=== PATIENT | female | born 1950 | race Caucasian/White ===

== ENCOUNTER 2025-05-01 12:56 | Outpatient (CLI) | payer MEDICARE, SELFPAY ==
--- OUTSIDE RECORDS SUMMARY | 2025-03-22 13:00 | XMS_ITS | Encounter Summary ---
Author Organization [employer] ([place], [place], [place], [place]) Address [address] [place] [address] Care Team Providers Care Healthcare Administration Intern Name Role Phone Fidencio Walsh MD Primary Care Provider [phone] Miranda Menjivar MD Unavailable [phone] Kirsten Ku MD Unavailable [phone] Reason for Referral * DXA (Routine) - Authorized Specialty Diagnoses / Procedures Referred By Deniz lindo Referred To Contact Radiology Diagnoses History of breast cancer Procedures DXA bone density spine and hip Tonja Green PA-C [address] [place] [address] Phone: tel: fax: [address] [place] [address] Phone: tel: fax: Referral ID Status Reason Start Date Expiration Date V isits Requested Visits Authorized [id number] Authorized 03/22/2025 03/22/2026 1 1 Reason for Visit * Reason Comments Follow-up History of breast ca ncer Encounter Details Date Type Department Care Team (Late st Contact Info) Description 03/22/2025 1:00 PM EDT Office Visit [facility] [address] [place] [address] Tonja Green PA-C [address] [facility] [address] [place] [address] History of breast cancer (Primary Dx); Anemia, unspecified type Social History Tobacco Use Types Packs/Day Years Used Date Smoking Tobacco: Former Smokeless Tobacco: Never Tobacco Cessation:Counseling Given: Not Answered Alcohol Use Standard Drinks/Week Comments Not Currently 0 (1 standard drink = 0.6 oz pur e alcohol) Family and Community Support Answer Keshawn e Recorded Help with Day to Day Activities Not on file 09/07/2023 Feeling Lonely or Isolated Not on file 09/07 Educational Attainment Answer Date Cl rded Speak language other than Icelandic at home Not on file 09/07/2023 Want help with school or training Not on file 09/07/2023 Substance Use Answer Date Recorded Used prescription meds for non-medical reasons N ot on file 09/07/2023 Used illegal drugs past 12 months Not on file 09/07/2023 Comments No Sex and Gender Information Value Date Recorded Sex Assigned at Not on file Legal Sex Female 3:28 PM CDT Gender Identity Not on file Sexual Orientation Not on file documented as of this encounter Last Filed Vital Signs Vital Sign Reading Time Taken Comments Blood Pressure 173/74 03/22/2025 12:57 PM EDT Pulse 52 03/22/2025 12:57 PM EDT Temperature 36.1 C (97 F) 03/22/2025 12:57 PM EDT Respiratory Rate 18 03/22/2025 12:57 PM EDT Oxygen Saturation 95% 03/22/2025 12:57 PM EDT Inhaled Oxygen Concentration - - Weight 74.9 kg (165 lb 1.6 oz) 03/22/2025 12:57 PM EDT Height 162.6 cm (5' 4 ) 03/22/2025 12:57 PM EDT Body Mass Index 28.34 03/22/2025 12:57 PM EDT documented in this encounter Progress Notes * Tonja Green PA-C - 03/22/2025 1:00 PM EDT Images from the original note were not included. Oncology Clinic Note Cancer History: Presented 05/19 with 24 mm microcalcifications in RUIQ. Pathology with DCIS, ER >90% positive and AR >75% positive. S/p right lumpectomy 07/19, DCIS only, margins uninvolved. Declined adjuvant XRT. Anastrozole 07/19--current. Chief Complaint: Chief Complaint Patient presents with Follow-up History of breast cancer History of Present Illness: Alba Gerber is a 74 y.o. female Returns for follow-up of DCIS on anastrozole as well as anemia. No specific concerns today. No breast concerns, bone pain, dyspnea, headaches. She is compliant with Anastrozole and tolerating well. She is also taking oral iron daily. No other concerns at this time. Past Medical History: Diagnosis Date Chronic back pain COVID-19 vaccine series completed Ductal carcinoma in situ (DCIS) of breast Gastric ulcer Heart disease High cholesterol Neuropathy Thyroid disease Past Surgical History: Procedure Laterality Date ankle surgery CARPAL TUNNEL RELEASE CHOLECYSTECTOMY triple bypass TUBAL LIGATION Social History Socioeconomic History Marital status: Spouse name: Not on file Number of children: Not on file Years of education: Not on file Highest education level: Not on file Occupational History Not on file Tobacco Use Smoking status: Former Smokeless tobacco: Never Vaping Use Vaping status: Never Used Substance and Sexual Activity Alcohol use: Not Currently Drug use: Never Sexual activity: Not on file Other Topics Concern Not on file Social History Narrative Not on file Social Drivers of Health Food Insecurity: Not on file Transportation: Not on file Family History Problem Relation Name Age of Onset Diabetes Mother Lung cancer Father Coronary artery disease Father Diabetes Father Hypertension Father Kidney disease Father Breast cancer Cousin Kaylin Cancer Brother Rashel Ovarian cancer Neg Hx Allergies: Codeine Medications: Current Outpatient Medications on File Prior to Visit Medication Sig Dispense Refill amitriptyline (ELAVIL) 50 MG tablet Take 1 tablet (50 mg total) by mouth nightly. aspirin 81 MG chewable tablet Take 1 tablet (81 mg total) by mouth. brinzolamide-brimonidine (Simbrinza) 1-0.2 % DrpS calcium carbonate (OS-WILLIE) 600 mg calcium (1,500 mg) Tab Take 600 mg by mouth 2 (two) times daily with breakfast and dinner. carvediloL (COREG) 12.5 MG tablet TAKE 1 TABLET BY MOUTH TWICE DAILY. THIS IS A DOSE CHANGE 180 tablet 0 cetirizine (ZyrTEC) 10 MG tablet Take 1 tablet (10 mg total) by mouth daily. coenzyme Q10 100 mg capsule Take 1 capsule (100 mg total) by mouth daily. diclofenac sodium 1 % gel 4 g by Topical route. ferrous sulfate 325 (65 FE) MG tablet Take 1 tablet (325 mg total) by mouth daily with breakfast. fluticasone propionate (FLONASE) 50 mcg/actuation nasal spray Administer 2 sprays into affected nostril(s). GaviLyte-G 236-22.74-6.74 -5.86 gram solution Take by mouth. guaiFENesin (mucINEX) 600 mg 12 hr tablet Take 2 tablets (1,200 mg total) by mouth 2 (two) times daily. 30 tablet 0 levothyroxine (SYNTHROID) 100 MCG tablet Take 1 tablet (100 mcg total) by mouth daily. levothyroxine (SYNTHROID) 88 MCG tablet Take 1 tablet (88 mcg total) by mouth daily. losartan (COZAAR) 50 MG tablet Take 1 tablet (50 mg total) by mouth daily. montelukast (SINGULAIR) 10 mg tablet Take 1 tablet (10 mg total) by mouth nightly. rosuvastatin (CRESTOR) 20 MG tablet Take 1 tablet (20 mg total) by mouth every evening. timolol (TIMOPTIC) 0.5 % ophthalmic solution Administer 1 drop into affected eye(s) 2 (two) times daily. [DISCONTINUED] anastrozole (ARIMIDEX) 1 mg tablet TAKE 1 TABLET BY MOUTH DAILY 100 tablet 2 No current facility-administered medications on file prior to visit. Review of Systems: 10 systems reviewed and negative except as noted per HPI Vitals Vitals: 03/22/25 1257 BP: (!) 173/74 Pulse: 52 Resp: 18 Temp: 95 ??F (35 ??C) SpO2: 95% Physical Exam Vitals reviewed. Constitutional: General: She is not in acute distress. Appearance: Normal appearance. She is normal weight. She is not ill-appearing or toxic-appearing. HENT: Head: Normocephalic and atraumatic. Nose: Nose normal. Eyes: Extraocular Movements: Extraocular movements intact. Conjunctiva/sclera: Conjunctivae normal. Pupils: Pupils are equal, round, and reactive to light. Cardiovascular: Rate and Rhythm: Normal rate and regular rhythm. Heart sounds: Murmur heard. Pulmonary: Effort: Pulmonary effort is normal. No respiratory distress. Breath sounds: Normal breath sounds. No wheezing, rhonchi or rales. Chest: Chest wall: No mass or tenderness. Breasts: Right: No inverted nipple, mass, nipple discharge, skin change or tenderness. Left: No inverted nipple, mass, nipple discharge, skin change or tenderness. Abdominal: General: There is no distension. Musculoskeletal: General: Normal range of motion. Cervical back: Normal range of motion and neck supple. Right lower leg: No edema. Left lower leg: No edema. Lymphadenopathy: Cervical: No cervical adenopathy. Upper Body: Right upper body: No supraclavicular or axillary adenopathy. Left upper body: No supraclavicular or axillary adenopathy. Skin: General: Skin is warm and dry. Coloration: Skin is not jaundiced or pale. Neurological: General: No focal deficit present. Mental Status: She is alert and oriented to person, place, and time. Motor: No weakness. Gait: Gait normal. Psychiatric: Mood and Affect: Mood normal. Behavior: Behavior normal. Thought Content: Thought content normal. Judgment: Judgment normal. Relevant Results: Office Visit on 03/22/2025 Component Date Value Ref Range Status WBC 03/22/2025 6.9 4.5 - 12.5 K/??L Final RBC 03/22/2025 4.34 4.00 - 5.25 M/??L Final Hemoglobin 03/22/2025 13.3 12.0 - 16.0 GM/DL Final Hematocrit 03/22/2025 41.8 36.0 - 46.0 % Final MCV 03/22/2025 96 80 - 100 fL Final MCH 03/22/2025 30.6 26.0 - 34.0 pg Final MCHC 03/22/2025 31.8 31.0 - 37.0 GM/DL Final RDW 03/22/2025 13.0 12.0 - 16.8 % Final Platelets 03/22/2025 266 140 - 440 K/CU MM Final MPV 03/22/2025 9.3 7.4 - 10.4 fL Final % Neutros 03/22/2025 60 45 - 80 % Final % Lymphs 03/22/2025 29 15 - 45 % Final % Monos 03/22/2025 8 0 - 10 % Final % Eos 03/22/2025 3 0 - 5 % Final % Baso 03/22/2025 1 0 - 3 % Final # Neutros 03/22/2025 4.15 2.00 - 8.80 K/??L Final # Lymphs 03/22/2025 2.01 0.70 - 5.50 K/??L Final # Monos 03/22/2025 0.55 0.00 - 1.70 K/??L Final # Eos 03/22/2025 0.19 0.00 - 0.80 K/??L Final # Baso 03/22/2025 0.04 0.00 - 0.20 K/??L Final Media Information Plan: Cancer Staging Malignant neoplasm of upper-inner quadrant of right breast in female, estrogen receptor positive (HCC) Staging form: Breast, AJCC 8th Edition - Clinical stage from 06/03/2021: Stage 0 (cTis (DCIS), cN0, cM0, ER+, AR+) - Signed by Kirsten Ku MD on 07/09/2022 74 y.o. female with DCIS of the right breast. Tolerating adjuvant anastrozole well. We will continue for 5 years, complete 07/24. - Physical exam today was unremarkable. October 2024 mammogram was unremarkable. Repeat 11/21. - Complaint with Anastrozole. Tolerating well. - Continue calcium and vitamin D. Overdue for her DEXA, repeat ordered today. Prior showing NBD. - Regarding her anemia found back in January, she has had a thorough GI workup with no source of bleeding found. She continues on oral iron supplementation. Iron studies from today are pending. - Recommended to monitor her BP at home. For any persistently elevated readings to advised to contact her PCP. Follow-up in 6 months. Advised to call with any new questions or concerns. Signed: Electronically signed by Tonja Green PA-C 03/22/25 1:34 PM documented in this encounter Miscellaneous Notes * Result Encounter Note - Tonja Green PA-C - 03/22/2025 1:00 PM EDT Kidney dysfunction appears somewhat chronic. Push fluids, avoid NSAIDs. Follow- up with PCP for this. documented in this encounter Plan of Treatment Upcoming Encounters Date Type Department Care Team (Late st Contact Info) Description 11/12/2025 1:00 PM EDT Office Visit [facility] - [address] [place] [address] Alicia Cruz MD [address] [place] [address] 11/21/2025 11:00 AM EDT Appointment [facility] [address] [facility] [address] [place] [id number] Tonja Green PA-C [address] [facility] [address] [place] [address] 11/21/2025 12:00 PM EDT Appointment [facility] [address] [facility] [address] [place] [address] Valentin Chaves MD [address] [facility] [address] [place] [address] 11/21/2025 1:00 PM EDT Office Visit [facility] [address] [facility] [address] [place] [address] Valentin Chaves MD [address] [facility] [address] [place] [address] 11/21/2025 3:00 PM EDT Office Visit [facility] - [facility] [address] [place] [phone] Kirsten Ku MD [address] [place] [address] Scheduled Orders Name Type Priority Associated Diagnoses Orde r Schedule DXA bone density spine and hip Imaging Routine History of breast cancer Expected: 03/22/2025, Expires: 04/22/2026 CBC w/ Auto Diff Lab Routine History of breast cancer Anemia, unspecified type Expected: 11/21/2025, Expires: 03/22/2026 CMP (done in hospital lab) Lab Routine History of breast cancer Anemia, unspecified type Expected: 11/21/2025, Expires: 03/22/2026 Iron and TIBC Lab Routine History of breast cancer Anemia, unspecified type Expected: 11/21/2025, Expires: 03/22/2026 Ferritin Lab Routine History of breast cancer Anemia, unspecified type Expected: 11/21/2025, Expires: 03/22/2026 documented as of this encounter Procedures Procedure Name Priority Date/Time Associated Diagnosis Comments CBC W/ AUTO DIFF Routine 03/22/2025 12:5 1 PM EDT History of breast cancer Anemia, unspecified type IRON AND TIBC Routine 03/22/2025 12:51 PM EDT History of breast cancer Anemia, unspecified type FERRITIN Routine 03/22/2025 12:51 PM EDT History of breast cancer Anemia, unspecified type COMPREHENSIVE METABOLIC PANEL Routine 03/22/2025 12:51 PM EDT History of breast cancer Anemia, unspecified type documented in this encounter Results * Ferritin (03/22/2025 12:51 PM EDT) Ferritin 55.00 8.00 - 252.00 ng/mL 03/22/2025 3:00 PM EDT [facility] Blood Venipuncture / Unknown 03/22/2025 12:51 PM EDT 03/22/2025 12:56 PM EDT us Tonja Peter PA-C LAB BLOOD ORDERABLES Final Re sult Performing Organization Address [facility]/ZIP Co de Phone Number [facility] [address] [place] [address], [facility] [phone] * Iron and TIBC (03/22/2025 12:51 PM EDT) Iron 77 50.0 - 170.0 ug/dL 03/22/2025 3:00 PM EDT [facility] TIBC 291 250 - 450 ug/dL 03/22/2025 3:00 PM EDT [facility] % Saturation 26 15 - 55 % 03/22/2025 3:00 PM EDT [facility] UIBC 214 03/22/2025 3:00 PM EDT [facility] Blood Venipuncture / Unknown 03/22/2025 12:51 PM EDT 03/22/2025 12:56 PM EDT Tonja Green PA-C LAB BLOOD ORDERABLES Final Re sult Performing Organization Address [facility] Co de Phone Number [facility] [address] [place] [address], [facility] [phone] * (ABNORMAL) CMP (done in hospital lab) (03/22/2025 12:51 PM EDT) Sodium 138 136 - 146 meq/L 03/22/2025 3:00 PM EDT [facility] Potassium 4.0 3.5 - 5.1 meq/L 03/22/2025 3:00 PM EDT [facility] Chloride 105 102 - 112 meq/L 03/22/2025 3:00 PM EDT [facility] CO2 29 21 - 32 meq/L 03/22/2025 3:00 PM EDT [facility] Calcium 9.3 8.5 - 10.1 mg/dL 03/22/2025 3:00 PM EDT [facility] Glucose 99 74 - 100 mg/dL 03/22/2025 3:00 PM EDT [facility] BUN 22 7 - 22 mg/dL 03/22/2025 3:00 PM EDT [facility] Creatinine 1.40(H) 0.55 - 1.02 mg/dL 03/22/2025 3:00 PM EDT [facility] BUN/Creatinine 16 8 - 20 03/22/2025 3:00 PM EDT [facility] Albumin 4.0 3.4 - 5.0 g/dL 03/22/2025 3:00 PM EDT [facility] Alkaline Phosphatase 61 27 - 136 U/L 03/22/2025 3:00 PM EDT [facility] ALT 22 12 - 78 U/L 03/22/2025 3:00 PM EDT [facility] AST 28 5 - 37 U/L 03/22/2025 3:00 PM EDT [facility] Total Bilirubin 0.4 0.2 - 1.3 mg/dL 03/22/2025 3:00 PM T [facility] Protein, Total 7.8 6.4 - 8.2 gm/dL 03/22/2025 3:00 PM T [facility] Anion Gap 8(L) 9 - 20 03/22/2025 3:00 PM T [facility] A/G Ratio 1.1 1.1 - 2.5 03/22/2025 3:00 PM T [facility] Globulin 3.8 1.5 - 4.5 g/dL 03/22/2025 3:00 PM T [facility] Osmolality Calc 279.0 mOsm/kg 3:00 PM [facility] eGFR (mL/min/1.73m2) 40(L) >=60 mL/min/1.7 3m2 03/22/2025 3:00 PM T [facility] Comment:ESTIMATED GFR IS NOT ACCURATE CREATININE CLEARANCE IN PREDICTING GLOMERULAR FILTRATION RATE. ESTIMATED GFR IS NOT APPLICABLE FOR DIALYSIS PATIENTS. Blood Venipuncture / Unknown 03/22/2025 12:51 PM EDT 03/22/2025 12:56 PM EDT us Tonja Green PA-C LAB BLOOD ORDERABLES Final Re sult [facility] [address] [place] [address], [facility] [phone] * CBC w/ Auto Diff (03/22/2025 12:51 PM EDT) WBC 6.9 4.5 - 12.5 K/ L 03/22/2025 1:01 PM EDT [facility] RBC 4.34 4.00 - 5.25 M/ L 03/22/2025 1:01 PM EDT [facility] Hemoglobin 13.3 12.0 - 16.0 GM/DL 03/22/2025 1:01 PM EDT [facility] Hematocrit 41.8 36.0 - 46.0 % 03/22/2025 1:01 PM EDT [facility] MCV 96 80 - 100 fL 03/22/2025 1:01 PM EDT [facility] MCH 30.6 26.0 - 34.0 pg 03/22/2025 1:01 PM EDT [facility] MCHC 31.8 31.0 - 37.0 GM/DL 03/22/2025 1:01 PM EDT [facility] RDW 13.0 12.0 - 16.8 % 03/22/2025 1:01 PM EDT [facility] Platelets 266 140 - 440 K/CU MM 03/22/2025 1:01 PM EDT [facility] MPV 9.3 7.4 - 10.4 fL 03/22/2025 1:01 PM EDT [facility] % Neutros 60 45 - 80 % 03/22/2025 1:01 PM EDT [facility] % Lymphs 29 15 - 45 % 03/22/2025 1:01 PM EDT [facility] % Monos 8 0 - 10 % 03/22/2025 1:01 PM EDT [facility] % Eos 3 0 - 5 % 03/22/2025 1:01 PM EDT [facility] % Baso 1 0 - 3 % 03/22/2025 1:01 PM EDT [facility] # Neutros 4.15 2.00 - 8.80 K/ L 03/22/2025 1:01 PM EDT [facility] # Lymphs 2.01 0.70 - 5.50 K/ L 03/22/2025 1:01 PM EDT [facility] # Monos 0.55 0.00 - 1.70 K/ L 03/22/2025 1:01 PM EDT [facility] # Eos 0.19 0.00 - 0.80 K/ L 03/22/2025 1:01 PM EDT [facility] # Baso 0.04 0.00 - 0.20 K/ L 03/22/2025 1:01 PM EDT [facility] Blood Venipuncture / Unknown 03/22/2025 12:51 PM EDT 03/22/2025 12:56 PM EDT Narrative [facility] - 03/22/2025 1:01 PM EDT When CBC w/ Auto Diff is ordered the lab will add a Manual Differential as a quality check at no additional charge if: Lymphocytes greater than seventy five percent with normal or increased WBC Monocytes greater than Fifteen percent Basophil greater than four percent Bands >10% or several immature myeloids are seen on scan Blast? Flag noted Atypical Lymph flag noted us Tonja Green PA-C LAB BLOOD ORDERABLES Final Re sult [facility] [address] [place] [address], [facility] [phone] documented in this encounter Visit Diagnoses Diagnosis History of breast cancer- Primary Personal history of malignant neoplasm of breast Anemia, unspecified type documented in this encounter Care Teams Healthcare Administration Intern Relationship Specialty Start Date End Date Fidencio Wlash MD [address] [place] [address] [place] [address] PCP - General General Internal Medicine 07/15/22 Miranda Menjivar MD [address] [facility] [address] [place] [address] Referring Physician Cardiology 02/07/[address] [facility] [address] [place] [address] Hematology and Oncology 02/12/25 documented as of this encounter
--- OUTSIDE RECORDS SUMMARY | 2025-04-04 13:00 | XMS_ITS | Encounter Summary ---
Author Organization [facility] Address [address] [place] [address] Care Team Providers Care Dredge Hand Name Role Phone Fidencio Walsh MD Primary Care Provider [phone] Reason for Visit * Reason Comments Primary Care Follow-Up 1 mo f/u Encounter Details Date Type Department Care Team (Late st Contact Info) Description 04/04/2025 1:00 PM EDT Office Visit [facility]IMARY [facility] [address] [place] [address] [place] [address] Fidencio Walsh MD [address] [place] [address] [place] [address] Stage 3a chronic kidney disease (Primary Dx); Iron deficiency anemia, unspecified iron deficiency anemia type; Coronary artery disease involving coronary bypass graft of [place] heart without angina pectoris; Prediabetes Social History [...] work in preparation of cardiac catheterization at [facility]2024 with creatinine was 1.49 and GFR 37, where the cardiac catheterization was canceled by Dr. Menjivar. Follow-up by myself 03/08/2024 showed notable improvement with creatinine 1.08 and GFR 54, subsequent to that through [facility] on 08/24/2024 with creatinine 1.0. Prior [...] daily which does give renal benefit. * Fidencio Walsh MD - 04/04/2025 1:31 PM EDTAssociated [...] deficiency anemia, she has subsequently had through research and development director Dr. Wing a 06/04/2024 colonoscopy with one [...] anemia as well. Most recent follow-up with [facility]/oncology on 03/22/2025. * Fidencio Walsh MD - 04/04/2025 1:28 PM EDTAssociated Problem(s): Coronary artery disease involving coronary bypass graft of [place] heart without angina pectoris Reported history of 3 vessel bypass grafting in 2011, performed in [place]. Previously she had seen Dr. Calderon, police worker in [place]. She saw Dr. Womack, who had a non-concerning stress echocardiogram 03/30/2018, as clearance for colonoscopy. She switched to Dr. Alicia Cruz with appointment 01/13/2024 where she had open he had a stress echocardiogram which had some potentially concerning component where she was referred to motor tune up specialist Dr. Menjivar, with recommendation for cardiac [...] work in preparation of cardiac catheterization at [facility]2024 with creatinine was 1.49 and GFR 37, where the cardiac catheterization was canceled by Dr. Menjivar. Follow-up by myself 03/08/2024 showed notable improvement with creatinine 1.08 and GFR 54, subsequent to that through [facility] hematology on 08/24/2024 with creatinine 1.0. [...] deficiency anemia, she has subsequently had through research and development director Dr. Wing a 06/04/2024 colonoscopy with one [...] anemia as well. Most recent follow-up with [facility]/oncology on 03/22/2025. 3. Coronary artery disease involving coronary bypass graft of [place] heart without angina pectoris Assessment & Plan: Reported history of 3 vessel bypass grafting in 2011, performed in [place]. Previously she had seen Dr. Calderon, police worker in [place]. She saw Dr. Womack, who had a non-concerning stress echocardiogram 03/30/2018, as clearance for colonoscopy. She switched to Dr. Alicia Cruz with appointment 01/13/2024 where she had open he had a stress echocardiogram which had some potentially concerning component where she was referred to motor tune up specialist Dr. Menjivar, with recommendation for cardiac [...] Description 06/20/2025 2:00 PM EDT Office Visit [facility] [address] [place] [address] [place] [address] Fidencio Walsh MD [address] [place] [address] [place] [address] documented as of this [...] 1:32 PM EDT 04/04/2025 Comment:Urine Release to [facility] (AMBULATORY) - 04/05/2025 1:07 PM EDT Performed at: [address] [place] [id number] Peoplesoft Consultant: Sidney Verdin PhD, Phone: [phone] Fidencio Walsh MD URINE ORDERABLES Final Result [facility] (AMBULATORY) [address] [place] [id number], [facility] [address] [place] [address], * (ABNORMAL) Basic Metabolic Panel (04/04/2025 1:32 PM EDT) Pathologist [facility] Glucose 85 70 - 99 mg/dL [facility] [...] 1:32 PM EDT 04/04/2025 Comment:Blood Release to [facility] (AMBULATORY) - 04/05/2025 11:07 AM EDT Performed at: 01 - [facility] [address] [facility], [place], [place] [id number] [employer] Consultant: Sidney Verdin PhD, Phone: [phone] us Fidencio Walsh MD LAB BLOOD ORDERABLES Final Resul t [facility] (AMBULATORY) [address] [place] [address], [place] [phone] [facility] [address] [place] [address], documented in this encounter Visit Diagnoses Diagnosis Stage 3a chronic kidney disease- Primary Iron deficiency anemia, unspecified iron deficiency anemia type Coronary artery disease involving coronary bypass graft of [place] heart without angina pectoris Prediabetes Other abnormal glucose documented in this encounter Care Teams Dredge Hand Relationship Specialty Start Date End Date Fidencio Walsh MD [address] [place] [address] [place] [id number] PCP - General Internal Medicine 08/09/22 documented as of this encounter
--- OUTSIDE RECORDS SUMMARY | 2025-05-01 13:10 | XMS_ITS | Encounter Summary ---
Author Organization [facility] ([place], [place], [place], [place]) Address [address] [place] [address] Care Team Providers Care Artillery Specialist Name Role Phone Fidencio Walsh MD Primary Care Provider [phone] Miranda Menjivar MD Unavailable [phone] Kirsten Ku MD Unavailable [phone] Reason for Visit * Reason Onset Date Comments Medical Records 03/26/2025 Encounter Details Date Type Department Care Team (Late st Contact Info) Description 03/26/2025 Telephone [facility] - [facility] [address] [facility] [address] [place] [address] Kirsten Ku MD [address] [facility] [place] [address] Medical Records Social History Tobacco Use Types Packs/Day Years Used Date Smoking Tobacco: Former Smokeless Tobacco: Never Alcohol Use Standard Drinks/Week Comments Not Currently 0 (1 standard drink = 0.6 oz pur e alcohol) Family and Community Support Answer Keshawn e Recorded Help with Day to Day Activities Not on file 09/07/2023 Feeling Lonely or Isolated Not on file 09/07 Educational Attainment Answer Date Cl rded Speak language other than Mongolian at home Not on file 09/07/2023 Want [...] on file documented as of this encounter Miscellaneous Notes * Telephone Encounter - Daryl Singh RN - 03/26/2025 11:[address] Fidencio Bansal's nurse with PCP called to request pt's last office note and lab results. Faxed to [phone] at this time. documented in this encounter Plan of Treatment Upcoming Encounters Date Type Department Care Team (Late st Contact Info) Description 11/12/2025 1:00 PM EDT Office Visit [facility] Cardiology - [address] [place] [address] Alicia Cruz MD [address] [place] [address] 11/21/2025 11:00 AM EDT Appointment [facility] [address] [facility] [address] [place] [address] Tonja Green PA-C [address] [facility] [address] [place] [address] 11/21/2025 12:00 PM EDT Appointment [facility] [address] [facility] [address] [place] [address] Valentin Chaves MD [address] [facility] [address] [place] [address] 11/21/2025 1:00 PM EDT Office Visit [facility] [address] [facility] [address] [place] [address] Valentin Chaves MD [address] [facility] [address] [place] [address] 11/21/2025 3:00 PM EDT Office Visit [facility] - [address] [facility] [address] [place] [address] Kirsten Ku MD [address] [place] [address] [address] [place] [address] documented as of this encounter Visit Diagnoses Not on filedocumented in this encounter Care Teams Artillery Specialist Relationship Specialty Start Date End Date [place], Fidencio Chowdhury MD [address] [place] [address] [place] [address] PCP - General General Internal Medicine 07/15/22 Miranda Menjivar MD [address] [facility] [address] [place] [address] Referring Physician Cardiology 02/07/24 Kirsten Ku MD [facility] [address] [place] [address] Hematology and Oncology 02/12/25 documented as of this encounter
--- OUTSIDE RECORDS SUMMARY | 2025-05-01 13:10 | XMS_ITS | Encounter Summary ---
Author Organization [facility] Address [address] [place] [address] Care Team Providers Care Diet Supervisor Name Role Phone Fidencio Walsh MD Primary Care Provider [phone] Reason for Visit * Reason Comments Med Refill Encounter Details Date Type Department Care Team (Late st Contact Info) Description 04/01/2022 Refill [facility] PRIMARY [facility]ARE [address] [place] [address] [place] [address] Fidencio Walsh MD [address] [place] [address] [place] [address] Social History Tobacco Use Types Packs/Day Years Used Date Smoking Tobacco: Never Assessed Comments Unknown Sex and Gender Information Value Date Recorded Sex Assigned at Female 02/03/2023 2:56 PM EDT Legal Sex Female 4:45 PM EDT Gender Identity Female 02/03/2023 2:56 PM EDT Sexual Orientation Straight 02/03/2023 2: 56 PM EDT documented as of this encounter Plan of Treatment Upcoming Encounters Date Type Department Care Team (Late st Contact Info) Description 06/20/2025 2:00 PM EDT Office Visit [facility] [address] [place] [address] [place] [address] Fidencio Walsh MD [address] [place] [address] [place] [address] documented as of this encounter Visit Diagnoses Not on filedocumented in this encounter Care Teams Diet Supervisor Relationship Specialty Start Date End Date Fidencio Walsh MD [facility] [address] PCP - General Internal Medicine 08/09/22 documented as of this encounter
--- OUTSIDE RECORDS SUMMARY | 2025-05-01 13:10 | XMS_ITS | Clinical Summary ---
Author Organization [employer] ([place], [place], [place], [place]) Address [address] [place] [address] Care Team Providers Care Technical Administrative Assistant Name Role Phone Fidencio Walsh MD Primary Care Provider [phone] Miranda Menjivar MD Unavailable [phone] Kirsten Ku MD Unavailable [phone] Allergies Active Allergy Reactions Criticality Noted Date Comments Yeny Loredo 05/19/2022 1CAUSES SWELLING AND SOB Medications rosuvastatin (CRESTOR) 20 MG tablet Take 1 tablet (20 mg total) by mouth every evening. 2 Active coenzyme Q10 100 mg capsule Take 1 capsule (100 mg total) by mouth daily. Active calcium carbonate (OS-WILLIE) 600 mg calcium (1,500 mg) Tab Take 600 mg by mouth 2 (two) times daily with breakfast and dinner. Active aspirin 81 MG chewable tablet Take 1 tablet (81 mg total) by mouth. Active brinzolamide-br imonidine (Simbrinza) 1-0.2 % DrpS 3 Active cetirizine (ZyrTEC) 10 MG tablet Take 1 tablet (10 mg total) by mouth daily. 3 Active fluticasone propionate (FLONASE) 50 mcg/actuation nasal spray Administer 2 sprays into affected nostril(s). 3 Active montelukast (SINGULAIR) 10 mg tablet Take 1 tablet (10 mg total) by mouth nightly. 3 Active timolol (TIMOPTIC) 0.5 % ophthalmic solution Administer 1 drop into affected eye(s) 2 (two) times daily. 3 Active carvediloL (COREG) 12.5 MG tablet TAKE 1 TABLET BY MOUTH TWICE DAILY. THIS IS A DOSE CHANGE 180 tablet 4 Active GaviLyte-G 236-22.74-6.74 -5.86 gram solution Take by mouth. 4 Active diclofenac sodium 1 % gel 4 g by Topical route. 4 Active guaiFENesin (mucINEX) 600 mg 12 hr tablet Take 2 tablets (1,200 mg total) by mouth 2 (two) times daily. 30 tablet 4 Active amitriptyline (ELAVIL) 50 MG tablet Take 1 tablet (50 mg total) by mouth nightly. 4 Active ferrous sulfate 325 (65 FE) MG tablet Take 1 tablet (325 mg total) by mouth daily with breakfast. 4 Active levothyroxine (SYNTHROID) 100 MCG tablet Take 1 tablet (100 mcg total) by mouth daily. 4 Active levothyroxine (SYNTHROID) 88 MCG tablet Take 1 tablet (88 mcg total) by mouth daily. Active losartan (COZAAR) 50 MG tablet Take 1 tablet (50 mg total) by mouth daily. 5 Active anastrozole (ARIMIDEX) 1 mg tabletIndicatio ns:History of breast cancer Take 1 tablet (1 mg total) by mouth daily. 100 tablet 2 5 Active Active Problems Problem Noted Date Diagnosed Date Iron deficiency anemia 09/21/2024 Stage 3a chronic kidney disease 03/08/2024 Anginal equivalent 02/07/2024 Prediabetes 08/02/2023 08/16/2023 Overview (08/16/2023): Last Assessment & Plan: New diagnosis with hemoglobin A1c of 5.7% with 02/08/2023 blood work. Recheck today 08/03/2023 with hemoglobin A1c stable at 5.7%. No indication for medication at this time. She is aware of increased thirst or urination pattern is a sign of potential progression to diabetes. Continue healthy diet, exercise, weight loss. CAD (coronary artery disease) 08/25/2022 History of obstructive sleep apnea 08/25/2022 Aortic heart murmur 08/25/2022 S/P CABG (coronary artery bypass graft) 08/25/20 22 Coronary artery disease invo lving coronary bypass graft of [place] heart without angina pectoris 08/09/2022 Overview (08/25/2022): Last Assessment & Plan: Reported history of 3 vessel bypass grafting in 2011, performed in [place]. She notably had seen Dr. Calderon, glass curvature gauger in [place]. She saw Dr. Womack, who had a non-concerning stress echocardiogram 03/30/2018, as clearance for colonoscopy, but due to some office staff issue she switched to Dr. Alicia Cruz with appointment December 2021 without changes, follow-up 6-month being rescheduled and pending. She takes an aspirin 81 mg tablet daily, Coreg 6.25 twice daily (increased 06/12/2020), atorvastatin 40 mg daily for cardiovascular risk benefit switch to Crestor 20 mg daily preparation preference 11/19/2021. Attempt to add 02/02/2018 losartan 25 mg daily, not tolerated due to fatigue. She declines trying additional medication, but we could reconsider a different LEVAR inhibitor or angiotensin receptor yari in future. EKG without concern 06/12/2020, unchanged compared to 05/07/2019. Not repeated as managed by cardiology. Patient has no symptoms concerns including no chest pain, palpitations or shortness of breath. Essential hypertension 08/09/2022 Overview (08/25/2022): Last Assessment & Plan: Coreg 6.25 twice daily (increased 06/12/2020), previous losartan not tolerated due to fatigue. Monitor blood pressure 3-5 times weekly. Caution salt intake, recommended activity level and benefits of weight loss. Mixed hyperlipidemia 08/09/2022 Overview (08/25/2022): Last Assessment & Plan: 11/23/2021 total cholesterol 174, triglycerides 158, HDL 52, LDL 97. Comparison 06/27/2020 with total cholesterol 138, triglycerides 99, HDL 40, LDL 70. Atorvastatin 40 mg daily previous, outpatient request, switch to Crestor 20 mg daily 11/19/2021. Continue healthy dietary intake and activity level. HERB on CPAP 08/09/2022 Overview (08/25/2022): Last Assessment & Plan: Diagnosis [address] Womack, patient declines CPAP, I recommended benefits from a cardiovascular perspective and symptom benefit, she continues to decline. If she would be interested I would be happy to refer her again to refer for reassessment. Encounter for general adult medical examination without abnormal findings 08/09/2022 Malignant neoplasm of upper- inner quadrant of right breast in female, estrogen receptor positive 07/09/2022 Cancer Staging:Clinical stage from 06/03/2021:Stage 0(cTis (DCIS), cN0, cM0, ER+, VT+) - Signed by Kirsten Ku MD on 07/09/2022 Resolved Problems Problem Noted Date Diagnosed Date Resolved Date At risk for sleep apnea 08/25/202207/30 Encounters Date Type Department Care Team Description 03/26/2025 Telephone [facility] [place] [address] [place] [address] Kirsten Ku MD Medical Records 03/25/2025 Telephone [facility] [place] [address] [place] [address] Tonja Green PA-C Results 03/22/2025 1:00 PM EDT Office Visit [facility] [place] [address] [place] [address] Tonja Green PA-C History of breast cancer (Primary Dx); Anemia, unspecified type 03/22/2025 Travel 02/12/2025 Telephone [facility] - [address] [place] [address] Deysi Campbell CMA Call Back from Last 3 Months Family History Medical History Relation Name Comments Cancer Brother Rashel Breast cancer Cousin Kaylin Coronary artery disease Father Diabetes Father Hypertension Father Kidney disease Father Lung cancer Father Diabetes Mother Ovarian cancer Neg Hx Relation Name Status Comments Brother Rashel Cousin Kaylin Alive Father Mother Social History Tobacco Use Types Packs/Day Years [...] Date Cl rded Speak language other than Dominican at home Not on file 09/07/2023 Want [...] on file Sexual Orientation Not on file Last Filed Vital Signs Vital Sign Reading [...] Mass Index 28.34 03/22/2025 12:57 PM EDT Plan of Treatment Upcoming Encounters Date Type Department Care Team (Late st Contact Info) Description 11/12/2025 1:00 PM EDT Office Visit [facility] - [address] [place] [address] Alicia Cruz MD [address] [facility] [address] [place] [address] 11/21/2025 11:00 AM EDT Appointment [facility] [address] [place] [phone] Tonja Green PA-C [address] [facility] [address] [place] [address] 11/21/2025 12:00 PM EDT Appointment [address] [place] [address] Valentin Chaves MD [address] [facility] [address] [place] [phone] 11/21/2025 1:00 PM EDT Office Visit [facility] [address] [phone] Valentin Chaves MD [address] [address] 11/21/2025 3:00 PM EDT Office Visit [facility] - [place] [address] [facility] [address] [place] [phone] Kirsten Ku MD [address] [facility] [address] [place] [address] Health Maintenance Due Date Last Done Comments Medicare Initial AWV G0438 CT Colonography 1950 Colonoscopy 1950 Colorectal Cancer Screening 1950 FOBT/FIT 1950 Fit-DNA (Cologuard) 1950 Sigmoidoscopy 1950 Depression Screening (12+) 1962 Hepatitis C Screening 1968 Respiratory Syncytial Virus (RSV) Adult or (1 - Risk 60-74 years 1-dose series) 2010 DXA SCAN 10/19/2023 10/19/2021 COVID-19 VACCINE (6 - 2023-2 5 season) 2024 05/31/2022, 01/14/2022, 05/26/2021, Additional history exists Falls Risk Screening 08/29/2024 Influenza Vaccine (#1) 2025 , 05/26/2023, 05/31/2022, Additional history exists Tobacco Cessation Counseling and Screening (12+) 03/22/2026 03/22/2025 Breast Cancer Screening 11/15/2026 11/16/19, 11/10/2023, 07/15/2022, Additional history exists DTAP/TDAP/TD VACCINES (3 - T d or Tdap) 07/30/2034 07/30/2024, 05/05/2018 Shingles Vaccine (Zoster) Completed 11/16/2022, Pneumococcal 50+ years Completed 12/21/2022, 2021 Procedures Procedure Name Priority Date/Time Associated Diagnosis Comments FERRITIN Routine 03/22/2025 12:51 PM EDT History of breast cancer Anemia, unspecified type IRON AND TIBC Routine 03/22/2025 12:51 PM EDT History of breast cancer Anemia, unspecified type COMPREHENSIVE METABOLIC PANEL Routine 03/22/2025 12:51 PM EDT History of breast cancer Anemia, unspecified type CBC W/ AUTO DIFF Routine 03/22/2025 12:5 1 PM EDT History of breast cancer Anemia, unspecified type MM DIGITAL MAMMO DIAGNOSTIC WITH CORINE BILATERAL Routine 11/15/2024 12:28 PM EDT History of lumpectomy of right breast DXA BONE DENSITY SPINE AND HIP Routine 10/19/2021 11:00 AM EST from Last 3 Months or Most Recently Relevant to Health Maintenance Results * CBC w/ Auto Diff (03/22/2025 12:51 PM EDT) Pathologist [facility] WBC 6.9 4.5 - 12.5 K/ L [...] 12:56 PM EDT Narrative [facility] - 03/22/2025 1:01 PM EDT When CBC [...] noted Atypical Lymph flag noted us Tonja Peter PA-C LAB BLOOD ORDERABLES Final Re sult [facility] [address] [place] [address], [facility] [phone] * Iron and TIBC (03/22/2025 12:51 PM EDT) Iron 77 50.0 - 170.0 ug/dL 03/22/2025 3:00 PM EDT [facility] TIBC 291 250 - 450 ug/dL 03/22/2025 3:00 PM EDT [facility] % Saturation 26 15 - 55 % 03/22/2025 3:00 PM EDT [facility] UIBC 214 03/22/2025 3:00 PM EDT [facility] Blood Venipuncture / Unknown 03/22/2025 12:51 PM EDT 03/22/2025 12:56 PM EDT us Tonja Peter PA-C LAB BLOOD ORDERABLES Final Re sult Performing Organization Address City/[facility]/ZIP Co de Phone Number [facility] [address] [place] [address], [facility] [phone] * Ferritin (03/22/2025 12:51 PM EDT) Ferritin 55.00 8.00 - 252.00 ng/mL 03/22/2025 3:00 PM EDT [facility] Blood Venipuncture / Unknown 03/22/2025 12:51 PM EDT 03/22/2025 12:56 PM EDT us Tonja EISENBERG-C LAB BLOOD ORDERABLES Final Re sult Performing Organization Address [facility] Co de Phone Number [facility] [address] [place] [address], [facility] [phone] * (ABNORMAL) CMP (done in hospital lab) (03/22/2025 12:51 PM EDT) Sodium 138 136 - 146 meq/L 03/22/2025 3:00 PM EDT [facility] Potassium 4.0 3.5 - 5.1 meq/L 03/22/2025 3:00 PM EDT [facility] Chloride 105 102 - 112 meq/L 03/22/2025 3:00 PM EDT [facility] CO2 29 21 - 32 meq/L 03/22/2025 3:00 PM EDT [facility] Calcium 9.3 8.5 - 10.1 mg/dL 03/22/2025 3:00 PM EDT [facility] Glucose 99 74 - 100 mg/dL 03/22/2025 3:00 PM EDT [facility] BUN 22 7 - 22 mg/dL 03/22/2025 3:00 PM EDT [facility] Creatinine 1.40(H) 0.55 - 1.02 mg/dL 03/22/2025 3:00 PM EDT [facility] BUN/Creatinine 16 8 - 20 03/22/2025 3:00 PM EDT [facility] Albumin 4.0 3.4 - 5.0 g/dL 03/22/2025 3:00 PM EDT [facility] Alkaline Phosphatase 61 27 - 136 U/L 03/22/2025 3:00 PM EDT [facility] ALT 22 12 - 78 U/L 03/22/2025 3:00 PM EDT [facility] AST 28 5 - 37 U/L 03/22/2025 3:00 PM EDT [facility] Total Bilirubin 0.4 0.2 - 1.3 mg/dL 03/22/2025 3:00 PM EDT [facility] Protein, Total 7.8 6.4 - 8.2 gm/dL 03/22/2025 3:00 PM EDT [facility] Anion Gap 8(L) 9 - 20 03/22/2025 3:00 PM EDT [facility] A/G Ratio 1.1 1.1 - 2.5 03/22/2025 3:00 PM EDT [facility] Globulin 3.8 1.5 - 4.5 g/dL 03/22/2025 3:00 PM EDT [facility] Osmolality Calc 279.0 mOsm/kg 3:00 PM EDT [facility] eGFR (mL/min/1.73m2) 40(L) >=60 mL/min/1.7 3m2 03/22/2025 3:00 PM EDT [facility] Comment:ESTIMATED GFR IS NOT ACCURATE CREATININE CLEARANCE IN PREDICTING GLOMERULAR FILTRATION RATE. ESTIMATED GFR IS NOT APPLICABLE FOR DIALYSIS PATIENTS. Blood Venipuncture / Unknown 03/22/2025 12:51 PM EDT 03/22/2025 12:56 PM EDT us Tonja Green PA-C LAB BLOOD ORDERABLES Final Re sult [facility] [address] [facility] [place] [address], [facility] [phone] * MM digital mammo diagnostic with corine bilateral (11/15/2024 12:28 PM EDT) Anatomical Region Laterality Modality Breast Bilateral Mammography 11/15/2024 1:05 PM EDT Impressions 11/15/2024 1:11 PM EDT FINAL IMPRESSION: Stable mammogram. No findings suspicious for malignancy. Bi-RADS: ACR BI-RADS 2: Benign RECOMMENDATIONS: Continued 12 month follow-up per lumpectomy protocol This report will serve as the order for the recommended imaging studies/procedures. At our facility, a tazlina marker is positioned over a visible skin lesion and a linear marker is placed over a scar. The results and recommendations were discussed with the patient on the day of her appointment. In addition, a written report in lay terms, including density notification, was given to the patient. Patient information was entered into a reminder system with a target due date for the next mammogram. Narrative 11/15/2024 1:11 PM EDT PROCEDURE: Bilateral diagnostic mammogram with Digital Breast Tomosynthesis (DBT). REASON FOR EXAM: History of right lumpectomy in 2020 FAMILY HISTORY: Weak family history of breast cancer COMPARISON STUDY: [facility] 2023 through 2017 FINDINGS: Craniocaudal and mediolateral oblique images of both breasts were obtained in 2D and DBT modes. Synthesized views were reconstructed from DBT data. Breast density:There are scattered areas of fibroglandular density. Lumpectomy changes are stable. There is no evidence of dominant mass, architectural distortion, or suspicious calcifications. This examination was reviewed with the benefit of computer aided detection (CAD). Valentin Chaves MD IMG MAMMOGRAPHY ORDERABLES F inal Result * DXA bone density spine and hip (10/19/2021 11:00 AM EST) Anatomical Region Laterality Modality Bone Radiographic [place] ging 10/19/2021 11:0 0 AM EST Narrative 10/19/2021 6:44 PM EST PROCEDURE: Bone densitometry (DXA). REASON FOR EXAM: Postmenopausal, screening for osteoporosis RISK FACTORS: Estrogen deficiency COMPARISON STUDY: None available at this time. FINDINGS: Bone densitometry was performed using a Dispop unit. Sites measured included the spine, distal left forearm, and left hip. All 3 sites appear to be valid. Using L1-2, the bone mineral density of the spine is 1.502 g/cm2, corresponding to a T-score of 2.7 and a Z-score of 4.1. Using the left femur, the bone mineral density of the femoral neck is 1.006 g/cm2, corresponding to a T-score of -0.2 and a Z-score of 1.3. Using the distal left forearm, the bone mineral density of the one third radius is 0.893 g/cm2, corresponding to a T-score of 0.2 and a Z-score of 2.1. NOTE: T-score: standard deviation compared with peak bone mass of young adult mean. Z-score: standard deviation compared with age-matched mean. * Following the recommendations of the International Society of Bone Densitometry, classification of hip BMD is based on the lower of two T-scores; total hip or femoral neck. FINAL IMPRESSION: NORMAL: T-score at or above -1.0. RECOMMENDATIONS: UNIVERSAL GUIDELINES: 1. Adequate intake of calcium (at least 1200 mg/day). 2. Vitamin D supplementation (800 to 1000 IU/day) for individuals at risk of insufficiency. 3. Regular weight-bearing exercise. 4. Fall prevention. 5. Avoidance of tobacco and alcohol. Procedure Note Gustavo Landry MD - 12/14/2022 PROCEDURE: Bone densitometry (DXA). REASON FOR EXAM: Postmenopausal, screening for osteoporosis RISK FACTORS: Estrogen deficiency COMPARISON STUDY: None available at this time. FINDINGS: Bone densitometry was performed using a Dispop unit. Sites measured included the spine, distal left forearm, and left hip. All 3 sites appear to be valid. Using L1-2, the bone mineral density of the spine is 1.502 g/cm2, corresponding to a T-score of 2.7 and a Z-score of 4.1. Using the left femur, the bone mineral density of the femoral neck is 1.006 g/cm2, corresponding to a T-score of -0.2 and a Z-score of 1.3. Using the distal left forearm, the bone mineral density of the one third radius is 0.893 g/cm2, corresponding to a T-score of 0.2 and a Z-score of 2.1. NOTE: T-score: standard deviation compared with peak bone mass of young adult mean. Z-score: standard deviation compared with age-matched mean. * Following the recommendations of the International Society of Bone Densitometry, classification of hip BMD is based on the lower of two T-scores; total hip or femoral neck. FINAL IMPRESSION: NORMAL: T-score at or above -1.0. RECOMMENDATIONS: UNIVERSAL GUIDELINES: 1. Adequate intake of calcium (at least 1200 mg/day). 2. Vitamin D supplementation (800 to 1000 IU/day) for individuals at risk of insufficiency. 3. Regular weight-bearing exercise. 4. Fall prevention. 5. Avoidance of tobacco and alcohol. Gustavo Landry MD IMG DXA ORDERABLES Final Result from Last 3 Months or Most Recently Relevant to Health Maintenance Insurance [id number] (Home) [address] [id number] [facility] [employer] MAP Advance Directives For more information, please contact: [phone] * Full Code (Latest Code Status on File) Date Activated Date Inactivated Comments 02/23/2024 10:22 AM 02/24/2024 4:25 AM Care Teams Technical Administrative Assistant Relationship Specialty Start Date End Date Fidencio Walsh MD [address] [place] [address] [place] [address] PCP - General General Internal Medicine 07/15/22 Miranda Menjivar MD [address] [facility] [address] [place] [address] Referring Physician Cardiology 02/07/24 Kirsten Ku MD [facility] [address] [place] [address] Hematology and Oncology 02/12/25
--- OUTSIDE RECORDS SUMMARY | 2025-05-01 13:10 | XMS_ITS | Encounter Summary ---
Author Organization [employer] ([place], [place], [place], [place]) Address [address] [place] [address] Care Team Providers Care Systematic Theology Professor Name Role Phone Fidencio Walsh MD Primary Care Provider [phone] Miranda Menjivar MD Unavailable [phone] Kirsten Ku MD Unavailable [phone] Encounter Details Date Type Department Care Team (Late st Contact Info) Description 07/07/2021 Transcribed Document [facility] Family Medicine [address] [place] [address] ProviderNivia MD [address] [place] [address] Social History Tobacco Use Types Packs/Day Years Used Date Smoking Tobacco: Never Assessed Comments Unknown Sex and Gender Information Value Date Recorded Sex Assigned at Not on file Legal Sex Female 3:28 PM CDT Gender Identity Not on file Sexual Orientation Not on file documented as of this encounter Miscellaneous Notes * Cerner Conversion Note - Nivia ProviderMD - 07/07/2021 9:38 AM TRACK OILER [facility] Main OR IntraOp Summary Primary Physician: GISSEL CHAVES MD-SUR Finalized Date/Time: 07/07/21 10:17:20 Pt. Name: ALBA BENJAMIN D.O.B./Sex: 1950 Female Med Rec #: [id number] Physician: GISSEL CHAVES MD-SUR Financial #: [id number] Pt. Type: O Room/Bed: [facility] Admit/Disch: 07/07/21 06:02:00 - Institution: [facility] Case Attendance Entry 1 Entry 2 Entry 3 Case Attendee GISSEL CHAVES MORROW, ERIC, Patricia Houston MD-VAIBHAV Mutuel Teller Role Performed Surgeon/Proceduralist, Physician family law legal assistant Rotor Casting Machine Operator, First First Time In 07/07/21 09:17:00 07/07/21 09:17:00 07/07/21 09:17:00 Time Out 07/07/21 10:17:00 07/07/21 10:17:00 07/07/21 10:17:00 Procedure Breast Lumpectomy, Breast Lumpectomy, Breast Lumpectomy, Breast Biopsy FS Needle Breast Biopsy FS Needle Breast Biopsy FS Needle Localization Localization Localization Other Attendee Superficial Wound Closed By: Last Modified By: Pineda Wolff Shaffer, Andrea L, Shaffer, Andrea L, Rn-Traveler 07/07/21 Rn-Traveler 07/07/21 Rn-Traveler 07/07/21 10:17:05 10:17:05 10:17:05 Entry 4 Entry 5 Entry 6 Case Attendee VERONICA EDWARD, TERESA, Jesus, Jerman, Pineda Garland, EXECUTIVE CHAIRMAN OF THE BOARD-ANS Rn-Traveler Role Performed EXECUTIVE CHAIRMAN OF THE BOARD/Nurse Theatrical Dresser Scrub, First Tool Hardener, First Time In 07/07/21 09:17:00 07/07/21 09:17:00 07/07/21 09:17:00 Time Out 07/07/21 10:17:00 07/07/21 10:17:00 07/07/21 10:17:00 Procedure Breast Lumpectomy, Breast Lumpectomy, Breast Lumpectomy, Breast Biopsy FS Needle Breast Biopsy FS Needle Breast Biopsy FS Needle Localization Localization Localization Other Attendee Superficial Wound Closed By: Last Modified By: Pineda Wolff Shaffer, Andrea L, Shaffer, Andrea L, Rn-Traveler 07/07/21 Rn-Traveler 07/07/21 Rn-Traveler 07/07/21 10:17:18 10:17:05 10:17:05 [facility] Case Attendance Audit 07/07/21 10:17:18 Shaper Setter: [id number] Modifier: [id number] <+> Role Performed 4 <*> Procedure Breast Lumpectomy, Breast Biopsy FS Needle Localization 07/07/21 10:17:05 Shaper Setter: [id number] Modifier: [id number] 1 <+> Time In 1 <+> Time Out 1 <*> Procedure Breast Lumpectomy, Breast Biopsy FS Needle Localization 2 <+> Time In 2 <+> Time Out 2 <*> Procedure Breast Lumpectomy, Breast Biopsy FS Needle Localization 3 <+> Time In 3 <+> Time Out 3 <*> Procedure Breast Lumpectomy, Breast Biopsy FS Needle Localization 4 <+> Time In 4 <+> Time Out 4 <*> Procedure Breast Lumpectomy, Breast Biopsy FS Needle Localization 5 <+> Time In 5 <+> Time Out 5 <*> Procedure Breast Lumpectomy, Breast Biopsy FS Needle Localization 6 <+> Time In 6 <+> Time Out 6 <*> Procedure Breast Lumpectomy, Breast Biopsy FS Needle Localization [facility] Case Times Entry 1 Patient In Room Time 07/07/21 09:17:00 Out Room Time 07/07/21 10:17:00 Anesthesia Start Time 07/07/21 09:17:00 Stop Time 07/07/21 10:17:00 Anesthesia Ready 07/07/21 09:17:00 Surgery / Procedure Times Start Time 07/07/21 09:38:00 Stop Time 07/07/21 10:12:00 Last Modified By: Pineda Wolff Rn-Traveler 07/07/21 10:17:03 [facility] Case Times Audit 07/07/21 10:17:03 Shaper Setter: [id number] Modifier: [id number] <+> 1 Out Room Time <+> 1 Stop Time 07/07/21 10:12:07 Shaper Setter: [id number] Modifier: [id number] <+> 1 Stop Time [facility] Cautery Entry 1 ESU Identification Cautery Type Monopolar ESU ID Number [id number] ID Type Hospital Number Cautery Settings Cut Setting 30 Coag Setting 30 ESU Grounding Pad Ground Pad Type Adult Grounding Pad Site Right thigh Grounding Pad Pineda Wolff, Applied By Rn-Traveler Grounding Pad Site Intact Skin Condition Before Cautery Grounding Pad Site Unchanged Skin Condition After Cautery Last Modified By: Pineda Wolff Rn-Traveler 07/07/21 09:43:37 [facility] Communication Entry 1 Communication To Family/Significant other Communication By GISSEL CHAVES MD-VAIBHAV Last Modified By: Pineda Wolff Rn-Traveler 07/07/21 09:43:42 [facility] Counts Verification Entry 1 Procedure Breast Lumpectomy, Breast Biopsy FS Needle Localization Count Info Count Type Sponge, Sharps Counts Verification Baseline/pre-procedure Sequence Count Results Not Applicable Counts Performed By Count Performed By Patricia Mitchell, (Scrub) Mutuel Teller Count Performed By Pineda Wolff, (RN) Rn-Traveler Last Modified By: Pineda Wolff Rn-Traveler 07/07/21 09:43:59 [facility] Counts Final Entry 1 Procedure Breast Lumpectomy, Breast Biopsy FS Needle Localization Final Count Info Count Type Sponge, Sharps Counts Verification Skin Closure/end of Sequence procedure Count Results Correct, surgeon notified Counts Performed By Count Performed By Jerman Lee ST (Scrub) Count Performed By VERONICA EDWARD APRN, (RN) EXECUTIVE CHAIRMAN OF THE BOARD-ANS Last Modified By: Pineda Wolff Rn-Traveler 07/07/21 10:11:56 [facility] Counts Final Audit 07/07/21 10:11:56 Shaper Setter: [id number] Modifier: [id number] 1 <*> Procedure Breast Lumpectomy, Breast Biopsy FS Needle Localization 1 <*> Count Performed By (RN) Pienda Wolff Rn-Traveler [facility] Cultures and Spec Summary Entry 1 Cultrures and Specimens Specimen Ordered: Yes Test(s) Routine/Path-Lab, Requested/Final Other: Segment text Disposition Last Modified By: Pineda Wolff Rn-Traveler 07/07/21 09:44:45 General Comments: SPECIMEN SENT TO BREAST CENTER FIRST [facility] Departure from OR Entry 1 Integumentary Assessment Integumentary WDL Assessment WDL Transfer/Handoff Transfer to PACU Phase I Handoff Method Bedside/Face to face Post-op Transport Stretcher/Gurney Via Patient Transport Pineda Wolff, Accompanied by Rn-Traveler, VERONICA EDWARD APRN, EXECUTIVE CHAIRMAN OF THE BOARD-ANS Last Modified By: Pineda Wolff Rn-Traveler 07/07/21 09:44:56 [facility] Dressing and Packing Entry 1 Type Dressing Location BREAST, RIGHT Wound Dressing Item Skin Closure Glue Applied By ANYI MONAE PA Last Modified By: Pineda Wolff Rn-Traveler 07/07/21 09:45:03 [facility] Fire Risk Assessment Entry 1 Fire Info Surgical Site or 1- Yes Incision Above the Xyphoid Open O2 Source 0- No (Mask or Cannula) Available Ignition 1- Yes (ESU, Laser, Light Source) Fire Risk 2 Assessment Score Fire Score Fire Risk Yes Assessment Complete Fire Risk Pineda Wolff, Assessment Verified Rn-Traveler By Fire Risk 07/07/21 09:37:00 Assessment Verified Date/Time Fire Risk Standard Fire Yes Safety Precautions Followed Last Modified By: Pineda Wolff Rn-Traveler 07/07/21 09:45:10 [facility] General Case Active Directory Architect 1 Case Information OR OR 02 [facility] Case Level 1 Room Verified Yes Wound Class 1 - Clean Specialty General Anesthesia Type General ASA Class 3 Diagnosis 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 Postop Same As Preop No Postop Diagnosis SEE SURGEON'S OPERATIVE NOTE Wound Class Definitions Last Modified By: Pineda Wolff Rn-Traveler 07/07/21 09:46:34 [facility] General Case Data Audit 07/07/21 09:46:34 Shaper Setter: [id number] Modifier: [id number] 1 <*> Preop Diagnosis RIGHT BREAST CANCER [facility] Intraoperative Assessment Entry 1 Handoff Report SUZANNE ESPINOSA RN Received from Handoff Method Bedside/Face to face Valid History / Yes Physical in Chart Preoperative Yes Checklist Reviewed/Evaluated Allergies Reviewed Yes Patient is Latex No Sensitive Isolation Not applicable Precautions Noted Level of WDL Consciousness (WDL = Alert, Oriented to Person, Place, and Time) Skin Assessment Yes Verified Present Upon IVs Arrival to OR Last Modified By: Pineda Wolff Rn-Traveler 07/07/21 09:52:21 [facility] Intraoperative Assessment Audit 07/07/21 09:52:21 Shaper Setter: [id number] Modifier: [id number] 1 <+> Patient is Latex Sensitive 1 <+> Handoff Report Received from 1 <*> Handoff Method Other [facility] Intraoperative Equipment Entry 1 Type Monitoring Equipment Intraop Monitoring Electrocardiogram Three lead placement (ECG) Electrode Placement Blood Pressure Non-Invasive BP Device Source Antiembolic Devices Antiembolic Devices Sequential compression device, knee high Antiembolic Device Bilateral Location Scopes Photo/Video Documentation Photo No Video No Last Modified By: Pineda Wolff Rn-Traveler 07/07/21 09:46:48 [facility] Medication Admin Entry 1 Medication/Irrigant Marcaine 0.5% w/ epinephrine 1:200,000 30ml vial - [id number] Time Administered 07/07/21 09:39:00 Route of LOCAL INJECTION Administration Dose Dose 10 Unit of Measure ml Volume 10 Administered By GISSEL CHAVES MD-SUR Procedure Irrigation Last Modified By: Pineda Wolff Rn-Traveler 07/07/21 10:12:57 [facility] Medication Admin Audit 07/07/21 10:12:57 Shaper Setter: [id number] Modifier: [id number] 1 <*> Medication/Irrigant Marcaine 0.5% w/ epinephrine 1:200,000 30ml vial - [id number] 1 <*> Volume QS 07/07/21 10:02:50 Shaper Setter: [id number] Modifier: [id number] 1 <*> Medication/Irrigant Marcaine 0.5% w/ epinephrine 1:200,000 30ml vial - [id number] 1 <+> Dose 1 <+> Unit of Measure [facility] Patient Positioning Entry 1 Procedure Breast Biopsy FS Needle Localization Body Position Supine Left Arm Position Secured on padded arm board Right Arm Position Secured on padded arm board Left Leg Position Uncrossed, parallel Right Leg Position Uncrossed, parallel Feet Uncrossed Yes Pressure Points Yes Checked Positioning Devices Arm Board, Safety Strap, Thighs, Pillows, Safety Strap, Arm(s) Positioned By Pineda Wolff Rn-Justino, Patricia Mitchell Scrub Tech, GISSEL CHAVES MD-VAIBHAV, ANYI MONAE PA Position Verified Positioning Yes Verified by Anesthesia Positioning Yes Verified by Surgeon Last Modified By: Pineda Wolff Rn-Traveler 07/07/21 09:47:17 [facility] Sign In Entry 1 Patient, Site, Yes Procedure Identified Surgical Consent Yes Confirmed Relevant Surgical Yes Documents Available Surgical Site Yes Marked by person performing procedure Anesthesia Machine Yes Check Completed Medication Checks Yes Completed Allergies Yes Airway Difficult No Airway/Aspiration Risk Difficult Yes Airway/Aspiration Intervention Equipment Available Blood Loss Risk No Blood Loss Yes Intervention Equipment Prepared and Ready Blood Identifiers Not applicable Verified Per Policy Hypothermia Risk Yes Warming Measures Yes Taken Last Modified By: Pineda Wolff Rn-Traveler 07/07/21 09:47:23 [facility] Intra Op Sign Out Entry 1 RN Confirmation Surgical Yes Procedure(s) Identified Instrument, Sponge Yes and Sharps Counts Correct/Documented Equipment Problems N/A Documented Specimen Labeled Yes Correctly Urinary Catheter N/A Documented in IView Wound Yes classification reviewed, verified and updated post case in both the General Case Data and Procedure segments Edwards Patient Yes Recovery Concerns Reviewed with Anesthesia Provider, Surgeon and RN Edwards Patient Yes Management Concerns Reviewed with Anesthesia Provider, Surgeon and RN Safety Checklist Yes Elements Complete? RN Sign Out Pineda Wolff, Signature Rn-Traveler RN Sign Out 07/07/21 10:16:00 Signature Date/Time Plan of Care Outcome - Fire Risk OUTCOME STATEMENT: Goal met Patient is free from injury related to surgical fire Plan of Care Outcome - Pt Positioning OUTCOME STATEMENT: Goal met Absence of signs and symptoms of positioning injury. Plan of Care Outcome - Skin Prep OUTCOME STATEMENT: Goal met Intraoperative care is consistent with measures to prevent infection Plan of Care Outcome - Xray/Images OUTCOME STATEMENT: N/A Absence of observable signs or symptoms of radiation injury Plan of Care Outcome - Counts OUTCOME STATEMENT: Goal met Absence of signs and symptoms of injury related to extraneous objects Last Modified By: Pineda Wolff Rn-Traveler 07/07/21 10:16:17 [facility] Intra Op Sign Out Audit 07/07/21 10:16:17 Shaper Setter: [id number] Modifier: [id number] <+> 1 RN Sign Out Signature Date/Time [facility] Skin Prep Entry 1 Procedure Breast Lumpectomy, Breast Biopsy FS Needle Localization Prescribed Yes Pre-Surgical Prep Completed Prep Area CHEST SHEET TO SHEET, NECK TO MID ABDOMEN Intraop Prep Integumentary WDL Assessment WDL Prep Agents Chlorhexadine gluconate Prep by Pineda Wolff Rn-Traveler Hair Removal Methods No hair removal performed Last Modified By: Pineda Wolff Rn-Traveler 07/07/21 09:47:40 [facility] Surgical Procedures Entry 1 Entry 2 Procedure Breast Lumpectomy Breast Biopsy FS Needle Localization Modifiers Additional RIGHT BREAST LUMPECTOMY Procedure WTIH NEEDLE LOCALIZATION Description Primary Procedure Yes No Primary Surgeon GISSEL CHAVES, GISSEL CHAVES MD-VAIBHAV SAUNDERS-VAIBHAV Start 07/07/21 09:38:00 07/07/21 09:38:00 Stop 07/07/21 10:12:00 07/07/21 10:12:00 Physician States Cecum Reached Anesthesia Type General General Specialty General General Wound Class 1 - Clean 1 - Clean Last Modified By: Pineda Wolff Shaffer, Andrea L, Rn-Traveler 07/07/21 Rn-Traveler 07/07/21 10:12:12 10:12:12 [facility] Surgical Procedures Audit 07/07/21 10:12:12 Shaper Setter: [id number] Modifier: [id number] 1 <*> Procedure Breast Lumpectomy 1 <+> Stop <+> 2 Stop [facility] Time Out Entry 1 Procedure to be Breast Lumpectomy, Performed Breast Biopsy FS Needle Localization Time Out Time Out Pause Time 07/07/21 09:37:00 All activity Yes suspended (unless life threatening emergency) Team Verbally Correct patient Confirms Information identity, Correct side and site are marked, Consent form is present and accurate, Agreement on the procedure to be done, Correct patient position, Confirm antibiotics have been administered, Confirm the skin prep has dried, Performed in location of procedure after prepped/draped Time Out Comment ANCEF 2GM Antibiotic Yes Prophylaxis Administered Or In Progress Within the Last 60 Minutes Beta Cornelia Yes Administered Venous Yes Thromboembolism Prophylaxis Required Anticipated Critical Events Surgeon None expected Anesthesia Provider None expected Essential Imaging N/A Labeled and Displayed Last Modified By: Pineda Wolff Rn-Traveler 07/07/21 09:45:44 Case Comments <None> Finalized By: Pineda Wolff Rn-Traveler Document Signatures Signed By: Pineda Wolff Rn-Traveler 07/07/21 10:17 documented in this encounter Plan of Treatment Upcoming Encounters Date Type Department Care Team (Late st Contact Info) Description 11/12/2025 1:00 PM EDT Office Visit [facility] Cardiology - [address] [place] [address] Alicia Cruz MD [address] [facility] [address] [place], [place] [address] 11/21/2025 11:00 AM EDT Appointment [facility] [address] [facility] [address] [place] [address] Tonja Green PA-C [address] [facility] [address] [place] [address] 11/21/2025 12:00 PM EDT Appointment [facility] [address] [facility] [address] [place] [address] Gissel Chaves MD [address] [facility] [address] [place] [address] 11/21/2025 1:00 PM EDT Office Visit [facility] [address] [facility] [address] [place] [address] Gissel Chaves MD [address] [facility] [address] [place] [address] 11/21/2025 3:00 PM EDT Office Visit [facility] - [facility] [address] [place] [address] Kirsten Ku MD [address] [facility] [address] [place] [address] documented as of this encounter Visit Diagnoses Not on filedocumented in this encounter Care Teams Systematic Theology Professor Relationship Specialty Start Date End Date Nico, Fidencio Chowdhury MD [address] [place] [address] PCP - General General Internal Medicine 07/15/22 Miranda Menjivar MD [address] [facility] [address] [place], [place] [id number] Referring Physician Cardiology 02/07/24 Kirsten Ku MD [address] [facility] [address] [place] [address] Hematology and Oncology 02/12/25 documented as of this encounter
--- OUTSIDE RECORDS SUMMARY | 2025-05-01 13:10 | XMS_ITS | Clinical Summary ---
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 Active aspirin 81 MG chewable tablet Chew 1 tablet Daily. Active Simbrinza 1-0.2 % suspension 023 Active timolol (TIMOPTIC) 0.5 % ophthalmic solution Administer 1 drop to both eyes 2 (Two) Times a Day. 023 Active dorzolamide-timol ol (COSOPT) 2-0.5 % ophthalmic solution INSTILL 1 DROP INTO BOTH EYES 2 TIMES A DAY 024 Active Diclofenac Sodium (VOLTAREN) 1 % gel gelIndications:Ce rvicalgia Apply 4 g topically to the appropriate area as directed 2 (Two) Times a Day As Needed (musculoskelet al pain). 150 g 1 024 Active amitriptyline (ELAVIL) 50 MG tablet TAKE 1 TABLET BY MOUTH EVERY NIGHT 90 tablet 1 025 Active FeroSul 325 (65 Fe) MG tabletIndications :Iron deficiency anemia, unspecified iron deficiency anemia type Take 1 tablet by mouth Daily With Breakfast. 90 tablet 3 025 Active losartan (COZAAR) 50 MG tabletIndications :Essential hypertension TAKE 1 TABLET BY MOUTH DAILY 30 tablet 3 025 Active rosuvastatin (CRESTOR) 20 MG tablet TAKE 1 TABLET BY MOUTH EVERY EVENING 90 tablet 1 025 Active fluticasone (FLONASE) 50 MCG/ACT nasal sprayIndications: Seasonal allergic rhinitis due to pollen ADMINISTER 2 SPRAYS INTO THE NOSTRIL(S) DAILY DIRECTED BY PROVIDER 16 g 3 025 Active cetirizine (zyrTEC) 10 MG tabletIndications :Seasonal allergic rhinitis due to pollen TAKE ONE TABLET BY MOUTH ONCE DAILY 30 tablet 3 025 Active empagliflozin (Jardiance) 10 MG tablet tabletIndications :Stage 3a chronic kidney disease,Microalbu minuria Take 1 tablet by mouth Daily. 30 tablet 3 025 Active levothyroxine (SYNTHROID, LEVOTHROID) 88 MCG tabletIndications :Acquired hypothyroidism Take 1 tablet by mouth Daily. 90 tablet 025 Active montelukast (SINGULAIR) 10 MG tabletIndications :Seasonal allergic rhinitis due to pollen TAKE 1 TABLET BY MOUTH EVERY NIGHT 30 tablet 1 025 Active carvedilol (COREG) 12.5 MG tablet Take 1 tablet by mouth 2 (Two) Times a Day With Meals. 30 tablet 2 025 Active coenzyme Q10 100 MG capsule Take 1 capsule by mouth Daily. 30 capsule 2 025 Active coenzyme Q10 100 MG capsule Take 1 capsule by mouth Daily. 2024 Discontinued(R eorder) carvedilol (COREG) 12.5 MG tablet Take 1 tablet by mouth 2 (Two) Times a Day With Meals. 2024 Discontinued(R eorder) montelukast (SINGULAIR) 10 MG tabletIndications :Seasonal allergic rhinitis due to pollen TAKE 1 TABLET BY MOUTH EVERY NIGHT 30 tablet 1 025 2024 Discontinued levothyroxine (SYNTHROID, LEVOTHROID) 88 MCG tabletIndications :Acquired hypothyroidism TAKE 1 TABLET BY MOUTH DAILY 90 tablet 025 2024 Discontinued(R eorder) Active Problems Problem Noted Date Diagnosed Date Vaginal bleeding 02/18/2025 Assessment & Plan (02/18/2025 3:10 PM EDT): Newly discussed and diagnosed 02/18/2025 the pattern with is not urinary but some scant vaginal bleeding is noticed typically in the morning on her underwear, without any urinary pain, no reported vaginal pain. Otherwise bowel pattern has been good. I discussed potential benefit of a vaginal check and possibly transvaginal ultrasound but she would prefer to be seen by gynecology and I will refer her to gynecology at [place] location per her preference, appreciate that input. Cervicalgia 08/20/2024 Assessment & Plan (08/20/2024 11:06 AM EST): New onset discussion 08/20/2024 without clear trigger but possibly posture, gradually on and off the last few months with no radiculopathy type pattern. More aches and pains in the muscles of the lower neck bilaterally in the trapezius. Recommend heating pad, light stretching, I have added diclofenac 1% gel to get some additional anti-inflammatory benefit, and to minimize NSAID use orally and systemically as she has modest kidney dysfunction. If this is not improving we could consider x-ray imaging and/or pursuit of physical therapy in the future. Orders: Diclofenac Sodium (VOLTAREN) 1 % gel gel; Apply 4 g topically to the appropriate area as directed 2 (Two) Times a Day As Needed (musculoskeletal pain). Iron deficiency anemia 03/08/2024 Assessment & Plan (04/04/2025 1:30 PM EDT): Diagnosed with recent blood work 02/23/2024 in anticipation of that days cardiac catheterization with hemoglobin 8.4 and hematocrit 29.8 with most recent prior 02/08/2023 at 11.2 and 36.8. Additional iron level obtained which was low at 14, TIBC was within normal limits but percent saturation was low at 4%. Consistent with iron deficiency anemia. She was initiated on ferrous sulfate 325 mg daily, with vitamin C coadministered to help increase absorption. There are no clear signs of bleeding. Recheck of iron testing 03/08/2024 revealed consistent pattern of iron deficiency anemia, she has subsequently had through [facility] Wing a 06/04/2024 colonoscopy with one [...] anemia as well. Most recent follow-up with [facility] on 03/22/2025. Assessment & Plan (02/18/2025 3:09 PM EDT): Diagnosed with recent blood work 02/23/2024 in anticipation of that days cardiac catheterization with hemoglobin 8.4 and hematocrit 29.8 with most recent prior 02/08/2023 at 11.2 and 36.8. Additional iron level obtained which was low at 14, TIBC was within normal limits but percent saturation was low at 4%. Consistent with iron deficiency anemia. She was initiated on ferrous sulfate 325 mg daily, with vitamin C coadministered to help increase absorption. There are no clear signs of bleeding. Recheck of iron testing 03/08/2024 revealed consistent pattern of iron deficiency anemia, she has subsequently had through [facility] Wing a 06/04/2024 colonoscopy with one [...] both normalized with normal iron studies and ferritin. She is on anastrozole which has some potential risk of causing anemia as well, she will follow-up with [facility] on 03/22/2025. Assessment & Plan (08/20/2024 11:06 AM EST): Diagnosed with recent blood work 02/23/2024 in anticipation of that days cardiac catheterization with hemoglobin 8.4 and hematocrit 29.8 with most recent prior 02/08/2023 at 11.2 and 36.8. Additional iron level obtained which was low at 14, TIBC was within normal limits but percent saturation was low at 4%. Consistent with iron deficiency anemia. She was initiated on ferrous sulfate 325 mg daily, with vitamin C coadministered to help increase absorption. There are no clear signs of bleeding. Recheck of iron testing 03/08/2024 revealed consistent pattern of iron deficiency anemia, she has subsequently had through [facility] Wing a 06/04/2024 colonoscopy with one 8 mm polyp, otherwise negative and no signs of bleeding and an EGD reported 06/04/2024 as negative as well. Subsequent pill endoscopy completed mid July 2024 with pending result. She notably has follow-up 08/24/2024 with hematology/oncology related history of breast DCIS and is on anastrozole which has some potential risk of causing anemia as well, appreciate their further input in that regard. Assessment & Plan (03/08/2024 10:37 AM EDT): Newly diagnosed with recent blood work 02/23/2024 in anticipation of that days cardiac catheterization with hemoglobin 8.4 and hematocrit 29.8 with most recent prior 02/08/2023 at 11.2 and 36.8. Additional iron level obtained which was low at 14, TIBC was within normal limits but percent saturation was low at 4%. Consistent with iron deficiency anemia. She has been initiated on ferrous sulfate 325 mg daily although I recommended adding vitamin C coadministered to help increase absorption. There are no clear signs of bleeding, no bleeding from the gums or lips, no easy bruising, no bleeding from the urine, no vaginal bleeding, and she does not report any change in her bowels, they are not dark tarry, no visible blood. I would like to recheck blood work now 2 weeks later to recheck CBC and with additional repeat iron studies and I would also like to check folate and B12 in addition to a peripheral blood smear. Management per results but consideration of then speaking with Dr. Calero's office, [facility] further is potentially planned colonoscopy to consider reassessing and adding EGD to that assessment. Furthermore she follows up with hematology/oncology related history of breast DCIS and is on anastrozole which has some potential risk of causing anemia as well, pending follow-up with them on 05/17/2024. Stage 3a chronic kidney disease 03/08/2024 Assessment & Plan (04/04/2025 1:32 PM EDT): Diagnosed with recent blood work in preparation of cardiac catheterization at [facility] 02/23/2024 with creatinine was 1.49 and GFR 37, where the cardiac catheterization was canceled by Dr. Menjivar. Follow-up by myself 03/08/2024 showed notable improvement with creatinine 1.08 and GFR 54, subsequent to that through [facility] hematology on 08/24/2024 with creatinine 1.0. Prior investigations include 02/08/2023 with creatinine 1.00 and GFR 60. Recent hematology labs on 03/22/2025 included CMP which had a creatinine 1.4 and a GFR of 40 which is similar compared to previous pattern nightly increase. She thinks he may not been drinking as well. As such she has been hydrating better, continue unchanged and caution NSAIDs or other renal toxic medications. I will recheck her BMP today to assess further, as well as a UACR to see if she is having any kidney protein loss where she might benefit from consideration of SGLT2 inhibitors in addition to her losartan 50 mg daily which does give renal benefit. Assessment & Plan (02/18/2025 3:09 PM EDT): Diagnosed with recent blood work in preparation of cardiac catheterization at [facility] 02/23/2024 with creatinine was 1.49 and GFR 37, where the cardiac catheterization was canceled by Dr. Menjivar. Follow-up by myself 03/08/2024 showed notable improvement with creatinine 1.08 and GFR 54, subsequent to that through [facility] on 08/24/2024 with creatinine 1.0. Prior investigations include 02/08/2023 with creatinine 1.00 and GFR 60. Caution NSAIDs or other renal toxic medications. Reinforced importance of continued good hydration. Recheck with blood work when she follows up in May 2025. Assessment & Plan (08/20/2024 11:06 AM EST): Diagnosed with recent blood work in preparation of cardiac catheterization at [facility] 02/23/2024 with creatinine was 1.49 and GFR 37, where the cardiac catheterization was canceled by Dr. Menjivar. Follow-up by myself 03/08/2024 showed notable improvement with creatinine 1.08 and GFR 54. Prior investigations include 02/08/2023 with creatinine 1.00 and GFR 60. Caution NSAIDs or other renal toxic medications. Reinforced importance of continued good hydration. This improvement she should be an appropriate candidate to not pursue cardiac catheterization which is still pending as of 08/20/2024. Assessment & Plan (03/08/2024 10:38 AM EDT): Newly diagnosed with recent blood work in preparation of cardiac catheterization at [facility] 02/23/2024 with creatinine was 1.49 and GFR 37, where the cardiac catheterization was canceled by Dr. Menjivar. Compared to most recent prior to that 02/08/2023 with creatinine 1.00 and GFR 60. Unclear timing in the interim although in retrospect it sounds like she was taking very frequent naproxen which could have been an aggravating factor, with some questions of hydration as well. Since then she has stopped naproxen, using Tylenol for any pain pattern. I continue to recommend avoidance of NSAIDs and any renal toxic medication. She has been hydrating well. Recheck kidney function with blood work today 03/08/2024 with management per result. Nonrheumatic aortic valve stenosis 03/08/2024 Assessment & Plan (08/20/2024 11:06 AM EST): Diagnosis of mild aortic stenosis with 01/19/2024 echocardiogram through cardiology, consistent with systolic ejection murmur. Assessment & Plan (03/08/2024 10:42 AM EDT): Diagnosis of mild aortic stenosis with 01/19/2024 echocardiogram through cardiology, consistent with systolic ejection murmur. Left hip pain 10/11/2023 Assessment & Plan (01/31/2024 5:08 PM EDT): As evaluated 10/11/2023, a month or so of left lateral hip pain where she seemed to wake up with it, on exam most consistent with a pattern of trochanteric bursitis with some shooting pain down the lateral hip but with her comorbid back pain I feel it is a little difficult to fully diagnose and exclude in her hip pathology. 10/11/2023 x-ray of the left hip with arthritic type changes but no acute process, with plan to pursue physical therapy but never completed. It is actually doing better at this time the patient declines need for further treatment. Continue heating pad, light stretching, avoidance of aggravating activities. Assessment & Plan (10/31/2023 1:47 PM EST): As evaluated 10/11/2023, a month or so of left lateral hip pain where she seemed to wake up with it, on exam most consistent with a pattern of trochanteric bursitis with some shooting pain down the lateral hip but with her comorbid back pain I feel it is a little difficult to fully diagnose and exclude in her hip pathology. 10/11/2023 x-ray of the left hip with arthritic type changes but no acute process, as such initiation of physical therapy to evaluate and treat which patient still needs to schedule. Continue heating pad, light stretching, avoidance of aggravating activities. Assessment & Plan (10/11/2023 5:43 PM EST): A month or so of left lateral hip pain where she seemed to wake up with it, on exam most consistent with a pattern of trochanteric bursitis with some shooting pain down the lateral hip but with her comorbid back pain I feel it is a little difficult to fully diagnose and exclude in her hip pathology, such I would like to obtain x- ray of the left hip to assess for contributing findings for any additional pain. If reassuring plan physical therapy to evaluate and treat. If recurrent hip pain most with trochanteric bursitis initiate prednisone 10 mg tablet 3 tablets daily x 5 days, recommend heating pad, light stretching, and as noted above likely pursuing physical therapy to evaluate and treat. Prediabetes 08/02/2023 Assessment & Plan (04/04/2025 1:31 PM EDT): Diagnosis with hemoglobin A1c of 5.7% with [...] A1c she follows up in May 2025 Assessment & Plan (02/18/2025 3:07 PM EDT): Diagnosis with hemoglobin A1c of 5.7% with 02/08/2023 blood work. Hemoglobin A1c slightly increased to 5.6% today on 02/18/2025, compared to previous 5.5% on 08/20/2024, previously improved with dietary changes today on 01/31/2024 at 5.5%, previous 6.3%, 5.7%, and 5.7% at diagnosis. No indication for medication at this time. She is aware of increased thirst or urination pattern is a sign of potential progression to diabetes. Continue healthy diet, exercise, weight loss. Monitor hemoglobin A1c she follows up in 4 months. Assessment & Plan (08/20/2024 11:06 AM EST): Diagnosis with hemoglobin A1c of 5.7% with 02/08/2023 blood work. Hemoglobin A1c continues stable and improved at 5.5% on 08/20/2024, previously improved with dietary changes today on 01/31/2024 at 5.5%, previous 6.3%, 5.7%, and 5.7% at diagnosis. No indication for medication at this time. She is aware of increased thirst or urination pattern is a sign of potential progression to diabetes. Continue healthy diet, exercise, weight loss. Monitor hemoglobin A1c in 3 to 6 months. Orders: POC Glycosylated Hemoglobin (Hb A1C) POC Glucose, Blood Assessment & Plan (03/08/2024 10:37 AM EDT): Diagnosis with hemoglobin A1c of 5.7% with 02/08/2023 blood work. Hemoglobin A1c notably improved with dietary changes today on 01/31/2024 at 5.5%, previous 6.3%, 5.7%, and 5.7% at diagnosis. No indication for medication at this time, with modest worsening I would like to follow-up in 3 months time to reassess. She is aware of increased thirst or urination pattern is a sign of potential progression to diabetes. Continue healthy diet, exercise, weight loss. Recheck hemoglobin A1c when she follows up May 2020 for wellness visit. Assessment & Plan (01/31/2024 5:09 PM EDT): Diagnosis with hemoglobin A1c of 5.7% with 02/08/2023 blood work. Hemoglobin A1c notably improved with dietary changes today on 01/31/2024 at 5.5%, previous 6.3%, 5.7%, and 5.7% at diagnosis. No indication for medication at this time, with modest worsening I would like to follow-up in 3 months time to reassess. She is aware of increased thirst or urination pattern is a sign of potential progression to diabetes. Continue healthy diet, exercise, weight loss. Assessment & Plan (10/31/2023 1:48 PM EST): Diagnosis with hemoglobin A1c of 5.7% with 02/08/2023 blood work. Recheck today worsened to 6.3% compared to previous 5.7%, and 5.7% at diagnosis. No indication for medication at this time, with modest worsening I would like to follow-up in 3 months time to reassess. She is aware of increased thirst or urination pattern is a sign of potential progression to diabetes. Continue healthy diet, exercise, weight loss. Assessment & Plan (10/11/2023 5:45 PM EST): diagnosis with hemoglobin A1c of 5.7% with 02/08/2023 blood work. Recheck today 08/03/2023 with hemoglobin A1c stable at 5.7%. No indication for medication at this time. She is aware of increased thirst or urination pattern is a sign of potential progression to diabetes. Caution with prednisone dosing with trochanteric bursitis on 10/11/2023 that her sugars could elevate, as such caution increased urinary or thirst pattern. Continue healthy diet, exercise, weight loss. Assessment & Plan (08/02/2023 4:24 PM EST): New diagnosis with hemoglobin A1c of 5.7% with 02/08/2023 blood work. Recheck today 08/03/2023 with hemoglobin A1c stable at 5.7%. No indication for medication at this time. She is aware of increased thirst or urination pattern is a sign of potential progression to diabetes. Continue healthy diet, exercise, weight loss. Colon cancer screening 08/02/2023 Assessment & Plan (08/02/2023 4:23 PM EST): Colonoscopy 06/04/[address] Mendez with 5-year follow-up recommended, we will schedule as she is due at this time. Stress response 12/27/2022 Assessment & Plan (12/27/2022 2:14 PM EDT): Patient experienced the of her brother who she cared for in her home, occurring about a month ago. Still some understandable stressors related that, but no SI/HI. Some associated anxiety which she does not feel this is problematic enough she wants any medicine, she is making efforts to communicate well, be active and she feels she is overall doing better. She will advise any further concerns. Routine general medical [facility] 08/09/2022 Assessment & Plan (08/20/2024 11:06 AM EST): Last full screening blood work 03/08/2024, monitor yearly. Notable negative HIV and hepatitis C virus screening 02/08/2023. Colonoscopy 06/04/[address] Mendez with one sigmoid polyp, five-year follow up completed with Dr. Calero's 06/04/2024 with one 8 mm polyp, pathology determine if 3 or 5-year follow-up. Normal Pap smear with negative HPV testing 05/05/2018, 5-year follow-up will be due April 2023, she continues to decline at this time. Mammogram normal 10/12/2019, fall 2020 mammogram through [facility] with abnormality resulting in breast biopsy of the right breast which was reassuring with follow-up 07/15/2022 normal with 12-month recommendation, last normal follow-up on 11/10/2023 with yearly follow-up recommended. Vaccinations include verification of pneumococcal 23 valent vaccine on 06/05/2014, Zostavax on 06/05/2014, both at [facility], pneumococcal 13 valent vaccine 06/04/2015 with previous physician. Pneumococcal 20 valent vaccine given 08/09/2022. TDaP vaccine 05/05/2018. Recommending 2 part shingles vaccine, patient will consider. High-dose flu vaccine up-to-date. Assessment & Plan (08/02/2023 4:29 PM EST): Colonoscopy 06/04/[address] Mendez with one sigmoid polyp, five-year follow up scheduled on 08/03/2023. Normal Pap smear with negative HPV testing 05/05/2018, 5- year follow-up will be due April 2023, she declines today but will consider at physical next year. Mammogram normal 10/12/2019, fall 2020 mammogram through [facility] with abnormality resulting in breast biopsy of the right breast which was reassuring with follow-up 07/15/2022 normal with 12-month recommendation, patient still needs to schedule. Vaccinations include verification of pneumococcal 23 valent vaccine on 06/05/2014, Zostavax on 06/05/2014, both at [facility], pneumococcal 13 valent vaccine 06/04/2015 with previous physician. Pneumococcal 20 valent vaccine given 08/09/2022. TDaP vaccine 05/05/2018. Recommending 2 part shingles vaccine, patient will consider. High-dose flu vaccine up-to-date. Last complete blood work 02/08/2023, monitor yearly. Assessment & Plan (08/09/2022 10:52 AM EST): Colonoscopy 06/04/[address] Mendez with one sigmoid polyp, five-year follow up recommended. Normal Pap smear with negative HPV testing 05/05/2018, 5-year follow- up will be due April 2023, which would represent her final if negative. Mammogram normal 10/12/2019, fall 2020 mammogram through [facility] with abnormality resulting in breast biopsy of the right breast which was reassuring with follow- up 07/15/2022 normal with 12-month recommendation for next follow-up. Vaccinations include verification of pneumococcal 23 valent vaccine on 06/05/2014, Zostavax on 06/05/2014, both at [facility] in [place], pneumococcal 13 valent vaccine 06/04/2015 with previous physician. Pneumococcal 20 valent vaccine given 08/09/2022. TDaP vaccine 05/05/2018. Recommending 2 part shingles vaccine, patient will consider. High-dose flu vaccine given yearly. Last complete blood work 11/23/2021 including fasting CBC, CMP, UA, lipid panel, TSH, free T4, vitamin D 25-hydroxy level, hemoglobin A1c. Need for vaccination 08/09/2022 Coronary artery disease invo lving coronary bypass graft of [place] heart without angina pectoris 08/09/2022 Assessment & Plan (04/04/2025 1:28 PM EDT): Reported history of 3 vessel bypass grafting in 2011, performed in [place]. Previously she had seen Dr. Calderon, form stripper in [place]. She saw Dr. Womack, who had a non-concerning stress echocardiogram 03/30/2018, as clearance for colonoscopy. She switched to Dr. Alicia Cruz with appointment 01/13/2024 where she had open he had a stress echocardiogram which had some potentially concerning component where she was referred to rn cardiac Dr. Menjivar, with recommendation for cardiac catheterization [...] new symptoms of concern as of 04/04/2025 Assessment & Plan (02/18/2025 3:04 PM EDT): Reported history of 3 vessel bypass grafting in 2011, performed in [place]. Previously she had seen Dr. Calderon, form stripper in [place]. She saw Dr. Womack, who had a non-concerning stress echocardiogram 03/30/2018, as clearance for colonoscopy. She switched to Dr. Alciia Cruz with appointment 01/13/2024 where she had open he had a stress echocardiogram which had some potentially concerning component where she was referred to rn cardiac Dr. Menjivar, with recommendation for cardiac catheterization [...] with stability and 1 year follow-up recommended. Assessment & Plan (08/20/2024 11:06 AM EST): Reported history of 3 vessel bypass grafting in 2011, performed in [place]. Previously she had seen Dr. Calderon, form stripper in [place]. She saw Dr. Womack, who had a non-concerning stress echocardiogram 03/30/2018, as clearance for colonoscopy. She switched to Dr. Alicia Cruz with appointment 01/13/2024 where she had open he had a stress echocardiogram which had some potentially concerning component where she was referred to rn cardiac Dr. Menjivar, with recommendation for cardiac catheterization [...] compared to 06/12/2020, 05/07/2019. Keep follow-up with cardiology. Assessment & Plan (03/08/2024 10:35 AM EDT): Reported history of 3 vessel bypass grafting in 2011, performed in [place]. Previously she had seen Dr. Calderon, form stripper in [place]. She saw Dr. Womack, who had a non-concerning stress echocardiogram 03/30/2018, as clearance for colonoscopy. She switched to Dr. Alicia Cruz with most recent appointment 01/13/2024 where she had open he had a stress echocardiogram which had some potentially concerning component where she was referred to rn cardiac Dr. Menjivar, with recommendation for cardiac catheterization which was planned and set up for 02/23/2024 but with kidney dysfunction and new anemia, it was canceled. She takes an aspirin 81 mg tablet daily, Coreg 12.5 twice daily, Crestor 20 mg daily, losartan 50 mg daily. EKG 08/02/2023 without concern, no change compared to 06/12/2020, 05/07/2019. Keep follow-up with cardiology. Assessment & Plan (01/31/2024 5:02 PM EDT): Reported history of 3 vessel bypass grafting in 2011, performed in [place]. Previously she had seen Dr. Calderon, form stripper in [place]. She saw Dr. Womack, who had a non-concerning stress echocardiogram 03/30/2018, as clearance for colonoscopy. She switched to Dr. Alicia Cruz with most recent appointment 01/13/2024 where she had open he had a stress echocardiogram which had some potentially concerning component where she has been referred to rn cardiac Dr. Menjivar, recommend importance of keeping that appointment. She takes an aspirin 81 mg tablet daily, Coreg 12.5 twice daily, Crestor 20 mg daily, losartan 50 mg daily. EKG 08/02/2023 without concern, no change compared to 06/12/2020, 05/07/2019. Keep follow-up with cardiology. Assessment & Plan (10/31/2023 1:45 PM EST): Reported history of 3 vessel bypass grafting in 2011, performed in [place]. Previously she had seen Dr. Calderon, form stripper in [place]. She saw Dr. Womack, who had a non-concerning stress echocardiogram 03/30/2018, as clearance for colonoscopy, but due to some office staff issue she switched to Dr. Alicia Cruz with most recent appointment late 2021 without changes, follow-up appointment pending 04/27/2024. She takes an aspirin 81 mg tablet daily, Coreg 12.5 twice daily, atorvastatin 40 mg daily for cardiovascular risk benefit switch to Crestor 20 mg daily preparation preference 11/19/2021. Previous attempt at on 02/02/2018 losartan 25 mg daily, not tolerated due to fatigue, though I reattempt later has been tolerated and she is at 50 mg dosing. EKG 08/02/2023 without concern, no change compared to 06/12/2020, 05/07/2019. No new symptoms of concern including no chest pain, palpitations or shortness of breath. Advise concerns. Assessment & Plan (08/02/2023 2:08 PM EST): Reported history of 3 vessel bypass grafting in 2011, performed in [place]. Previously she had seen Dr. Calderon, form stripper in [place]. She saw Dr. Womack, who had a non-concerning stress echocardiogram 03/30/2018, as clearance for colonoscopy, but due to some office staff issue she switched to Dr. Alicia Cruz with most recent appointment late 2021 without changes, follow-up appointment pending 09/08/2023. She takes an aspirin 81 mg tablet daily, Coreg 12.5 twice daily, atorvastatin 40 mg daily for cardiovascular risk benefit switch to Crestor 20 mg daily preparation preference 11/19/2021. Attempt to add 02/02/2018 losartan 25 mg daily, not tolerated due to fatigue. She declines trying additional medication, but we could reconsider a different LEVAR inhibitor or angiotensin receptor yari in future. EKG without concern 06/12/2020, unchanged compared to 05/07/2019. No new symptoms of concern including no chest pain, palpitations or shortness of breath. Advise concerns. Assessment & Plan (02/08/2023 5:28 PM EDT): Reported history of 3 vessel bypass grafting in 2011, performed in [place]. Previously she had seen Dr. Calderon, form stripper in [place]. She saw Dr. Womack, who had a non-concerning stress echocardiogram 03/30/2018, as clearance for colonoscopy, but due to some office staff issue she switched to Dr. Alicia Cruz with most recent appointment late 2021 without changes, follow-up appointment pending 09/08/2023. She takes an aspirin 81 mg tablet daily, Coreg 12.5 twice daily, atorvastatin 40 mg daily for cardiovascular risk benefit switch to Crestor 20 mg daily preparation preference 11/19/2021. Attempt to add 02/02/2018 losartan 25 mg daily, not tolerated due to fatigue. She declines trying additional medication, but we could reconsider a different LEVAR inhibitor or angiotensin receptor yari in future. EKG without concern 06/12/2020, unchanged compared to 05/07/2019. No new symptoms of concern including no chest pain, palpitations or shortness of breath. Advise concerns. Assessment & Plan (08/09/2022 10:46 AM EST): Reported history of 3 vessel bypass grafting in 2011, performed in [place]. She notably had seen Dr. Calderon, form stripper in [place]. She saw Dr. Womack, who had a [...] chest pain, palpitations or shortness of breath. HERB (obstructive sleep apnea) 08/09/2022 Assessment & Plan (02/18/2025 3:06 PM EDT): Ongoing follow-up with [facility] with good compliance control with last evaluation 07/29/2023, she is follow-up and reinforced importance of maintaining use of CPAP. Assessment & Plan (08/20/2024 11:06 AM EST): Ongoing follow-up with [facility] with good compliance control with last evaluation 07/29/2023, she is follow-up and reinforced importance of maintaining use of CPAP. Assessment & Plan (08/02/2023 2:09 PM EST): Ongoing follow-up with [facility] with good compliance control with last evaluation 07/29/2023 with 9-month follow-up recommended. Keep follow-up. Assessment & Plan (07/29/2023 2:25 PM EST): Patient has good compliance and control. AHI 3. Patient is receiving benefit from pap therapy. Plan to continue cpap therapy. Assessment & Plan (05/05/2023 1:38 PM EDT): Patient was diagnosed with mild HERB in 2019 but never started PAP therapy. A CPAP device was ordered at that time but she never followed through with getting her device. She completed a home sleep study on 06/03/2018 that revealed mild HERB with baseline AHI of 9. Benefits of treating sleep apnea discussed with patient and she is agreeable to try PAP therapy at this time. - PAP order sent to [facility] CPAP 6-20 cm - Follow-up in 2 months for 31-90-day compliance visit. Assessment & Plan (02/08/2023 5:29 PM EDT): I noticed [address] Womack, patient declines CPAP despite understanding cardiovascular benefit. Advise if she wants to be reassessed in the future. Assessment & Plan (08/09/2022 10:47 AM EST): Diagnosis [address] Womack, patient declines CPAP, I recommended benefits from a cardiovascular perspective and symptom benefit, she continues to decline. If she would be interested I would be happy to refer her again to refer for reassessment. Essential hypertension 08/09/2022 Assessment & Plan (02/18/2025 3:05 PM EDT): Notable for nonconcerning EKG 08/03/2023, unchanged compared to 06/12/2020. When blood pressure checked at home typically in the 120s over 70s, no lightheadedness or dizziness. Most recent change in regimen includes with modestly elevated clinic on 08/02/2023 increase to losartan 50 mg daily in addition to carvedilol 12.5 mg twice daily. Continue regimen unchanged. Also managed by cardiology. No new concerns as of 02/18/2025. Assessment & Plan (08/20/2024 11:06 AM EST): Notable for nonconcerning EKG 08/03/2023, unchanged compared to 06/12/2020. When blood pressure checked at home typically in the 120s over 70s, no lightheadedness or dizziness. Most recent change in regimen includes with modestly elevated clinic on 08/02/2023 increase to losartan 50 mg daily in addition to carvedilol 12.5 mg twice daily. Continue regimen unchanged. Also managed by cardiology. No new concerns as of 08/20/2024. Assessment & Plan (03/08/2024 10:35 AM EDT): Notable for nonconcerning EKG 08/03/2023, unchanged compared to 06/12/2020. When blood pressure checked at home typically in the 120s over 70s, no lightheadedness or dizziness. Most recent change in regimen includes with modestly elevated clinic on 08/02/2023 increase to losartan 50 mg daily in addition to carvedilol 12.5 mg twice daily. Continue regimen unchanged. Also managed by cardiology. Assessment & Plan (01/31/2024 5:08 PM EDT): Notable for nonconcerning EKG 08/03/2023, unchanged compared to 06/12/2020. When blood pressure checked at home typically in the 120s over 70s, no lightheadedness or dizziness. Most recent change in regimen includes with modestly elevated clinic on 08/02/2023 increase to losartan 50 mg daily in addition to carvedilol 12.5 mg twice daily. Continue regimen unchanged. Also managed by cardiology. Assessment & Plan (10/31/2023 1:46 PM EST): Notable for nonconcerning EKG 08/03/2023, unchanged compared to 06/12/2020. Home checks of blood pressure typically in the 120s to sometimes 130s over 70s. Improved with medicine although she forgot to take today at visit 10/31/2023. Of note with modestly elevated clinic on 08/02/2023 increase to losartan 50 mg daily in addition to carvedilol 12.5 mg twice daily. Tolerating well and blood pressure seems to be in good range. Continue unchanged. Assessment & Plan (10/11/2023 5:42 PM EST): Notable for nonconcerning EKG 08/03/2023, unchanged compared to 06/12/2020. She is not checking her blood pressure any regularly at home but she thinks it is more in the 130s when she does not frequently check it. Modestly elevated clinic today despite admission on 08/02/2023 of losartan 25 mg daily to regimen of carvedilol 12.5 mg twice daily. As such I would like to increase the losartan again to 50 mg daily, monitor blood pressure more regularly, and recheck at follow-up visit. Assessment & Plan (08/02/2023 4:24 PM EST): Notable for nonconcerning EKG 08/03/2023, unchanged compared to 06/12/2020. Even though she has forgotten her medicine today, blood pressure at home is still in the upper 130s to low 140s over upper 70s. As such we will add losartan 25 mg daily to regimen, which could be titrated up further in future. Continue monitoring blood pressure regularly, follow-up 3 months time, sooner as needed. Assessment & Plan (07/29/2023 2:32 PM EST): Sub-optimal control in the office today. Patient states she has not taken her medication today. She got up early and had to take her son the the doctor. Assessment & Plan (05/05/2023 1:36 PM EDT): Hypertension is stable . Continue current treatment regimen. Blood pressure will be reassessed at the next regular appointment. Assessment & Plan (02/08/2023 5:28 PM EDT): Coreg 6.25 twice daily increased to 12.5 mg twice daily through cardiology in early 2022. Previous losartan not tolerated due to fatigue. Overall blood pressure doing well. Monitor blood pressure 3-5 times weekly. Caution salt intake, recommended activity level and benefits of weight loss. Assessment & Plan (12/27/2022 2:15 PM EDT): Coreg 6.25 twice daily increased to 12.5 mg twice daily through cardiology in early 2022. Previous losartan not tolerated due to fatigue. Blood pressure is a little bit up today but she feels that is more related to stress response situation as prior to that it was in good range. We will hold off on any medicine changes but she will monitor more regularly and we will reassess how it is doing at follow-up on 02/07/2023. Monitor blood pressure 3-5 times weekly. Caution salt intake, recommended activity level and benefits of weight loss. Assessment & Plan (08/09/2022 10:47 AM EST): Coreg 6.25 twice daily (increased 06/12/2020), previous losartan not tolerated due to fatigue. Monitor blood pressure 3-5 times weekly. Caution salt intake, recommended activity level and benefits of weight loss. Seasonal allergic rhinitis due to pollen 022 Assessment & Plan (08/20/2024 11:06 AM EST): Seasonal pattern, more spring and fall. Generally good response to Zyrtec Flonase and singular used as needed, currently using with benefit. Additional benefit of saline spray, nasal flushing. No new concerns as of 08/20/2024. Assessment & Plan (01/31/2024 5:10 PM EDT): Seasonal pattern, more spring and fall. Generally good response to Zyrtec Flonase and singular used as needed, currently using with benefit. Additional benefit of saline spray, nasal flushing. Advise concerns. Assessment & Plan (08/02/2023 4:25 PM EST): Overall good response to Zyrtec Flonase and singular used currently off of regularity more spring and fall. Additional benefit of saline spray, nasal flushing. Advise concerns. Assessment & Plan (02/08/2023 5:29 PM EDT): Overall good response to Zyrtec Flonase and singular used currently off of regularity more spring and fall. Additional benefit of saline spray, nasal flushing. Advise concerns. Assessment & Plan (12/27/2022 2:14 PM EDT): Breakthrough congestion drainage with some itchy watery eyes. Prescription for Zyrtec, Flonase and Singulair to use altogether for the next couple weeks, then titrate as needed in the future. Additional benefit of saline spray, nasal flushing. Advise if not improving. Assessment & Plan (08/09/2022 10:48 AM EST): Good response to as needed use of antihistamine, we could add nasal steroid in future as necessary. Additional benefit of saline flushing, nasal spray, etc. Mixed hyperlipidemia 08/09/2022 Assessment & Plan (02/18/2025 3:06 PM EDT): 03/08/2024 total cholesterol 157, triglycerides under 90, HDL 42, LDL 83. Previous 02/08/2023 total cholesterol 151, triglycerides 161, HDL 49, LDL 75, 11/23/2021 total cholesterol 174, triglycerides 158, HDL 52, LDL 97, 06/27/2020 with total cholesterol 138, triglycerides 99, HDL 40, LDL 70. As of 11/20/2023, continues on Crestor 20 mg daily with good control. Continue healthy dietary intake and activity level. Monitor cholesterol regularly with plan to recheck cholesterol when she follows up in 4 months in May 2025. Assessment & Plan (08/20/2024 11:06 AM EST): 03/08/2024 total cholesterol 157, triglycerides under 90, HDL 42, LDL 83. Previous 02/08/2023 total cholesterol 151, triglycerides 161, HDL 49, LDL 75, 11/23/2021 total cholesterol 174, triglycerides 158, HDL 52, LDL 97, 06/27/2020 with total cholesterol 138, triglycerides 99, HDL 40, LDL 70. As of 11/20/2023, continues on Crestor 20 mg daily with good control. Continue healthy dietary intake and activity level. Monitor cholesterol at minimum yearly. Assessment & Plan (03/08/2024 10:37 AM EDT): 02/08/2023 total cholesterol 151, triglycerides 161, HDL 49, LDL 75. Comparison 11/23/2021 total cholesterol 174, triglycerides 158, HDL 52, LDL 97, 06/27/2020 with total cholesterol 138, triglycerides 99, HDL 40, LDL 70. Atorvastatin 40 mg daily previous, at patient request there was a switch to Crestor 20 mg daily 11/19/2021. Continue healthy dietary intake and activity level. Recheck cholesterol with 03/08/2020 for blood work. Assessment & Plan (01/31/2024 5:09 PM EDT): 02/08/2023 total cholesterol 151, triglycerides 161, HDL 49, LDL 75. Comparison 11/23/2021 total cholesterol 174, triglycerides 158, HDL 52, LDL 97, 06/27/2020 with total cholesterol 138, triglycerides 99, HDL 40, LDL 70. Atorvastatin 40 mg daily previous, at patient request there was a switch to Crestor 20 mg daily 11/19/2021. Continue healthy dietary intake and activity level. Monitor cholesterol with next visit and blood work. Assessment & Plan (10/31/2023 1:48 PM EST): 02/08/2023 total cholesterol 151, triglycerides 161, HDL 49, LDL 75. Comparison 11/23/2021 total cholesterol 174, triglycerides 158, HDL 52, LDL 97, 06/27/2020 with total cholesterol 138, triglycerides 99, HDL 40, LDL 70. Atorvastatin 40 mg daily previous, at patient request there was a switch to Crestor 20 mg daily 11/19/2021. Continue healthy dietary intake and activity level. Monitor at minimum yearly. Assessment & Plan (08/02/2023 2:11 PM EST): 02/08/2023 total cholesterol 151, triglycerides 161, HDL 49, LDL 75. Comparison 11/23/2021 total cholesterol 174, triglycerides 158, HDL 52, LDL 97, 06/27/2020 with total cholesterol 138, triglycerides 99, HDL 40, LDL 70. Atorvastatin 40 mg daily previous, at patient request there was a switch to Crestor 20 mg daily 11/19/2021. Continue healthy dietary intake and activity level. Monitor at minimum yearly. Assessment & Plan (02/08/2023 5:28 PM EDT): 11/23/2021 total cholesterol 174, triglycerides 158, HDL 52, LDL 97. Comparison 06/27/2020 with total cholesterol 138, triglycerides 99, HDL 40, LDL 70. Atorvastatin 40 mg daily previous, outpatient request, switch to Crestor 20 mg daily 11/19/2021. Continue healthy dietary intake and activity level. Check pending. Assessment & Plan (08/09/2022 10:48 AM EST): 11/23/2021 total cholesterol 174, triglycerides 158, HDL 52, LDL 97. Comparison 06/27/2020 with total cholesterol 138, triglycerides 99, HDL 40, LDL 70. Atorvastatin 40 mg daily previous, outpatient request, switch to Crestor 20 mg daily 11/19/2021. Continue healthy dietary intake and activity level. Class 1 obesity due to exces s calories with serious comorbidity and body mass index (BMI) of 31.0 to 31.9 in adult 08/09/2022 Assessment & Plan (02/18/2025 3:04 PM EDT): BMI in the 30 range, recommend benefits of healthy diet, exercise, weight loss for multiple associated medical comorbidities. After having modest weight loss in 2023 is kept her weight in a better range as of 2024. Continue healthy diet, exercise and even mild pursued weight loss further. Assessment & Plan (08/20/2024 11:06 AM EST): BMI in the 30 range, recommend benefits of healthy diet, exercise, weight loss for multiple associated medical comorbidities. She has had modest weight loss over the last 8 or 9 months, continue unchanged. Assessment & Plan (01/31/2024 5:00 PM EDT): BMI in the 33 range, recommend benefits of healthy diet, exercise, weight loss for multiple associated medical comorbidities. Assessment & Plan (10/31/2023 1:43 PM EST): Ongoing recommendation for healthy diet, exercise and even modest weight loss, for multiple associated medical comorbidities. Assessment & Plan (08/02/2023 2:08 PM EST): Ongoing recommendation for healthy diet, exercise and even modest weight loss. Assessment & Plan (02/08/2023 5:26 PM EDT): I continue to recommend benefits of healthy diet, exercise and even modest weight loss. Assessment & Plan (08/09/2022 10:48 AM EST): Reinforced importance of healthy diet, exercise and benefits of even modest weight loss for multiple associated comorbidities. Chronic bilateral low back pain without sciatica 08/09/2022 Assessment & Plan (08/20/2024 11:06 AM EST): By history, S1 versus L5 dermatome involvement. Overall stable historically, periodically bothersome but not significantly so, and generally good response to conservative treatment with [id number] Aleve as needed, heating pad. Last such flare on 08/03/2023 which resolved and returned to baseline. Related to left- sided sciatica pattern, initiated amitriptyline 25 mg at nighttime May 2020 with some benefit, increased to 50 mg on 04/02/2021 with ongoing benefit. Continue amitriptyline unchanged. Discussion of potential benefits of periodic physical therapy which she declines but we could reconsider in the future. Assessment & Plan (01/31/2024 5:00 PM EDT): By history, S1 versus L5 dermatome involvement. Overall stable historically, periodically bothersome but not significantly so, and generally good response to conservative treatment with [id number] Aleve as needed, heating pad. Last such flare on 08/03/2023 which resolved and returned to baseline. Related to left- sided sciatica pattern, initiated amitriptyline 25 mg at nighttime May 2020 with some benefit, increased to 50 mg on 04/02/2021 with ongoing benefit. Continue amitriptyline unchanged. With some modest flare of the back, I discussed recommendation for physical therapy to restrengthen and improve flexibility, she is not quite ready to pursue at this time but will call back in the next weeks to month or so, when she can pursue more easily. Assessment & Plan (10/31/2023 1:43 PM EST): By history, S1 versus L5 dermatome involvement. Overall stable historically, periodically bothersome but not significantly so, and generally good response to conservative treatment with [id number] Aleve as needed, heating pad. Last such flare on 08/03/2023 which resolved and returned to baseline. Related to left- sided sciatica pattern, initiated amitriptyline 25 mg at nighttime May 2020 with some benefit, increased to 50 mg on 04/02/2021 with ongoing benefit. Continue treatment unchanged although I discussed that the back could contribute to some of her hip pain and vice versa. She might benefit from therapy in the future. Assessment & Plan (10/11/2023 5:40 PM EST): By history, S1 versus L5 dermatome involvement. Overall stable historically, periodically bothersome but not significantly so, and generally good response to conservative treatment with [id number] Aleve as needed, heating pad. Last such flare on 08/03/2023 which resolved and returned to baseline. She will call back if she changes her mind. Otherwise, related to left-sided sciatica pattern, initiated amitriptyline 25 mg at nighttime May 2020 with some benefit, increased to 50 mg on 04/02/2021 with ongoing benefit. Patient does not feel that her current left hip pain has a relation to her back pain and the pain shooting down the lateral leg does not feel similar to previous sciatica pattern she has had in the past. As such we will continue treatment unchanged although I discussed that the back could contribute to some of her hip pain and vice versa. She might benefit from therapy in the future. Assessment & Plan (08/02/2023 4:23 PM EST): By history, S1 versus L5 dermatome involvement. Minimal but intermittently bothersome, some response to conservative treatment with [id number] Aleve as needed, heating pad. Modest flare of her back with some increased activity last days, offering steroid burst as of visit 08/03/2023 but patient [place]. She will call back if she changes her mind. Otherwise, related to left-sided sciatica pattern, initiated amitriptyline 25 mg at nighttime May 2020 with some benefit, increased to 50 mg on 04/02/2021 with ongoing benefit. Continue unchanged. She tends to be cautious with medicines. Assessment & Plan (12/27/2022 2:16 PM EDT): By history, S1 versus L5 dermatome involvement. Minimal but intermittently bothersome, some response to conservative treatment with [id number] Aleve as needed, heating pad. With what appears to be a flare related to recent use of lifting to help move out her brother staying his who recently, she thinks she is flared this up. Little more achiness in the back and a little more trigger of her left-sided sciatica, no limitations in mobility. Initiate prednisone 10 mg tablet 3 tablets daily x5 days followed by naproxen 375 mg twice daily for another week or 10 days. Heating pad, light stretching. Of note, she has previously declined other interventions, as she has had physical therapy, and does continue home therapy, but we could reconsider if this does not transition back to her baseline. Otherwise, laded to left-sided sciatica pattern, initiated amitriptyline 25 mg at nighttime May 2020 with some benefit, increased to 50 mg on 04/02/2021 with ongoing benefit. Continue unchanged. She tends to be cautious with medicines. Assessment & Plan (08/09/2022 10:49 AM EST): By history, S1 versus L5 dermatome involvement. Minimal but intermittently bothersome, some response to conservative treatment with [id number] Aleve as needed, heating pad. She declines other interventions, as she has had physical therapy in the past and continues home therapy. Nonetheless, we initiated amitriptyline 25 mg at nighttime May 2020 with some benefit, increased to 50 mg on 04/02/2021. Continue unchanged. She tends to be cautious with medicines. Acquired hypothyroidism 08/09/2022 Assessment & Plan (02/18/2025 3:03 PM EDT): 03/08/2024 TSH low normal at 0.489 and free T4 high at 1.99, felt to be slightly overtreated with her medicine based on this result. Decrease of levothyroxine from 112 mcg down to 100 mcg daily. Recheck at this time today on 08/20/2024 with management per results. 02/08/2023 TSH 2.00, free T41.66. Previous on 11/23/2021 TSH normal at 4.20, free T4 normal 1.5, 06/27/2020 with TSH 3.17, free T4-1.48. While taking levothyroxine 100 mcg daily 03/08/2024 TSH low at 0.253 and free T4 normal at 1.35, adjusted down to levothyroxine 88 mcg daily. She has not rechecked since this was recommended, as such we will go ahead and recheck TSH and free T4 today 02/18/2025 with management per results. Assessment & Plan (08/20/2024 11:06 AM EST): 03/08/2024 TSH low normal at 0.489 and free T4 high at 1.99, felt to be slightly overtreated with her medicine based on this result. Decrease of levothyroxine from 112 mcg down to 100 mcg daily. Recheck at this time today on 08/20/2024 with management per results. 02/08/2023 TSH 2.00, free T41.66. Previous on 11/23/2021 TSH normal at 4.20, free T4 normal 1.5, 06/27/2020 with TSH 3.17, free T4-1.48. As noted above patient taking out levothyroxine 100 mcg daily which was decreased 03/08/2024, with recheck of TSH and free T4 08/20/2024 with management per results. Orders: TSH; Future T4, Free; Future T4, Free TSH Assessment & Plan (03/08/2024 10:32 AM EDT): 02/08/2023 TSH 2.00, free T41.66. Previous on 11/23/2021 TSH normal at 4.20, free T4 normal 1.5, 06/27/2020 with TSH 3.17, free T4-1.48. patient taking levothyroxine 112 g daily. Continue unchanged. Recheck with blood work 03/08/2024, management per results. Assessment & Plan (01/31/2024 4:58 PM EDT): 02/08/2023 TSH 2.00, free T41.66. Previous on 11/23/2021 TSH normal at 4.20, free T4 normal 1.5, 06/27/2020 with TSH 3.17, free T4-1.48. patient taking levothyroxine 112 g daily. Continue unchanged. Recheck with blood work at follow-up visit. Assessment & Plan (08/02/2023 2:10 PM EST): 02/08/2023 TSH 2.00, free T41.66. Previous on 11/23/2021 TSH normal at 4.20, free T4 normal 1.5, 06/27/2020 with TSH 3.17, free T4-1.48. patient taking levothyroxine 112 g daily. Continue unchanged. Monitor at minimum yearly. Assessment & Plan (02/08/2023 5:25 PM EDT): 11/23/2021 TSH normal at 4.20, free T4 normal 1.5, comparison 06/27/2020 with TSH 3.17, free T4-1.48. patient taking levothyroxine 112 g daily. Continue unchanged. Recheck pending. Assessment & Plan (08/09/2022 10:49 AM EST): 11/23/2021 TSH normal at 4.20, free T4 normal 1.5, comparison 06/27/2020 with TSH 3.17, free T4-1.48. patient taking levothyroxine 112 g daily. Continue unchanged. Ductal carcinoma in situ (DCIS) of right breast 08/09/2022 Assessment & Plan (02/18/2025 3:05 PM EDT): Fall 2020 breast imaging concerning with ultimate right breast biopsy at [facility] on 07/07/2021, as performed by Dr. Valentin Chaves. Ultimately resulted in right sided lumpectomy with ductal carcinoma in situ diagnosis for which she has followed up most recently with Dr. Gasper Leo on 11/15/2024 with negative and reassuring breast imaging and 1 year follow-up recommended. Assessment & Plan (08/09/2022 10:50 AM EST): Fall 2020 breast imaging concerning with ultimate right breast biopsy at [facility] on 07/07/2021, as performed by Dr. Valentin Chaves. Most recent follow-up through [facility] 07/15/2022 normal with 1 year follow-up recommended Encounters Date Type Department Care Team Description 04/18/2025 External PBMM Data [facility] CALL CENTER [address] [facility] [place] [address] Pharmacy, Payor Data 04/17[facility] [address] [place] [address] [place] [phone] Fidencio Walsh MD 04/09/2025 Refill [facility] [address] [place] [address] [place] [phone] Fidencio Walsh MD Seasonal allergic rhinitis due to pollen 04/09/2025 [facility]IMARY [facility] [address] [place] [address] [place] [phone] Fidencio Walsh MD Acquired hypothyroidism 04/05/2025 Results Follow-Up [facility] [address] [place] [address] [place] [phone] Fidencio Walsh MD 04/04/2025 1:00 PM EDT Office Visit [facility]IMARY [address] [place] [address] Fidencio Walsh MD Stage 3a chronic kidney disease (Primary Dx); Iron deficiency anemia, unspecified iron deficiency anemia type; Coronary artery disease involving coronary bypass graft of [place] heart without angina pectoris; Prediabetes 04/04/2025 Travel 03/28/2025 Refill [facility] [address] [place] [address] [place] [phone] Fidencio Walsh MD Seasonal allergic rhinitis due to pollen 03/26/2025 Results Follow-Up [facility] [address] [place] [address] [place] [phone] Fidencio Walsh MD 03/25/[address] [place] [phone] Fidencio Walsh MD Results 03/25/2025 Refill [facility] [address] [place] [address] [place] [phone] Fidencio Walsh MD Acquired hypothyroidism 03/21/2025 External PB Data [facility] CALL CENTER [address] [place] [phone] Pharmacy, Payor Data 03/19/2025 Refill [facility] [address] [place] [address] [place] [phone] Fidencio Walsh MD Seasonal allergic rhinitis due to pollen 02/22/2025 Refill [facility] [address] [place] [address] [place] [phone] Fidencio Walsh MD Essential hypertension 02/21/2025 Telephone [facility] [address] [place] [address] [place] [phone] Fidencio Walsh MD REFERRAL 02/19/2025 Results Follow-Up [facility] [address] [place] [phone] Fidencio Walsh MD ED - Called Back For Treatment Only 02/18/2025 3:00 PM EDT Office Visit [facility] [address] [place] [address] [place] [phone] Fidencio Walsh MD Prediabetes (Primary Dx); Acquired hypothyroidism; Ductal carcinoma in situ (DCIS) of right breast; Class 1 obesity due to excess calories with serious comorbidity and body mass index (BMI) of 30.0 to 30.9 in adult; Coronary artery disease involving coronary bypass graft of [place] heart without angina pectoris; Essential hypertension; Iron deficiency anemia, unspecified iron deficiency anemia type; Mixed hyperlipidemia; HERB (obstructive sleep apnea); Stage 3a chronic kidney disease; Vaginal bleeding 02/18/2025 Travel 02/08/2025 Refill [facility] [address] [place] [address] [place] [phone] Fidencio Walsh MD Seasonal allergic rhinitis due to pollen from Last 3 Months Immunizations Immunization Administration Dates Next Due Arexvy (RSV, Adults 60+ yrs) 07/30/2024,06/30/20 23 Fluad Quad 65+ 05/28/2020 Fluzone High-Dose 65+YRS 07/13/2024,05/29,05/05/2018,2016,05/17/2016 Fluzone High-Dose 65+yrs 05/26/2023,05/31/2022,0 05/26/2021 HPV Bivalent 05/31/2022 Hepatitis A 12/21/2018,06/22/2018 Influenza, Unspecified 05/05/2018 Pneumococcal Conjugate 20-Va lent (PCV20) 12/21/2022,08/09/2022 Shingrix 11/16/2022,09/10/2022 Tdap 07/30/2024,05/05/2018 Family History Medical History Relation Name Comments Other Brother 1 Goodpasture's d isease Other Brother 2 kidney disease/ Bright disease, Diabetes type II Brother 3 Heart disease Brother 3 Hypertension Brother 3 Other Brother 3 AGENT ORANGE EX POSURE Cancer Father PULMONARY CARCI NOMA SECONDARY TO SMOKING AND MINING WORK Other Maternal Grandfather STOMACH ISSUES Cancer Maternal Grandmother LIVER A ND BILE DUCT Diabetes Mother Other Mother CARDIAC VALVULA R DISEASE Ulcers Mother Other Sister 1 Bright disease and cervical carcinoma Other Sister 2 EYE ISSUES Hypertension Sister 3 Diabetes Son Hypertension Son Obesity Son Relation Name Status Comments Brother 1 (Age 50) Brother 2 (Age 21) Brother 3 Father (Age 50) Maternal Grandfather (Age 99) Maternal Grandmother (Age 97) Mother (Age 94) Paternal Grandfather (Age 70'S) Paternal Grandmother (Age 70'S) Sister 1 Sister 2 Sister 3 Son Social History Tobacco Use Types Packs/Day Years Used Date Smoking Tobacco: Former Cigarettes 1 28 1 966 - 1993 Passive Smoke Exposure: Past Smokeless Tobacco: Never Tobacco Cessation:Counseling Given: No Alcohol Use Standard Drinks/Week Comments Never 0 [...] Orientation Straight 02/03/2023 2: 56 PM EDT Last Filed Vital Signs Vital Sign Reading [...] Mass Index 29.23 04/04/2025 1:07 PM EDT Plan of Treatment Upcoming Encounters Date Type Department Care Team (Late st Contact Info) Description 06/20/2025 2:00 PM EDT Office Visit [facility] [address] [place] [address] [place] [phone] Fidencio Walsh MD [address] [place] [address] [place] [phone] Health Maintenance Due Date Last Done Comments COLOGUARD 1995 COLON CANCER SCREENING 5 CATHY R SIGMOIDOSCOPY 1995 [address] COLONOGRAPHY 1995 FECAL OCCULT BLOOD TEST 1995 FIT Testing (1 year) 1995 DXA SCAN 10/19/2023 10/19/2021, 10/19/2021 LIPID PANEL 03/08/2025 03/08/2024, 01/28, 02/23/2024, Additional history exists COVID-19 Vaccine (2023-09 5 season) 2025 07/13/2024, 05/26/2023, 05/31/2022, Additional history exists INFLUENZA VACCINE 05/29/2025 07/13/2024, , 05/31/2022, Additional history exists ANNUAL WELLNESS VISIT 08/20/2025 08/20/2024 , 08/02/2023, 08/09/2022 MAMMOGRAM 11/15/2026 11/15/2024, 10/28, 11/10/2023, Additional history exists COLONOSCOPY 06/04/2034 06/04/2024, 06/04/2018 COLORECTAL CANCER SCREENING 06/04/2034 TDAP/TD VACCINES (3 - Td or Tdap) 07/30/2034 024, 05/05/2018 ZOSTER VACCINE Completed 11/16/2022, 09/10/2022 Pneumococcal Vaccine 50+ Completed 12/21/2022, 07/29 HEPATITIS C SCREENING Completed 02/08/2023 Procedures Procedure Name Priority Date/Time Associated Diagnosis Comments BASIC METABOLIC PANEL Routine 04/04/2025 1:32 PM EDT Stage 3a chronic kidney disease MICROALBUMIN / CREATININE URINE RATIO Routine 04/04/2025 1:32 PM EDT Stage 3a chronic kidney disease SCANNED - LABS 03/25/2025 T4, FREE Routine 02/18/2025 2:29 PM EDT Acquired hypothyroidism TSH Routine 02/18/2025 2:29 PM EDT Acquired hypothyroidism POCT GLUCOSE, BLD (NON STRIP) Routine 02/18/2025 2:28 PM EDT Prediabetes POCT GLYCOSYLATED HEMOGLOBIN (HGB A1C) Routine 02/18/2025 2:28 PM EDT Prediabetes SCANNED - COLONOSCOPY 06/04/2024 LIPID PANEL Routine 03/08/2024 10:35 AM EDT Mixed hyperlipidemia HEPATITIS C ANTIBODY Routine 02/08/2023 2:39 PM EDT Other fatigue HM MAMMOGRAPHY Routine 01/17/2022 HM DEXA SCAN Routine 10/19/2021 from Last 3 Months or Most Recently Relevant to Health Maintenance Results * (ABNORMAL) Microalbumin / Creatinine Urine [...] 1:32 PM EDT 04/04/2025 Comment:Urine Release to darleen Lan [facility] (AMBULATORY) - 04/05/2025 1:07 PM EDT Performed at: 01 - [facility] [address] [place] [id number] Tallow Maker: Sidney Verdin PhD, Phone: [phone] us Fidencio Walsh MD URINE ORDERABLES Final Result [facility] (AMBULATORY) [address] [place] [address], [facility] [address] [place] [address], * (ABNORMAL) Basic Metabolic Panel (04/04/2025 1:32 PM EDT) Glucose 85 70 - 99 mg/dL [facility] [...] 1:32 PM EDT 04/04/2025 Comment:Blood Release to [facility] (AMBULATORY) - 04/05/2025 11:07 AM EDT Performed at: 01 - [facility] [address] [place] [id number] Tallow Maker: Sidney Verdin PhD, Phone: [phone] us Fidencio Walsh MD LAB BLOOD ORDERABLES Final Resul t [facility] [place] ([facility]) [address] [place] [address], [facility] [address] [place] [address], * LABS SCANNED (03/25/2025) us Fidencio Walsh MD LAB BLOOD ORDERABLES Final Resul t * TSH (02/18/2025 2:29 PM EDT) Pathologist [facility] TSH 1.230 0.450 - 4.500 uIU/mL [facility] Blood Structure of right upper limb / Unknown 02/18/2025 2:29 PM EDT 02/18/2025 Comment:Blood Release to pat i Narrative [facility] - 02/19/2025 7:06 AM EDT Performed at: [address] [id number] Tallow Maker: Sidney Verdin PhD, Phone: [phone] us Fidencio Walsh MD LAB BLOOD ORDERABLES Final Resul t Performing Organization Address [facility] de Phone Number [facility] [address] [place] [address], [facility] [address] [place] [address], * T4, Free (02/18/2025 2:29 PM EDT) Free T4 1.43 0.82 - 1.77 ng/dL [facility] Blood Structure of right upper limb / Unknown 02/18/2025 2:29 PM EDT 02/18/2025 Comment:Blood Release to pat i Narrative [facility] - 02/19/2025 7:06 AM EDT Performed at: [address] [id number] Tallow Maker: Sidney Verdin PhD, Phone: [phone] us Fidencio Walsh MD LAB BLOOD ORDERABLES Final Resul t Performing Organization Address [facility] de Phone Number [facility] (AMBULATORY) [address] [place] [address], [place] [phone] [facility] [address] [place] [address], [place] [phone] * POC Glucose, Blood (02/18/2025 2:28 PM EDT) Glucose 87 70 - 130 mg/dL Lot Number [id number] Expiration Date 09/06/2025 Blood 02/18/2025 2:28 PM EDT us Fidencio Walsh MD POINT OF CARE TEST ORDERABLES Fi nal Result * POC Glycosylated Hemoglobin (Hb A1C) (02/18/2025 2:28 PM EDT) Hemoglobin A1C 5.6 4.5 - 5.7 % [facility] Lot Number [id number] [facility] Expiration Date 10/19/2026 [facility] Blood 02/18/2025 2:28 PM EDT Fidencio Walsh MD POINT OF CARE TEST ORDERABLES Fi nal Result [facility]
[address] [place] [address], * Colonoscopy, Scan (06/04/2024) Javon Wing MD CHART REVIEW T ABS Final Result * (ABNORMAL) Lipid Panel (03/08/2024 10:35 AM EDT) Total Cholesterol 157 100 - 199 mg/dL [facility] Triglycerides 190(H) 0 - 149 mg/dL [facility] HDL Cholesterol 42 >39 mg/dL [facility] VLDL Cholesterol Quinn 32 5 - 40 mg/dL [facility] LDL Chol Calc (NIH) 83 0 - 99 mg/dL [facility] Blood Structure of left upper limb / Unknown 03/08/2024 10:35 AM EDT 03/09/2024 Comment:Blood Release to pat i Narrative [facility] (AMBULATORY) - 03/12/2024 7:06 PM EDT Performed at: [address] [place] [id number] Tallow Maker: Sidney Verdin PhD, Phone: [phone] Fidencio Walsh MD LAB BLOOD ORDERABLES Final Resul t [facility] (AMBULATORY) [address] [place] [address], [place] [phone] [facility] [address] [place] [address], * Hepatitis C Antibody (02/08/2023 2:39 PM EDT) Hep C Virus Ab Non Reactive Non Reactive [facility] Comment: HCV antibody alone does not differentiate between previously resolved infection and active infection. Equivocal and Reactive HCV antibody results should be followed up with an HCV RNA test to support the diagnosis of active HCV infection. Blood Structure of left upper limb / Unknown 02/08/2023 2:39 PM EDT 02/09/2023 Comment:Blood Release to darleen Lan [facility] (AMBULATORY) - 02/10/2023 6:07 AM EDT Performed at: - [facility] [address] [place] [id number] Tallow Maker: Sidney Verdin PhD, Phone: [phone] us Fidencio Walsh MD LAB BLOOD ORDERABLES Final Resul t [facility] (AMBULATORY) [address] [place] [address], [facility] [address] [place] [address], * MAMMOGRAPHY (01/17/2022) Anatomical Region Laterality Modality Other [facility] HEALTH MAINTENANCE Final Resu lt * DEXA SCAN (10/19/2021) Anatomical Region Laterality Modality Other [facility] HEALTH MAINTENANCE Final Resu lt from Last 3 Months or Most Recently Relevant to Health Maintenance Insurance [employer] H[employer] Care Teams Hydraulic Bull Riveter Operator Relationship Specialty Start Date End Date Fidencio Walsh MD [address] [place] [address] [place] [address] PCP - General Internal Medicine 08/09/22
--- OUTSIDE RECORDS SUMMARY | 2025-05-01 13:10 | XMS_ITS | Encounter Summary ---
Author Organization [employer] ([place], [place], [place], [place]) Address [address] [place] [address] Care Team Providers Care Pre Sales Systems Engineer Name Role Phone Fidencio Walsh MD Primary Care Provider [phone] Miranda Menjivar MD Unavailable [phone] Kirsten Ku MD Unavailable [phone] Encounter Details Date Type Department Care Team (Latest Contact Info) Description 03/22/2025 Travel Social History Tobacco Use Types Packs/Day Years [...] Date Cl rded Speak language other than Persian at home Not on file 09/07/2023 Want [...] on file documented as of this encounter Plan of Treatment Upcoming Encounters Date Type Department Care Team (Late st Contact Info) Description 11/12/2025 1:00 PM EDT Office Visit [facility] Cardiology - [address] [place] [address] Alicia Cruz MD [address] [facility] [address] [place] [address] 11/21/2025 11:00 AM EDT Appointment [address] [place] [address] Tonja Green PA-C [address] [facility] [address] [place] [address] 11/21/2025 12:00 PM EDT Appointment [address] [place] [address] Vaelntin Chaves MD [address] [facility] [address] [place] [address] 11/21/2025 1:00 PM EDT Office Visit [facility] [address] [facility] [address] [place] [address] Valentin Chaves MD [address] [facility] [address] [place] [address] 11/21/2025 3:00 PM EDT Office Visit [facility] [address] [place] [address] Kirsten Ku MD [address] [facility] [address] [place] [address] documented as of this encounter Visit Diagnoses Not on filedocumented in this encounter Care Teams Pre Sales Systems Engineer Relationship Specialty Start Date End Date Nico, Fidencio Chowdhury MD [address] [place] [address] PCP - General General Internal Medicine 07/15/22 Miranda Menjivar MD [address] [facility] [address] [place] [address] Referring Physician Cardiology 02/07/24 Kirsten Ku MD [address] [facility] [address] [place], [place] [id number] Hematology and Oncology 02/12/25 documented as of this encounter
--- OUTSIDE RECORDS SUMMARY | 2025-05-01 13:10 | XMS_ITS | Referral Summary ---
Author Organization [employer] ([place], [place], [place], [place]) Address [address] [place] [address] Care Team Providers Care Tennis Player Name Role Phone Fidencio Walsh MD Primary Care Provider Miranda Menjivar MD Unavailable [phone] Kirsten Ku MD Unavailable [phone] Encounters Date Type Department Care Team Description 03/26/2025 Telephone [facility] [place] [address] [place] [address] Kirsten Ku MD Medical Records 03/25/2025 Telephone [facility] [place] [address] [place] [address] Tonja Green PA-C Results 03/22/2025 Travel 03/22/2025 1:00 PM EDT Office Visit [facility] [place] [address] [place] [address] Tonja Green PA-C History of breast cancer (Primary Dx); Anemia, unspecified type 02/12/2025 Telephone [facility] Cardiology - [address] [place] [address] Deysi Campbell CMA Call Back from Last 3 Months Allergies Active Allergy Reactions Criticality Noted Date Comments Codeine Hives High 05/19/2022 1CAUSES SWELLING AND SOB Medications rosuvastatin [...] disease invo lving coronary bypass graft of ambler heart without angina pectoris 08/09/2022 Overview (08/25/2022): Last Assessment & Plan: Reported history of 3 vessel bypass grafting in 2011, performed in [place]. She notably had seen Dr. Calderon, sanitation laborer in [place]. She saw Dr. Womack, who had a [...] from 06/03/2021:Stage 0(cTis (DCIS), cN0, cM0, ER+, CT+) - Signed by Kirsten Ku MD on 07/09/2022 Resolved Problems Problem Noted Date Diagnosed Date Resolved Date At risk for sleep apnea 08/25/202207/302 Social History Tobacco Use Types Packs/Day Years [...] Date Cl rded Speak language other than Albanian at home Not on file 09/07/2023 Want [...] Description 11/12/2025 1:00 PM EDT Office Visit [facility] Cardiology - [address] [place] [address] Alicia Cruz MD [address] [place] [address] 11/21/2025 11:00 AM EDT Appointment [facility] 160 [facility] [address] [place] [address] Tonja Green PA-C 347 [facility] 300 [place] [address] 11/21/2025 12:00 PM EDT Appointment [facility] 160 [facility] 101 [place] [address] Valentin Chaves MD 160 [facility] 101 [place] [address] 11/21/2025 1:00 PM EDT Office Visit [facility] [address] [address] Valentin Chaves MD [address] [address] 11/21/2025 3:00 PM EDT Office Visit [facility] [place] [address] [address] [facility] 300 [place] [address] Kirsten Ku MD [address] [address] Procedures Procedure Name Priority Date/Time Associated Diagnosis [...] Final Re sult [facility] [place] [address] [phone] * Iron and TIBC (03/22/2025 12:51 PM EDT) [facility] Iron 77 50.0 - 170.0 ug/dL 03/22/2025 3:00 PM EDT [facility] TIBC 291 250 - 450 ug/dL 03/22/2025 3:00 PM EDT [facility] % Saturation 26 15 - 55 % 03/22/2025 3:00 PM EDT [facility] UIBC 214 03/22/2025 3:00 PM EDT [facility] Blood Venipuncture / Unknown 03/22/2025 12:51 PM EDT 03/22/2025 12:56 PM EDT us Tnoja Peter PA-C LAB BLOOD ORDERABLES Final Re sult Performing Organization Address City/[facility]/ZIP Co de Phone Number [facility] [address] [phone] * Ferritin (03/22/2025 12:51 PM EDT) Ferritin 55.00 8.00 - 252.00 ng/mL 03/22/2025 3:00 PM EDT [facility] Blood Venipuncture / Unknown 03/22/2025 12:51 PM EDT 03/22/2025 12:56 PM EDT us Tonja Peter PA-C LAB BLOOD ORDERABLES Final Re sult Performing Organization Address [facility] Co de Phone Number [facility] [address] [phone] * (ABNORMAL) CMP (done in hospital lab) (03/22/2025 12:51 PM EDT) Sodium 138 136 - 146 meq/L 03/22/2025 3:00 PM EDT [facility] Potassium 4.0 3.5 - 5.1 meq/L 03/22/2025 3:00 PM EDT [facility] Chloride 105 102 - 112 meq/L 03/22/2025 3:00 PM EDT [facility] CO2 29 21 - 32 meq/L 03/22/2025 3:00 PM EDT [facility] Calcium 9.3 8.5 - 10.1 mg/dL 03/22/2025 3:00 PM EDT [facility] Glucose 99 74 - 100 mg/dL 03/22/2025 3:00 PM EDT [facility] BUN 22 7 - 22 mg/dL 03/22/2025 3:00 PM T [facility] Creatinine 1.40(H) 0.55 - 1.02 mg/dL 03/22/2025 3:00 PM [facility] BUN/Creatinine 16 8 - 20 03/22/2025 3:00 PM T [facility] Albumin 4.0 3.4 - 5.0 g/dL 03/22/2025 3:00 PM [facility] Alkaline Phosphatase 61 27 - 136 U/L 03/22/2025 3:00 PM T [facility] ALT 22 12 - 78 U/L 03/22/2025 3:00 PM T [facility] AST 28 5 - 37 U/L 03/22/2025 3:00 PM [facility] Total Bilirubin 0.4 0.2 - 1.3 mg/dL 03/22/2025 3:00 PM [facility] Protein, Total 7.8 6.4 - 8.2 gm/dL 03/22/2025 3:00 PM [facility] Anion Gap 8(L) 9 - 20 03/22/2025 3:00 PM [facility] A/G Ratio 1.1 1.1 - 2.5 03/22/2025 3:00 PM [facility] Globulin 3.8 1.5 - 4.5 g/dL 03/22/2025 3:00 PM [facility] Osmolality Calc 279.0 mOsm/kg 3:00 PM [facility] eGFR (mL/min/1.73m2) 40(L) >=60 mL/min/1.7 3m2 03/22/2025 3:00 PM [facility] Comment:ESTIMATED GFR IS NOT ACCURATE CREATININE CLEARANCE IN PREDICTING GLOMERULAR FILTRATION RATE. ESTIMATED GFR IS NOT APPLICABLE FOR DIALYSIS PATIENTS. Blood Venipuncture / Unknown 03/22/2025 12:51 PM EDT 03/22/2025 12:56 PM EDT us Tonja Peter PA-C LAB BLOOD ORDERABLES Final Re sult [facility] [address] [place] [id number] [phone] * MM digital mammo diagnostic with corine [...] recommended imaging studies/procedures. At our facility, a [place] marker is positioned over a visible skin [...] family history of breast cancer COMPARISON STUDY: [facility] 2023 through 2017 FINDINGS: Craniocaudal and mediolateral oblique images of both breasts were obtained in 2D and DBT modes. Synthesized views were reconstructed from DBT data. Breast density:There are scattered areas of fibroglandular density. Lumpectomy changes are stable. There is no evidence of dominant mass, architectural distortion, or suspicious calcifications. This examination was reviewed with the benefit of computer aided detection (CAD). us Valentin Chaves MD IMG MAMMOGRAPHY ORDERABLES F [...] FINDINGS: Bone densitometry was performed using a [employer] iDXA unit. Sites measured included the spine, distal [...] FINDINGS: Bone densitometry was performed using a [employer] iDXA unit. Sites measured included the spine, distal [...] of tobacco and alcohol. Gustavo Landry MD IM DXA ORDERABLES Final Result from Last 3 Months or Most Recently Relevant to Health Maintenance Insurance [id number] (Home) [address] [id number] [facility] Advance Directives For more information, please contact: [phone] * Full Code (Latest Code Status on File) Date Activated Date Inactivated Comments 02/23/2024 10:22 AM 02/24/2024 4:25 AM Care Teams Tennis Player Relationship Specialty Start Date End Date Fidencio Walsh MD [address] [place] [address] [place] [address] PCP - General General Internal Medicine 07/15/22 Miranda Menjivar MD [address] [facility] [address] [place], [place] [id number] Referring Physician Cardiology 02/07/24 Kirsten Ku MD 2174 [facility] [address] [place], [place] [address] Hematology and Oncology 02/12/25
--- OUTSIDE RECORDS SUMMARY | 2025-05-01 13:10 | XMS_ITS | Encounter Summary ---
Author Organization [employer] ([place], [place], [place], [place]) Address [address] [place] [address] Care Team Providers Care Nursing Resident Name Role Phone Fidencio Walsh MD Primary Care Provider Miranda Menjivar MD Unavailable [phone] Kirsten Ku MD Unavailable [phone] Reason for Visit * Reason Onset Date Comments Results 03/25/2025 Encounter Details Date Type Department Care Team (Late st Contact Info) Description 03/25/2025 Telephone [facility] [place] [address] [facility] [address] [place] [address] Tonja Green PA-C [address] [place] [address] Results Social History Tobacco Use Types Packs/Day Years [...] Date Cl rded Speak language other than Mozambican at home Not on file 09/07/2023 Want [...] encounter Miscellaneous Notes * Telephone Encounter - Dinora Barriga RN - 03/25/2025 2:50 PM EDT Pt notified of Dr Walsh's office recommendations to call and speak to his RN about whether or not heneeds to see her sooner than May. She will call his office today. * Telephone Encounter - Dinora Barriga RN - 03/25/2025 1:11 PM EDT Pt called back to Rn line stating that she thought she had appt with PCP in Mar but doesn't have one until May. Rn contacted DR Fidencio Walsh's office to obtain new fax #, as fax didn't go through earlier. Was givenfax #[phone]. His office advised to have pt call and speak to Dr Fidencio Walsh's Rn to see if he wants to see her sooner. Rn faxed office note and labs from 03/22/[address] Walsh. LM to have pt return call. * Telephone Encounter - Dinora Barriga RN - 03/25/2025 8:59 AM EDT Pt notified of results and recommendations per Tonja Green PA-C. Pt verbalized understanding. RN faxed report to PCP Dr Walsh and pt will f/u next month at her appt on 04/20/25 with PCP. * Telephone Encounter - Dinora Barriga RN - 03/25/2025 8:56 AM EDT ----- Message from Tonja Green sent at 03/22/2025 4:06 PM EDT ----- Kidney dysfunction appears somewhat chronic. Push fluids, avoid NSAIDs. Follow- up with PCP for this. documented in this encounter Plan of Treatment Upcoming Encounters Date Type Department Care Team (Late st Contact Info) Description 11/12/2025 1:00 PM EDT Office Visit [facility] Cardiology - [address] [place] [address] Alicia Cruz MD 211 [facility] [address] [place] [address] 11/21/2025 11:00 AM EDT Appointment [facility] 160 [facility] 101 [place] [address] Tonja Green PA-C [address] [facility] 300 [place] [address] 11/21/2025 12:00 PM EDT Appointment [facility] 160 [facility] 101 [place] [address] Valentin Chaves MD 160 [address] [facility] 101 [place] [address] 11/21/2025 1:00 PM EDT Office Visit [facility] 160 [facility] 101 [place] [address] Valentin Chaves MD 160 [address] [facility] 101 [place] [address] 11/21/2025 3:00 PM EDT Office Visit [facility] [place] [address] [place] [address] Kirsten Ku MD [address] [facility] [address] [place] [address] documented as of this encounter Visit Diagnoses Not on filedocumented in this encounter Care Teams Nursing Resident Relationship Specialty Start Date End Date Fidencio Walsh MD [address] [place] [address] [place] [address] PCP - General General Internal Medicine 07/15/22 Miranda Menjivar MD 1401 [facility] [address] [place] [address] Referring Physician Cardiology 02/07/24 Kirsten Ku MD 3938 [facility] [address] [place] [address] Hematology and Oncology 02/12/25 documented as of this encounter
--- OUTSIDE RECORDS SUMMARY | 2025-05-01 13:11 | XMS_ITS | Encounter Summary ---
Author Organization [employer] ([place], [place], [place], [place]) Address [address] [place] [address] Care Team Providers Care Industrial Technology Education Teacher Name Role Phone Fidencio Walsh MD Primary Care Provider [phone] Miranda Menjivar MD Unavailable [phone] Kirsten Ku MD Unavailable [phone] Encounter Details Date Type Department Care Team (Late st Contact Info) Description 01/11/2023 Outside Orders [facility] Central Scheduling 1 [place] [address] Kirsten Ku MD [address] [facility] [address] [place] [address] Visit for screening mammogram (Primary Dx) Social History Tobacco Use Types Packs/Day Years Used Date Smoking Tobacco: Former Smokeless Tobacco: Never Alcohol Use Standard Drinks/Week Comments Not Currently 0 (1 standard drink = 0.6 oz pur e alcohol) Comments Unknown Sex and Gender Information Value Date Recorded Sex Assigned at Not on file Legal Sex Female 3:28 PM CDT Gender Identity Not on file Sexual Orientation Not on file COVID-19 Exposure Response Date Recorded In the last 10 days, have yo u been in contact with someone who was confirmed or suspected to have Coronavirus/COVID-19? No / Unsure 01/06/2023 11:30 AM EDT documented as of this encounter Plan of Treatment Upcoming Encounters Date Type Department Care Team (Late st Contact Info) Description 11/12/2025 1:00 PM EDT Office Visit [facility] Cardiology - [address] [place] [address] Alicia Cruz MD [address] [place] [address] 11/21/2025 11:00 AM EDT Appointment [address] [place] [address] Tonja Green PA-C 3470 [facility] 300 [place] [address] 11/21/2025 12:00 PM EDT Appointment [address] [place] [address] Valentin Chaves MD [address] [address] 11/21/2025 1:00 PM EDT Office Visit [facility] [address] [place] [address] Valentin Chaves MD 160 [facility] 101 [place] [address] 11/21/2025 3:00 PM EDT Office Visit [facility] - [address] [facility] 300 [place] [address] Kirsten Ku MD 3470 [facility] 300 [place] [address] documented as of this encounter Visit Diagnoses Diagnosis Visit for screening mammogram- Primary documented in this encounter Care Teams Industrial Technology Education Teacher Relationship Specialty Start Date End Date Minier, Fidencio Chowdhury MD [address] [place] [address] [place] [address] PCP - General General Internal Medicine 07/15/22 Miranda Menjivar MD 1401 [facility] [address] [place] [address] Referring Physician Cardiology 02/07/24 Kirsten Ku MD [address] [facility] [address] [place] [address] Hematology and Oncology 02/12/25 documented as of this encounter
--- OUTSIDE RECORDS SUMMARY | 2025-05-01 13:11 | XMS_ITS | Encounter Summary ---
Author Organization [facility] Address [address] [place] [address] Care Team Providers Care Network Solutions Architect Name Role Phone Fidencio Walsh MD Primary Care Provider [phone] Reason for Visit * Reason Comments Med Refill Encounter Details Date Type Department Care Team (Late st Contact Info) Description 07/20/2023 Refill [facility] [address] [place] [address] [place] [address] Fidencio Walsh MD [address] [place] [address] [place] [address] Social History Tobacco Use Types Packs/Day Years Used Date Smoking Tobacco: Former Cigarettes 1 28 1 966 - 1993 Passive Smoke Exposure: Past Smokeless Tobacco: Never Alcohol Use Standard Drinks/Week Comments Never 0 (1 standard drink = 0.6 oz pur e alcohol) PHQ-2 Answer Date Recorded Retired PHQ-9: Brief Depression Severity Measure Score 0 02/08/2023 Comments Unknown Sex and Gender Information Value [...] Description 06/20/2025 2:00 PM EDT Office Visit [facility] [address] [place] [address] [place] [address] Fidencio Walsh MD [address] [place] [address] [place] [address] documented as of this encounter Visit Diagnoses Not on filedocumented in this encounter Care Teams Network Solutions Architect Relationship Specialty Start Date End Date Fidencio Walsh MD [address] [place] [address] PCP - General Internal Medicine 08/09/22 documented as of this encounter
--- OUTSIDE RECORDS SUMMARY | 2025-05-01 13:11 | XMS_ITS | Encounter Summary ---
Author Organization [employer] ([place], [place], [place], [place]) Address [address] [place] [address] Care Team Providers Care Academic Affairs Director Name Role Phone Fidencio Walsh MD Primary Care Provider Miranda Menjivar MD Unavailable [phone] Kirsten Ku MD Unavailable [phone] Encounter Details Date Type Department Care Team (Late Contact Info) Description 01/14/2023 Outside Orders [facility] [address] [place] [address] Fidencio Walsh MD [address] [place] [address] Visit for screening mammogram (Primary Dx) Social [...] Description 11/12/2025 1:00 PM EDT Office Visit [facility] Cardiology - [address] [place] [address] Alicia Cruz MD 211 [facility] [address] [place] [address] 11/21/2025 11:00 AM EDT Appointment [address] [place] [address] Tonja Green PA-C [address] [facility] 300 [place] [address] 11/21/2025 12:00 PM EDT Appointment [address] [place] [address] Valentin Chaves MD [address] [address] 11/21/2025 1:00 PM EDT Office Visit [facility] [address] [place] [address] Valentin Chaves MD [address] [address] 11/21/2025 3:00 PM EDT Office Visit [facility] [place] [address] [facility] 300 [place] [address] Kirsten Ku MD [address] [facility] 300 [place], [place] [address] documented as of this encounter Visit Diagnoses Diagnosis Visit for screening mammogram- Primary documented in this encounter Care Teams Academic Affairs Director Relationship Specialty Start Date End Date Ovett, Fidencio Chowdhury MD [address] [place] [address] [place] [address] PCP - General General Internal Medicine 07/15/22 Miranda Menjivar MD 1401 [facility] [address] [place] [address] Referring Physician Cardiology 02/07/24 Kirsten Ku MD 8020 [facility] [address] [place] [address] Hematology and Oncology 02/12/25 documented as of this encounter
--- OUTSIDE RECORDS SUMMARY | 2025-05-01 13:11 | XMS_ITS | Encounter Summary ---
Author Organization [employer] ([place], [place], [place], [place]) Address [address] [place] [address] Care Team Providers Care Bisque Tile Burner Name Role Phone Fidencio Walsh MD Primary Care Provider Miranda Menjivar MD Unavailable Kirsten Ku MD Unavailable [phone] Encounter Details Date Type Department Care Team (Late Contact Info) Description 07/15/2022 Outside Orders [facility] [address] [place] [address] Valentin Chaves MD [address] [place] [address] Personal history of breast cancer (Primary Dx) Social History Tobacco Use Types [...] suspected to have Coronavirus/COVID-19? No / Unsure 07/12/2022 10:46 AM EST documented as of this encounter Plan of Treatment Upcoming Encounters Date Type Department Care Team (Late st Contact Info) Description 11/12/2025 1:00 PM EDT Office Visit [facility] Cardiology - [address] [place] [address] Aliica Cruz MD [address] [place], [place] [address] 11/21/2025 11:00 AM EDT Appointment [facility] 160 [facility] 101 [place] [address] Tonja Green PA-C 3470 [facility] 300 [place] [address] 11/21/2025 12:00 PM EDT Appointment [facility] 160 [facility] [address] [place] [address] Valentin Chaves MD 160 [facility] 101 [place] [address] 11/21/2025 1:00 PM EDT Office Visit [facility] 160 [facility] 101 [place] [address] Valentin Chaves MD 160 [address] [facility] 101 [place] [address] 11/21/2025 3:00 PM EDT Office Visit [facility] - [address] [facility] 300 [place] [address] Kirsten Ku MD 3470 [facility] 300 [place], [place] [address] documented as of this encounter Visit Diagnoses Diagnosis Personal history of breast cancer- Primary Personal history of malignant neoplasm of breast documented in this encounter Care Teams Bisque Tile Burner Relationship Specialty Start Date End Date Nico, Fidencio Chowdhury MD [address] [place] [address] [place] [address] PCP - General General Internal Medicine 07/15/22 Miranda Menjivar MD 1401 [facility] [address] [place] [address] Referring Physician Cardiology 02/07/24 Kirsten Ku MD [facility]0 [facility] [address] [place] [id number] Hematology and Oncology 02/12/25 documented as of this encounter
--- OUTSIDE RECORDS SUMMARY | 2025-05-01 13:11 | XMS_ITS | Encounter Summary ---
Author Organization [facility] Address [address] [place] [address] Care Team Providers Care Change Control Analyst Name Role Phone Fidencio Walsh MD Primary Care Provider [phone] Reason for Visit * Reason Comments Med Refill Encounter Details Date Type Department Care Team (Late Contact Info) Description 03/28/2025 Refill [facility] [address] [place] [address] [place] [address] Fidencio Walsh MD [address] [place] [address] [place] [address] Seasonal allergic rhinitis due to pollen Social History Tobacco Use Types Packs/Day Years Used Date Smoking Tobacco: Former Cigarettes 1 1 966 - 1993 Passive Smoke Exposure: [...] Encounters Date Type Department Care Team (Late Contact Info) Description 06/20/2025 2:00 PM EDT Office Visit [facility] [address] [place] [address] [place] [address] Fidencio Walsh MD [address] [place] [address] documented as of this encounter Visit Diagnoses Diagnosis Seasonal allergic rhinitis due to pollen documented in this encounter Care Teams Change Control Analyst Relationship Specialty Start Date End Date Fidencio Walsh MD [address] [address] PCP - General Internal Medicine 08/09/22 documented as of this encounter
--- OUTSIDE RECORDS SUMMARY | 2025-05-01 13:11 | XMS_ITS | Encounter Summary ---
Author Organization [employer] ([place], [place], [place], [place]) Address [address] [place] [address] Care Team Providers Care Account Executive Sales Representative Name Role Phone Fidencio Walsh MD Primary Care Provider [phone] Miranda Menjivar MD Unavailable [phone] Kirsten Ku MD Unavailable [phone] Encounter Details Date Type Department Care Team (Late st Contact Info) Description 07/07/2021 Transcribed Document [facility] Family Medicine [address] [place] [address] ProviderNivia MD [address] [place] [address] Social History Tobacco Use Types [...] - Nivia ProviderMD - 07/07/2021 9:38 AM NEURODIAGNOSTIC TECHNICIAN MADIE Main OR PostOp Summary Primary Physician: GISSEL CLARK MD-SUR Finalized Date/Time: 07/07/21 11:41:26 Pt. Name: ALBA BENJAMIN D.O.B./Sex: 1950 Female Med Rec #: [id number] Physician: GISSEL CLARK MD-SUR Financial #: [id number] Pt. Type: O Room/Bed: [facility] Admit/Disch: 07/07/21 06:02:00 - Institution: [facility] Main OR PostOp Case Times Entry 1 In PACU II 07/07/21 11:10:00 Ready for PACU II 07/07/21 11:40:00 Discharge Discharge from PACU 07/07/21 11:40:00 II Last Modified By: Constance Juárez RN 07/07/21 11:41:25 [facility] Main OR PostOp Case Times Audit 07/07/21 11:41:25 Senior Pricing Analyst: OLIVIA Modifier: [email or web address] <+> 1 Ready for PACU II Discharge <+> 1 Discharge from PACU II Finalized By: Constance Juárez RN Document Signatures Signed By: Constance Juárez RN 07/07/21 11:41 Electronically signed by Julio Dickens [employer] Specialist Cerner at 12/13/2022 12:25 PM CDT documented in this encounter Plan of Treatment Upcoming Encounters Date Type Department Care Team (Late st Contact Info) Description 11/12/2025 1:00 PM EDT Office Visit [facility] Cardiology - [address] [place] [address] Alicia Cruz MD 211 [facility] [address] [place] [address] 11/21/2025 11:00 AM EDT Appointment [facility] 160 [facility] 101 [place] [address] Tonja Green PA-C [address] [place] [address] 300 [place] [address] 11/21/2025 12:00 PM EDT Appointment [facility] 160 [facility] 101 [place] [address] Gissel Clark MD 160 [address] [facility] 101 [place] [address] 11/21/2025 1:00 PM EDT Office Visit [facility] [address] [facility] 101 [place] [address] Gissel Clark MD [address] [facility] 101 [place] [address] 11/21/2025 3:00 PM EDT Office Visit [facility] - [place] [address] [place] [address] Kirsten Ku MD [facility] [address] [place] [address] documented as of this encounter Visit Diagnoses Not on filedocumented in this encounter Care Teams Account Executive Sales Representative Relationship Specialty Start Date End Date Nico, Fidencio Chowdhury MD [address] [place] [address] PCP - General General Internal Medicine 07/15/22 Miranda Menjivar MD [address] [facility] [address] [place], [place] [address] Referring Physician Cardiology 02/07/24 Kirsten Ku MD [facility] [address] [place] [address] Hematology and Oncology 02/12/25 documented as of this encounter
--- OUTSIDE RECORDS SUMMARY | 2025-05-01 13:11 | XMS_ITS | Encounter Summary ---
Author Organization [employer] ([place], [place], [place], [place]) Address [address] [place] [address] Care Team Providers Care Doctorate Of Chiropractic Name Role Phone Fidencio Walsh MD Primary Care Provider [phone] Miranda Menjivar MD Unavailable [phone] Kirsten Ku MD Unavailable [phone] Encounter Details Date Type Department Care Team (Late st Contact Info) Description 07/07/2021 Transcribed Document [facility] Family Medicine [address] [place] [address] ProviderNivia MD [address] [place] [address] Social History Tobacco Use Types Packs/Day Years Used Date Smoking Tobacco: Never Assessed Comments Unknown Sex and Gender Information Value Date Recorded Sex Assigned at Not on file Legal Sex Female 3:28 PM CDT Gender Identity Not on file Sexual Orientation Not on file documented as of this encounter Miscellaneous Notes * Cerner Conversion Note - Nivia Olmedo MD - 07/07/2021 9:38 AM STRATEGIC BUYER M[facility] Main OR PACU Summary Primary Physician: GISSEL CLARK MD-SUR Finalized Date/Time: 07/07/21 11:14:59 Pt. Name: ALBA BENJAMIN D.O.B./Sex: 1950 Female Med Rec #: [id number] Physician: GISSEL CLARK MD-SUR Financial #: [id number] Pt. Type: O Room/Bed: [facility] Admit/Disch: 07/07/21 06:02:00 - Institution: [facility] Main OR PACU Case Times Entry 1 In PACU I 07/07/21 10:18:00 Ready for PACU 07/07/21 11:07:00 Discharge Discharge from PACU 07/07/21 11:07:00 I Last Modified By: Bryan Campbell Rn 07/07/21 11:14:51 [facility] Main OR PACU Case Times Audit 07/07/21 11:14:51 Injury Prevention Coordinator: SETH Modifier: SETH <+> 1 Ready for PACU Discharge <+> 1 Discharge from PACU I Finalized By: Bryan Campbell, Rn Document Signatures Signed By: Bryan Campbell Rn 07/07/21 11:14 documented in this encounter Plan of Treatment Upcoming Encounters Date Type Department Care Team (Late st Contact Info) Description 11/12/2025 1:00 PM EDT Office Visit [facility] Cardiology - [address] [place] [address] Alicia Cruz MD [address] [facility] [address] [place] [address] 11/21/2025 11:00 AM EDT Appointment [facility] [address] [facility] [address] [place] [address] Tonja Green PA-C 0[address] [facility] 300 [place] [address] 11/21/2025 12:00 PM EDT Appointment [facility] [address] [facility] [address] [place] [address] Gissel Clark MD [address] [facility] 101 [place] [address] 11/21/2025 1:00 PM EDT Office Visit [facility] Breast [facility] 160 [facility] 101 [place] [address] Gissel Clark MD [address] [facility] 101 [place] [address] 11/21/2025 3:00 PM EDT Office Visit [facility] - [place] [address] [place] [address] [place] [address] [place] [address] [address] [place] [address] documented as of this encounter Visit Diagnoses Not on filedocumented in this encounter Care Teams Doctorate Of Chiropractic Relationship Specialty Start Date End Date West, Fidencio Chowdhury MD [address] [place] [address] [place] [address] PCP - General General Internal Medicine 07/15/22 Miranda Menjivar MD 1401 [facility] [address] [place], [place] [address] Referring Physician Cardiology 02/07/24 Kirsten Ku MD [facility] [address] [place] [address] Hematology and Oncology 02/12/25 documented as of this encounter
--- OUTSIDE RECORDS SUMMARY | 2025-05-01 13:11 | XMS_ITS | Encounter Summary ---
Author Organization [employer] ([place], [place], [place], [place]) Address [address] [place] [address] Care Team Providers Care Financial Auditor Name Role Phone Fidencio Walsh MD Primary Care Provider [phone] Miranda Menjivar MD Unavailable [phone] Kirsten Ku MD Unavailable [phone] Reason for Visit * Reason Comments New Med Request Encounter Details Date Type Department Care Team (Late st Contact Info) Description 09/19/2023 [facility] Cardiology - [address] [place] [address] Alicia Cruz MD [address] [place], [place] [id number] Social History Tobacco Use Types Packs/Day Years [...] Date Cl rded Speak language other than Haitian at home Not on file 09/07/2023 Want help with school or training Not on file 09/07/2023 Substance Use Answer Date Recorded Used prescription meds for non-medical reasons N ot on file 09/07/2023 Used illegal drugs past 12 months Not on file 09/07/2023 Comments Unknown Sex and Gender Information Value Date Recorded Sex Assigned at Not on file Legal Sex Female 3:28 PM CDT Gender Identity Not on file Sexual Orientation Not on file documented as of this encounter Plan of Treatment Upcoming Encounters Date Type Department Care Team (Late st Contact Info) Description 11/12/2025 1:00 PM EDT Office Visit [facility] Cardiology - [address] [place] [address] Alicia Cruz MD [address] [place] [address] 11/21/2025 11:00 AM EDT Appointment [facility] Breast [address] [place] [address] Tonja Green PA-C [address] [place] [address] [place] [address] 11/21/2025 12:00 PM EDT Appointment [facility] Breast [facility] 160 [facility] 101 [place] [address] Valentin Chaves MD 160 [facility] 101 [place] [address] 11/21/2025 1:00 PM EDT Office Visit [facility] Breast Surgery Clinic 160 [facility] 101 [place] [address] Valentin Chaves MD 160 [facility] 101 [place] [address] 11/21/2025 3:00 PM EDT Office Visit [facility] - [place] [address] [place] [address] Kirsten Ku MD [address] [place] [address] [place] [address] documented as of this encounter Visit Diagnoses Not on filedocumented in this encounter Care Teams Financial Auditor Relationship Specialty Start Date End Date Fidencio Walsh MD [address] [place] [address] [place] [address] PCP - General General Internal Medicine 07/15/22 Miranda Menjivar MD 1401 [facility] [address] [place] [address] Referring Physician Cardiology 02/07/24 Kirsten Ku MD [address] [facility] [address] [place] [address] Hematology and Oncology 02/12/25 documented as of this encounter
--- OUTSIDE RECORDS SUMMARY | 2025-05-01 13:11 | XMS_ITS | Encounter Summary ---
Author Organization [facility] Address [address] [place] [address] Care Team Providers Care Provider Relations Coordinator Name Role Phone Fidencio Walsh MD Primary Care Provider [phone] Encounter Details Date Type Department Care Team (Late st Contact Info) Description 04/18/2025 External PBMM Data [facility] [address] [facility] [place] [address] Pharmacy, Payor Data Social History Tobacco Use Types Packs/Day Years [...] Description 06/20/2025 2:00 PM EDT Office Visit [facility] PRIMARY CARE [address] [place] [address] [place] [address] Fidencio Walsh MD [address] [place] [address] [place] [address] documented as of this encounter Visit Diagnoses Not on filedocumented in this encounter Care Teams Provider Relations Coordinator Relationship Specialty Start Date End Date Fidencio Walsh MD [address] [place], [place] [address] PCP - General Internal Medicine 08/09/22 documented as of this encounter
--- OUTSIDE RECORDS SUMMARY | 2025-05-01 13:11 | XMS_ITS | Encounter Summary ---
Author Organization [employer] ([place], [place], [place], [place]) Address [address] [place] [address] Care Team Providers Care Education Liaison Name Role Phone Fidencio Walsh MD Primary Care Provider [phone] Miranda Menjivar MD Unavailable [phone] Kirsten Ku MD Unavailable [phone] Encounter Details Date Type Department Care Team (Late st Contact Info) Description 07/07/2021 Transcribed Document [facility] Family Medicine [address] [place] [address] ProviderNivia MD 123 [place] [address] Social History Tobacco Use Types Packs/Day Years Used Date Smoking Tobacco: Never Assessed Comments Unknown Sex and Gender Information Value Date Recorded Sex Assigned at Not on file Legal Sex Female 3:28 PM CDT Gender Identity Not on file Sexual Orientation Not on file documented as of this encounter Miscellaneous Notes * Cerner Conversion Note - Nivia ProviderMD - 07/07/2021 8:45 AM SUPERVISOR ESTIMATOR AND DRAFTER M[facility] Main OR PreOp Summary Primary Physician: GISSEL CLARK MD-SUR Finalized Date/Time: 07/07/21 09:17:15 Pt. Name: ALBA BENJAMIN D.O.B./Sex: 1950 Female Med Rec #: [id number] Physician: GISSEL CLARK MD-SUR Financial #: [id number] Pt. Type: O Room/Bed: [facility] Admit/Disch: 07/07/21 06:02:00 - Institution: [facility] PreOp Case Times Entry 1 In Preop 07/07/21 06:15:00 Ready for Holding n/a Room Patient Ready for 07/07/21 07:48:00 Surgery Patient Out of Preop 07/07/21 09:15:00 Patient Out of n/a Holding Room Last Modified By: SUZANNE ESPINOSA RN 07/07/21 09:17:12 [facility] PreOp Case Times Audit 07/07/21 09:17:12 Marketing Strategy Manager: [email or web address] Modifier: [email or web address] <+> 1 Patient Out of Preop 07/07/21 08:09:46 Marketing Strategy Manager: ELDERJM Modifier: [email or web address] <+> 1 Patient Ready for Surgery Finalized By: SUZANNE ESPINOSA, RN Document Signatures Signed By: SUZANNE ESPINOSA RN 07/07/21 09:17 Electronically signed by Man[facility] Conversion Command Post Craftsman Cerner at 12/13/2022 12:18 PM CDT documented in this encounter Plan of Treatment Upcoming Encounters Date Type Department Care Team (Late st Contact Info) Description 11/12/2025 1:00 PM EDT Office Visit [facility] Cardiology - [address] [place] [address] Alicia Cruz MD [address] [place] [address] 11/21/2025 11:00 AM EDT Appointment [facility] [address] [facility] [address] [place] [address] Tonja Green PA-C 10[address] [facility] 300 [place] [address] 11/21/2025 12:00 PM EDT Appointment [facility] [address] [facility] [address] [place] [address] Gissel Clark MD 160 [address] [facility] 101 [place] [address] 11/21/2025 1:00 PM EDT Office Visit [facility] 160 [facility] 101 [place] [address] Gissel Clark MD 160 [address] [facility] 101 [place] [address] 11/21/2025 3:00 PM EDT Office Visit [facility] - [place] [address] [facility] 300 [place] [address] Kirsten Ku MD [address] [place] [address] documented as of this encounter Visit Diagnoses Not on filedocumented in this encounter Care Teams Education Liaison Relationship Specialty Start Date End Date West, Fidencio Chowdhury MD [address] [place] [address] [place] [address] PCP - General General Internal Medicine 07/15/22 Miranda Menjivar MD 1401 [facility] [address] [place] [address] Referring Physician Cardiology 02/07/24 Kirsten Ku MD [address] [place] [address] Hematology and Oncology 02/12/25 documented as of this encounter
--- OUTSIDE RECORDS SUMMARY | 2025-05-01 13:11 | XMS_ITS | Encounter Summary ---
Author Organization [facility] Address [address] [place] [address] Care Team Providers Care Burlesque Dancer Name Role Phone Fidencio Walsh MD Primary Care Provider [phone] Reason for Visit * Reason Onset Date Comments REFERRAL 02/21/2025 Encounter Details Date Type Department Care Team (Late st Contact Info) Description 02/21/2025 Telephone [facility] PRIMARY CARE [address] [place] [address] [place] [address] Fidencio Walsh MD [address] [place] [address] [place] [address] REFERRAL Social History Tobacco Use Types Packs/Day Years [...] PM EDT documented as of this encounter Miscellaneous Notes * Telephone Encounter - Jose Cruz Sj Valdez Rep - 02/21/2025 4:25 PM EDT Caller: Alba Gerber Relationship: Self Best call back number: Telephone Information: What is the medical concern/diagnosis: PODIATRY What specialty or service is being requested: TOE NAILS What is the provider, practice or medical service name: [facility] WRAY What is the office location: [facility] What is the office phone number: Any additional details: documented in this encounter Plan of Treatment Upcoming Encounters Date Type Department Care Team (Late st Contact Info) Description 06/20/2025 2:00 PM EDT Office Visit [facility]IMARY [facility] [address] [place] [address] Fidencio Walsh MD [address] [place] [address] [place] [address] documented as of this encounter Visit Diagnoses Not on filedocumented in this encounter Care Teams Burlesque Dancer Relationship Specialty Start Date End Date Fidencio Walsh MD [address] [place] [address] PCP - General Internal Medicine 08/09/22 documented as of this encounter
--- OUTSIDE RECORDS SUMMARY | 2025-05-01 13:11 | XMS_ITS | Encounter Summary ---
Author Organization [facility] Address [address] [place] [address] Care Team Providers Care Pigment Grinder Name Role Phone Fidencio Walsh MD Primary Care Provider [phone] Encounter Details Date Type Department Care Team (Late st Contact Info) Description 03/21/2025 External PBMM Data [facility] CALL [facility]ENTER [address] [facility] [place] [address] Pharmacy, Payor Data Social History Tobacco Use [...] Description 06/20/2025 2:00 PM EDT Office Visit [facility] PRIMARY CARE [address] [place] [address] [place] [address] Fidencio Walsh MD [address] [place] [address] [place] [address] documented as of this encounter Visit Diagnoses Not on filedocumented in this encounter Care Teams Pigment Grinder Relationship Specialty Start Date End Date Fidencio Walsh MD [address] [place], [place] [address] PCP - General Internal Medicine 08/09/22 documented as of this encounter
--- OUTSIDE RECORDS SUMMARY | 2025-05-01 13:11 | XMS_ITS | Encounter Summary ---
Author Organization [facility] Address [address] [place] [address] Care Team Providers Care Manager Investigations Name Role Phone Fidencio Walsh MD Primary Care Provider [phone] Reason for Visit * Reason Comments Med Refill Encounter Details Date Type Department Care Team (Late Contact Info) Description 03/19/2025 Refill [facility] PRIMARY CARE [address] [place] [address] [place] [address] Fidencio Walsh MD [address] [place] [address] [place] [address] Seasonal allergic rhinitis due [...] Description 06/20/2025 2:00 PM EDT Office Visit [facility]IMARY [facility] [address] [place] [address] [place] [address] Fidencio Walsh MD [address] [place] [address] documented as of this encounter Visit Diagnoses Diagnosis Seasonal allergic rhinitis due to pollen documented in this encounter Care Teams Manager Investigations Relationship Specialty Start Date End Date Fidencio Walsh MD [address] [place] [address] PCP - General Internal Medicine 08/09/22 documented as of this encounter
--- OUTSIDE RECORDS SUMMARY | 2025-05-01 13:11 | XMS_ITS | Encounter Summary ---
Author Organization [facility] Address [address] [place] [id number] Care Team Providers Care Market Development Trainer Name Role Phone Fidencio Walsh MD Primary Care Provider [phone] Reason for Visit * Reason Comments Med Refill Encounter Details Date Type Department Care Team (Late st Contact Info) Description 04/09/2025 Refill [facility] PRIMARY CARE [address] [place] [address] [place] [address] Fidencio Walsh MD [address] [place] [address] [place] [address] Acquired hypothyroidism Social History Tobacco Use Types Packs/Day Years [...] encounter Miscellaneous Notes * Telephone Encounter - Tiffany Delgadillo MA - 04/09/2025 8:01 AM EDT Rx sent in for 88mcg of levothyroxine. documented in this encounter Plan of Treatment Upcoming Encounters Date Type Department Care Team (Late st Contact Info) Description 06/20/2025 2:00 PM EDT Office Visit [facility] PRIMARY CARE [address] [place] [id number] Fidencio Walsh MD [address] [place] [address] documented as of this encounter Visit Diagnoses Diagnosis Acquired hypothyroidism Unspecified hypothyroidism documented in this encounter Care Teams Market Development Trainer Relationship Specialty Start Date End Date Fidencio Walsh MD [address] [place] [address] PCP - General Internal Medicine 08/09/22 documented as of this encounter
--- OUTSIDE RECORDS SUMMARY | 2025-05-01 13:11 | XMS_ITS | Encounter Summary ---
Author Organization [employer] ([place], [place], [place], [place]) Address [address] [place] [address] Care Team Providers Care Insulator Tester Name Role Phone Fidencio Walsh MD Primary Care Provider [phone] Miranda Menjivar MD Unavailable [phone] Kirsten Ku MD Unavailable [phone] Encounter Details Date Type Department Care Team (Late st Contact Info) Description 07/07/2021 Transcribed Document [facility] Family Medicine [facility] [place] [address] ProviderNivia MD [address] [place] [address] Social History Tobacco Use Types Packs/Day Years Used Date Smoking Tobacco: Never Assessed Comments Unknown Sex and Gender Information Value Date Recorded Sex Assigned at Not on file Legal Sex Female 3:28 PM CDT Gender Identity Not on file Sexual Orientation Not on file documented as of this encounter Miscellaneous Notes * Cerner Conversion Note - Nivia Olmedo MD - 07/07/2021 8:40 AM ADVERTISING COPYWRITER Patient Education Materials Follows:and Gynecology Lumpectomy, Care After This sheet gives you information about how to care for yourself after your procedure. Your health care provider may also give you more specific instructions. If you have problems or questions, contact your health care provider. What can I expect after the procedure? After the procedure, it is common to have: ??? Breast swelling. ??? Breast tenderness. ??? Stiffness in your arm or shoulder. ??? A change in the shape and feel of your breast. ??? Scar tissue that feels hard to the touch in the area where the lump was removed. Follow these instructions at home: Medicines ??? Take stpc-xst-bpeioyf and prescription medicines only as told by your health care provider. ??? If you were prescribed an antibiotic medicine, take it as told by your health care provider. Do not stop taking the antibiotic even if you start to feel better. ??? Ask your health care provider if the medicine prescribed to you: ? Requires you to avoid driving or using heavy machinery. ? Can cause constipation. You may need to take these actions to prevent or treat constipation: ? Drink enough fluid to keep your urine pale yellow. ? Take mwdb-nyw-gzyowby or prescription medicines. ? Eat foods that are high in fiber, such as beans, whole grains, and fresh fruits and vegetables. ? Limit foods that are high in fat and processed sugars, such as fried or sweet foods. Incision care ??? Follow instructions from your health care provider about how to take care of your incision. Make sure you: ? Wash your hands with soap and water before and after you change your bandage (dressing). If soap and water are not available, use hand construction supervisor/carpenter. ? Change your dressing as told by your health care provider. ? Leave stitches (sutures), skin glue, or adhesive strips in place. These skin closures may need to stay in place for 2 weeks or longer. If adhesive strip edges start to loosen and curl up, you may trim the loose edges. Do not remove adhesive strips completely unless your health care provider tells you to do that. ??? Check your incision area every day for signs of infection. Check for: ? More redness, swelling, or pain. ? Fluid or blood. ? Warmth. ? Pus or a bad smell. ??? Keep your dressing clean and dry. ??? If you were sent home with a surgical drain in place, follow instructions from your health care provider about emptying it. Bathing ??? Do not take baths, swim, or use a hot tub until your health care provider approves. ??? Ask your health care provider if you may take showers. You may only be allowed to take sponge baths. Activity ??? Rest as told by your health care provider. ??? Avoid sitting for a long time without moving. Get up to take short walks every 1?2 hours. This is important to improve blood flow and breathing. Ask for help if you feel weak or unsteady. ??? Return to your normal activities as told by your health care provider. Ask your health care provider what activities are safe for you. ??? Be careful to avoid any activities that could cause an injury to your arm on the side of your surgery. ??? Do not lift anything that is heavier than 10 lb (4.5 kg), or the limit that you are told, until your health care provider says that it is safe. Avoid lifting with the arm that is on the side of your surgery. ??? Do not carry heavy objects on your shoulder on the side of your surgery. ??? Do exercises to keep your shoulder and arm from getting stiff and swollen. Talk with your health care provider about which exercises are safe for you. General instructions ??? Wear a supportive bra as told by your health care provider. ??? Raise (elevate) your arm above the level of your heart while you are sitting or lying down. ??? Do not wear tight jewelry on your arm, wrist, or fingers on the side of your surgery. ??? Keep all follow-up visits as told by your health care provider. This is important. ? You may need to be screened for extra fluid around the lymph nodes and swelling in the breast and arm (lymphedema). Follow instructions from your health care provider about how often you should be checked. ??? If you had any lymph nodes removed during your procedure, be sure to tell all of your health care providers. This is important information to share before you are involved in certain procedures, such as having blood tests or having your blood pressure taken. Contact a health care provider if: ??? You develop a rash. ??? You have a fever. ??? Your pain medicine is not working. ??? You have swelling, weakness, or numbness in your arm that does not improve after a few weeks. ??? You have new swelling in your breast. ??? You have any of these signs of infection: ? More redness, swelling, or pain in your incision area. ? Fluid or blood coming from your incision. ? Warmth coming from the incision area. ? Pus or a bad smell coming from your incision. Get help right away if you have: ??? Very bad pain in your breast or arm. ??? Swelling in your legs or arms. ??? Redness, warmth, or pain in your leg or arm. ??? Chest pain. ??? Difficulty breathing. Summary ??? After the procedure, it is common to have breast tenderness, swelling in your breast, and stiffness in your arm and shoulder. ??? Follow instructions from your health care provider about how to take care of your incision. ??? Do not lift anything that is heavier than 10 lb (4.5 kg), or the limit that you are told, until your health care provider says that it is safe. Avoid lifting with the arm that is on the side of your surgery. ??? If you had any lymph nodes removed during your procedure, be sure to tell all of your health care providers. This is important information to share before you are involved in certain procedures, such as having blood tests or having your blood pressure taken. This information is not intended to replace advice given to you by your health care provider. Make sure you discuss any questions you have with your health care provider. Document Revised: 02/18/2020 Document Reviewed: 02/18/2020 [employer] Patient Education ? 2020 [employer]. Pharmacology General Anesthesia, Adult, Care After This sheet gives you information about how to care for yourself after your procedure. Your health care provider may also give you more specific instructions. If you have problems or questions, contact your health care provider. What can I expect after the procedure? After the procedure, the following side effects are common: ??? Pain or discomfort at the IV site. ??? Nausea. ??? Vomiting. ??? Sore throat. ??? Trouble concentrating. ??? Feeling cold or chills. ??? Weak or tired. ??? Sleepiness and fatigue. ??? Soreness and body aches. These side effects can affect parts of the body that were not involved in surgery. Follow these instructions at home: For at least 24 hours after the procedure: ??? Have a responsible adult stay with you. It is important to have someone help care for you until you are awake and alert. ??? Rest as needed. ??? Do not: ? Participate in activities in which you could fall or become injured. ? Drive. ? Use heavy machinery. ? Drink alcohol. ? Take sleeping pills or medicines that cause drowsiness. ? Make important decisions or sign legal documents. ? Take care of children on your own. Eating and drinking ??? Follow any instructions from your health care provider about eating or drinking restrictions. ??? When you feel hungry, start by eating small amounts of foods that are soft and easy to digest (bland), such as toast. Gradually return to your regular diet. ??? Drink enough fluid to keep your urine pale yellow. ??? If you vomit, rehydrate by drinking water, juice, or clear broth. General instructions ??? If you have sleep apnea, surgery and certain medicines can increase your risk for breathing problems. Follow instructions from your health care provider about wearing your sleep device: ? Anytime you are sleeping, including during daytime naps. ? While taking prescription pain medicines, sleeping medicines, or medicines that make you drowsy. ??? Return to your normal activities as told by your health care provider. Ask your health care provider what activities are safe for you. ??? Take yxjr-xer-bmjonnt and prescription medicines only as told by your health care provider. ??? If you smoke, do not smoke without supervision. ??? Keep all follow-up visits as told by your health care provider. This is important. Contact a health care provider if: ??? You have nausea or vomiting that does not get better with medicine. ??? You cannot eat or drink without vomiting. ??? You have pain that does not get better with medicine. ??? You are unable to pass urine. ??? You develop a skin rash. ??? You have a fever. ??? You have redness around your IV site that gets worse. Get help right away if: ??? You have difficulty breathing. ??? You have chest pain. ??? You have blood in your urine or stool, or you vomit blood. Summary ??? After the procedure, it is common to have a sore throat or nausea. It is also common to feel tired. ??? Have a responsible adult stay with you for the first 24 hours after general anesthesia. It is important to have someone help care for you until you are awake and alert. ??? When you feel hungry, start by eating small amounts of foods that are soft and easy to digest (bland), such as toast. Gradually return to your regular diet. ??? Drink enough fluid to keep your urine pale yellow. ??? Return to your normal activities as told by your health care provider. Ask your health care provider what activities are safe for you. This information is not intended to replace advice given to you by your health care provider. Make sure you discuss any questions you have with your health care provider. Document Revised: 08/18/2018 Document Reviewed: 03/31/2018 [email or web address] Patient Education ? 2020 [employer] documented in this encounter Plan of Treatment Upcoming Encounters Date Type Department Care Team (Late st Contact Info) Description 11/12/2025 1:00 PM EDT Office Visit [facility] Cardiology - [address] [place] [id number] Alicia Cruz MD [address] [place] [address] 11/21/2025 11:00 AM EDT Appointment [facility] [address] [facility] [address] [place] [address] Tonja Green PA-C [address] [facility] [address] [place] [address] 11/21/2025 12:00 PM EDT Appointment [facility] [address] [facility] [address] [place] [address] Valentin Chaves MD [address] [place] [address] 11/21/2025 1:00 PM EDT Office Visit [facility] [address] [place] [address] Valentin Chaves MD [address] [place] [address] 11/21/2025 3:00 PM EDT Office Visit [facility] - [address] [facility] [address] [place] [phone] Kirsten Ku MD [address] [place] [address] [address] [place] [address] documented as of this encounter Visit Diagnoses Not on filedocumented in this encounter Care Teams Insulator Tester Relationship Specialty Start Date End Date West, Fidencio Chowdhury MD [address] [place] [address] [place] [address] PCP - General General Internal Medicine 07/15/22 Miranda Menjivar MD [address] [facility] [address] [place] [address] Referring Physician Cardiology 02/07/24 Kirsten Ku MD [facility] [address] [place] [address] Hematology and Oncology 02/12/25 documented as of this encounter
--- OUTSIDE RECORDS SUMMARY | 2025-05-01 13:11 | XMS_ITS | Encounter Summary ---
Author Organization [facility] Address [address] [place] [address] Care Team Providers Care Shrub Grower Name Role Phone Fidencio Walsh MD Primary Care Provider [phone] Reason for Visit * Reason Comments Med Refill Encounter Details Date Type Department Care Team (Late Contact Info) Description 03/25/2025 Refill [facility] [address] [place] [address] [place] [address] Fidencio Walsh MD [address] [place] [address] [place] [address] Acquired hypothyroidism Social History Tobacco Use Types Packs/Day Years Used Date Smoking Tobacco: Former Cigarettes 09 25 1 966 - 1993 Passive Smoke Exposure: [...] Description 06/20/2025 2:00 PM EDT Office Visit [facility] [address] [place] [address] [place] [address] Fidencio Walsh MD [address] [place] [address] [place] [address] documented as of this encounter Visit Diagnoses Diagnosis Acquired hypothyroidism Unspecified hypothyroidism documented in this encounter Care Teams Shrub Grower Relationship Specialty Start Date End Date Fidencio Walsh MD [address] [place] [address] PCP - General Internal Medicine 08/09/22 documented as of this encounter
--- OUTSIDE RECORDS SUMMARY | 2025-05-01 13:11 | XMS_ITS | Encounter Summary ---
Author Organization [facility] Address [address] [place] [id number] Care Team Providers Care Hydrology Professor Name Role Phone Fidencio Walsh MD Primary Care Provider [phone] Reason for Visit * Reason Onset Date Comments Results 03/25/2025 Encounter Details Date Type Department Care Team (Late st Contact Info) Description 03/25/2025 Telephone [facility] [address] [place] [address] [place] [address] Fidencio Walsh MD [address] [place] [address] Results Social History Tobacco Use Types Packs/Day [...] Miscellaneous Notes * Telephone Encounter - Tiffany Delgdaillo MA - 03/26/2025 12:13 PM EDT I have left a voicemail in the office to get labs. * Telephone Encounter - Fidencio Walsh MD - 03/26/2025 7:50 AM EDT As we do not see these labs in our system yet, we will request the labs to be able to review at an appointment to go over what ever was requested by her hematology provider [facility]. * Telephone Encounter - Tiffany Delgadillo MA - 03/25/2025 5:24 PM EDT Patient states [facility] office is sending labs for us to look at and book appointment to go over somewith her as well and possibly further testing * Telephone Encounter - Tiffany Delgadillo MA - 03/25/2025 5:07 PM EDT I have left a vm for patient to call office regarding this. * Telephone Encounter - Dean Zuniga RegSched Rep - 03/25/2025 3:12 PM EDT Caller: BuzzPrettyhy Relationship: Self Best call back number: [phone] Caller requesting test results: PT What test was performed: BLOOD WORK When was the test performed: 03-22-25 Where was the test performed: DR ELA COX Additional notes: PT WOULD LIKE A CALL TO DISCUSS TEST RESULTS WHEN THEY ARRIVE FROM DR MAHMOOD'S OFFICE. documented in this encounter Plan of Treatment Upcoming Encounters Date Type Department Care Team (Late st Contact Info) Description 06/20/2025 2:00 PM EDT Office Visit [facility] [address] [place] [address] [place] [address] Fidencio Walsh MD [address] [place] [address] documented as of this encounter Visit Diagnoses Not on filedocumented in this encounter Care Teams Hydrology Professor Relationship Specialty Start Date End Date Fidencio Walsh MD [address] [place] [address] PCP - General Internal Medicine 08/09/22 documented as of this encounter
--- OUTSIDE RECORDS SUMMARY | 2025-05-01 13:11 | XMS_ITS | Encounter Summary ---
Author Organization [employer] ([place], [place], [place], [place]) Address [address] [place] [address] Care Team Providers Care Lumber Piler Name Role Phone Fidencio Walsh MD Primary Care Provider [phone] Miranda Menjivar MD Unavailable [phone] Kirsten Ku MD Unavailable [phone] Reason for Referral * Mammography (Routine) - Closed Specialty Diagnoses / Procedures Referred By Deniz t Referred To Contact Diagnoses Personal history of breast cancer Procedures MM digital mammo diagnostic with doc bilateral Valentin Chaves MD [address] [place] [address] Phone: tel: fax: Referral ID Status Reason Start Date Expiration Date Visits Re quested Visits Authorized [id number] Closed 07/15/2022 01/11/2023 1 1 Encounter Details Date Type Department Care Team (Late st Contact Info) Description 07/14/2022 Outside Orders [facility] [address] [place] [address] Valentin Chaves MD [address] [place] [address] Personal history of breast cancer [...] Description 11/12/2025 1:00 PM EDT Office Visit [facility] Cardiology - [address] [place] [address] Alicia Cruz MD [address] [place] [address] 11/21/2025 11:00 AM EDT Appointment [facility] [address] [facility] [address] [place] [address] Tonja Green PA-C [address] [facility] 300 [place] [address] 11/21/2025 12:00 PM EDT Appointment [facility] 160 [facility] 101 [place] [address] Valentin Chaves MD [address] [facility] 101 [place] [address] 11/21/2025 1:00 PM EDT Office Visit [facility] [address] [facility] [address] [place] [address] Valentin Chaves MD [address] [facility] [address] [place] [address] 11/21/2025 3:00 PM EDT Office Visit [facility] - [address] [address] [place] [address] Kirsten Ku MD [address] [place] [address] documented as of this encounter Results * MM digital mammo diagnostic with doc bilateral (07/15/2022 3:02 PM EST) Anatomical Region Laterality Modality Breast Bilateral Mammography 07/15/2022 3:17 PM EST Impressions 07/15/2022 3:31 PM EST FINAL IMPRESSION: ACR BI-RADS 2: Benign findings. RECOMMENDATIONS: Bilateral diagnostic mammogram in 12 months. The results and recommendations were discussed with the patient on the day of the appointment. In addition, a written report in lay terms was given to the patient. Density notification was included for patients with pattern 3 or 4 breast tissue. At our facility, a [place] marker is positioned over a visible skin lesion and a linear marker is used to indicate a scar. A triangular marker is placed on a palpable finding. Narrative 07/15/2022 3:31 PM EST PROCEDURES: Bilateral diagnostic mammogram with digital tomosynthesis (DBT) REASON FOR EXAM: History of right breast DCIS. The patient is status post lumpectomy in 2020. FAMILY HISTORY: There is weak family history of breast cancer COMPARISON STUDIES: 2019 and 2020 from [facility] FINDINGS: Today's mammogram consisted of bilateral craniocaudad and mediolateral oblique views obtained in 2D and Digital Breast Tomosynthesis (DBT) modes. Also, C-views were reconstruct full size true lateral view as well as CC spot compression view of the right breast. D from the 3D acquisition. The breast tissue has pattern b (scattered fibroglandular densities). Residual density and architectural distortion are present in the posterior aspect of the right upper inner quadrant within the lumpectomy site. Barely perceptible intramammary lymph node is noted at 3:00 position in the same breast. The left breast has been stable and unremarkable. Mammographic exam was reviewed with the benefit of computed aided detection. Procedure Note Magdalene Horton MD - 07/15/2022 PROCEDURES: Bilateral diagnostic mammogram with digital tomosynthesis (DBT) REASON FOR EXAM: History of right breast DCIS. The patient is status post lumpectomy in 2020. FAMILY HISTORY: There is weak family history of breast cancer COMPARISON STUDIES: 2019 and 2020 from [facility] FINDINGS: Today's mammogram consisted of bilateral craniocaudad and mediolateral oblique views obtained in 2D and Digital Breast Tomosynthesis (DBT) modes. Also, C-views were reconstruct full size true lateral view as well as CC spot compression view of the right breast. D from the 3D acquisition. The breast tissue has pattern b (scattered fibroglandular densities). Residual density and architectural distortion are present in the posterior aspect of the right upper inner quadrant within the lumpectomy site. Barely perceptible intramammary lymph node is noted at 3:00 position in the same breast. The left breast has been stable and unremarkable. Mammographic exam was reviewed with the benefit of computed aided detection. IMPRESSION: FINAL IMPRESSION: ACR BI-RADS 2: Benign findings. RECOMMENDATIONS: Bilateral diagnostic mammogram in 12 months. The results and recommendations were discussed with the patient on the day of the appointment. In addition, a written report in lay terms was given to the patient. Density notification was included for patients with pattern 3 or 4 breast tissue. At our facility, a [place] marker is positioned over a visible skin lesion and a linear marker is used to indicate a scar. A triangular marker is placed on a palpable finding. us Valentin Chaves MD IMG MAMMOGRAPHY ORDERABLES F inal Result documented in this encounter Visit Diagnoses Diagnosis Personal history of breast cancer- Primary Personal history of malignant neoplasm of breast Personal history of breast cancer Personal history of malignant neoplasm of breast documented in this encounter Care Teams Lumber Piler Relationship Specialty Start Date End Date Fidencio Walsh MD [address] [place] [address] [place] [address] PCP - General General Internal Medicine 07/15/22 Miranda Menjivar MD [address] [facility] [address] [place] [address] Referring Physician Cardiology 02/07/24 Kirsten Ku MD [address] [place] [address] Hematology and Oncology 02/12/25 documented as of this encounter
--- OUTSIDE RECORDS SUMMARY | 2025-05-01 13:11 | XMS_ITS | Encounter Summary ---
Author Organization [facility] ([place], [place], [place], [place]) Address [address] [place] [address] Care Team Providers Care Filler Shredder Helper Name Role Phone Fidencio Walsh MD Primary Care Provider Miranda Menjivar MD Unavailable Kirsten Ku MD Unavailable [phone] Encounter Details Date Type Department Care Team (Late st Contact Info) Description 07/07/2021 Transcribed Document [facility] [place] [address] [place] [address] Valentin Chaves MD [address] [place] [address] [id number] Social History Tobacco Use Types Packs/Day Years Used Date Smoking Tobacco: Never Assessed Comments Unknown Sex and Gender Information Value Date Recorded Sex Assigned at Not on file Legal Sex Female 3:28 PM CDT Gender Identity Not on file Sexual Orientation Not on file documented as of this encounter Miscellaneous Notes * Cerner Conversion Note - Valentin Chaves MD - 07/07/2021 1:18 PM EST DATE OF PROCEDURE: 07/07/2021 SURGEON: Valentin Chaves MD PREOPERATIVE DIAGNOSIS: Right breast ductal carcinoma in situ. POSTOPERATIVE DIAGNOSIS: Right breast ductal carcinoma in situ PROCEDURE PERFORMED: Right needle localized partial mastectomy. MOTOR ANALYST: Stevo Carrillo PA-C. ANESTHESIA: General. ESTIMATED BLOOD LOSS: Minimal. COMPLICATIONS: None. OPERATIVE INDICATIONS: Ms. Gerber is a 71-year-old female patient, who was recently diagnosed with a small area of right breast DCIS. She requested breast conserving surgery. After the risks and benefits of this operative intervention were explained to her, she wished to proceed. OPERATIVE FINDINGS: She had an approximately 3 cm area of residual calcifications needle localized in the upper right breast. DESCRIPTION OF PROCEDURE: After obtaining informed consent, Ms. Gerber was taken to the operative room and placed in supine position. General anesthesia was induced. Her right breast was prepped and draped in usual sterile fashion. Attention was turned to the needle localization wires. A small skin incision was made adjacent to the wires and dissection down to the breast tissue was achieved using electrocautery. Next, electrocautery was used to excise the breast tissue surrounding the needle localization wires circumferentially and with adequate margins. The specimen was removed and oriented with a short stitch superiorly and long stitch laterally. It was further marked with black ink deep. It was passed off and sent to the [facility] for specimen mammogram. Intraoperative confirmation confirmed that the residual calcifications and biopsy clip were contained within the specimen. The lumpectomy cavity was then carefully inspected. There was no further breast tissue along the deep margin along the pectoralis major muscle. Meticulous hemostasis was ensured. The skin incision was then closed in 2 layers followed by Dermabond. All sponge, needle, and instrument counts were correct at the end of the procedure. There were no complications. Ms. Gerber tolerated the procedure well. Finally, Ms. Gerber was extubated and taken to the PACU in stable condition. /[id number] MD MILDRED Bond/STALIN / MILDRED / MODL /[id number] CC: [facility] documented in this encounter Plan of Treatment Upcoming Encounters Date Type Department Care Team (Late [facility] Description 11/12/2025 1:00 PM EDT Office Visit [facility] Cardiology - [address] [place] [address] Alicia Cruz MD [phone] 11/21/2025 11:00 AM EDT Appointment [facility] Breast [address] [place] [address] Tonja Green PA-C [address] [facility] [address] [place] [address] 11/21/2025 12:00 PM EDT Appointment [facility] [address] [facility] [address] [place] [address] Valentin Chaves MD 160 [facility] [phone] 11/21/2025 1:00 PM EDT Office Visit [facility] [address] [place] [address] [address] [place] [address] Valentin Chaves MD [address] [address] 11/21/2025 3:00 PM EDT Office Visit [facility] - [place] [address] [facility] [address] [place] [address] Kirsten Ku MD [address] [facility] [phone] documented as of this encounter Visit Diagnoses Not on filedocumented in this encounter Care Teams Filler Shredder Helper Relationship Specialty Start Date End Date [place], Fidencio Chowdhury MD [address] [place] [address] [place] [address] PCP - General General Internal Medicine 07/15/22 Miranda Menjivar MD [address] [facility] [address] [place] [address] Referring Physician Cardiology 02/07/24 Kirsten Ku MD [address] [facility] [address] [place] [phone] Hematology and Oncology 02/12/25 documented as of this encounter
--- OUTSIDE RECORDS SUMMARY | 2025-05-01 13:11 | XMS_ITS | Encounter Summary ---
Author Organization [employer] ([place], [place], [place], [place]) Address [address] [place] [address] Care Team Providers Care Campground Manager Name Role Phone Fidencio Walsh MD Primary Care Provider [phone] Miranda Menjivar MD Unavailable [phone] Kirsten Ku MD Unavailable [phone] Encounter Details Date Type Department Care Team (Late st Contact Info) Description 07/07/2021 Transcribed Document [facility] Family Medicine [address] [place] [address] ProviderNivia MD [address] [place] [address] Social History Tobacco Use Types Packs/Day Years Used Date Smoking Tobacco: Never Assessed Comments Unknown Sex and Gender Information Value Date Recorded Sex Assigned at Not on file Legal Sex Female 3:28 PM CDT Gender Identity Not on file Sexual Orientation Not on file documented as of this encounter Miscellaneous Notes * Cerner Conversion Note - Nivia Olmedo MD - 07/07/2021 11:18 AM SADDLE MAKER [address] [address] ALBA BENJAMIN :1950 Visit Time:07/07/2021 What to do next Your Diagnosis Calculus of gallbladder without cholecystitis without obstruction, Calculus of gallbladder without cholecystitis without obstruction Instructions From Your Care Team Activity as tolerated Diet as tolerated Monitor incision for signs of infection You prescriptions have been sent to your local pharmacy. equipment maintenance supervisor and take as prescribed Notify MD of fever of 101 or higher Shower in 24 hours, DO NOT scrub wound Wear supportive bra with no wires at all times except to shower Follow-Up Appointments Follow Up with GISSEL CLARK MD-VAIBHAV When 07/16/2021 10:[address] [facility] Where: [address] [facility] [address] [place] [address]- Medications What How Much When Instructions Next Dose acetaminophen-oxyCODONE (Percocet 5/ 325 oral tablet) 2 Tablet(s) Oral Every 4 Hours as needed for for pain Duration: 5 Day(s) Max 6 tabs per day. Pickup at [facility] #[id number] amitriptyline (amitriptyline 25 mg oral tablet) Oral At Bedtime aspirin 81 Milligram(s) atorvastatin (atorvastatin 40 mg oral tablet) Oral Every Day carvedilol (carvedilol 3.125 mg oral tablet) 1 Tablet(s) Oral Two Times A Day levothyroxine (levothyroxine 112 mcg (0.112 mg) oral tablet) 1 Tablet(s) Oral Every Day losartan (losartan 25 mg oral tablet) 0.5 Tablet(s) Oral Every Day Pharmacy Information [facility] #[id number]: [address] [phone] Take your medications faithfully. Do NOT skip medication. Do NOT stop taking medications without the direction of a physician. Carry a list of your medications with you at all times, and take this medication list with you to your first follow up visit. Report any side effects. Avoid herbal remedies unless discussed with your physician. As part of your treatment plan, your physician may have prescribed a limited course of a controlled substance. This medication may be given to help people with moderate or severe pain or for other medical conditions, but there are risks involved with treatment. Common side effects may include nausea, constipation, drowsiness, sweating, itching, dry mouth, and rash. More serious side effects may include cognitive and motor impairment, like problems with thinking, concentrating, alertness, and movement (e.g. slowed reflexes), and driving and operating heavy machinery can be dangerous. It is important for you to talk to your physician if you have these side effects or questions. These controlled substances can produce physical dependence and be habit-forming if taken for an extended period of time, which means that the body has gotten used to them and may experience withdrawal symptoms if they are abruptly stopped. Withdrawal symptoms can include runny nose, sweating, goose bumps, diarrhea, abdominal cramping, rapid heartbeat, difficulty sleeping, and nervousness. Please dispose of unused and medications per pharmacy guidance. Education Materials Lumpectomy, Care After This sheet gives you [...] these instructions at home: Medicines ??? Take zyvx-ozk-disiwtg and prescription medicines only as told by [...] keep your urine pale yellow. ? Take wvii-wwa-xmzsjpd or prescription medicines. ? Eat foods that [...] and water are not available, use hand trailer sections assembler. ? Change your dressing as told by [...] Get up to take short walks every 1???2 hours. This is important to improve blood [...] provider. Document Revised: 02/18/2020 Document Reviewed: 02/18/2020 [employer] Patient Education ?? 2020 [employer]. General Anesthesia, Adult, Care After This sheet [...] activities are safe for you. ??? Take xptb-puz-xvgcwnc and prescription medicines only as told by [...] provider. Document Revised: 08/18/2018 Document Reviewed: 03/31/2018 [employer] Patient Education ?? 2020 [employer]. acetaminophen and oxycodone (a SEET a MIN oh fen and OX i KOE done) Endocet 10/325, Endocet 2.5/325, Endocet 5/325, Endocet 7.5/325, Nalocet, Percocet, Primlev What is the most important information I should know about acetaminophen and oxycodone? MISUSE OF OPIOID MEDICINE CAN CAUSE ADDICTION, OVERDOSE, OR . Keep the medication in a place where others cannot get to it. Taking opioid medicine during may cause life-threatening withdrawal symptoms in the . Fatal side effects can occur if you use opioid medicine with alcohol, or with other drugs that cause drowsiness or slow your breathing. Stop taking this medicine and call your doctor right away if you have skin redness or a rash that spreads and causes blistering and peeling. What is acetaminophen and oxycodone? Acetaminophen and oxycodone is a combination medicine used to relieve moderate to severe pain. Acetaminophen and oxycodone contains an opioide medicine and may be habit-forming. Acetaminophen and oxycodone may also be used for purposes not listed in this medication guide. What should I discuss with my healthcare provider before taking acetaminophen and oxycodone? You should not use this medicine if you are allergic to acetaminophen or oxycodone, or if you have: ?? severe asthma or breathing problems; or ?? a blockage in your stomach or intestines. Tell your doctor if you have ever had: ?? breathing problems, sleep apnea; ?? liver disease; ?? a drug or alcohol addiction; ?? kidney disease; ?? a head injury or seizures; ?? urination problems; or ?? problems with your thyroid, pancreas, or gallbladder. If you use opioid medicine while you are , your baby could become dependent on the drug. This can cause life-threatening withdrawal symptoms in the baby after it is born. Babies born dependent on opioids may need medical treatment for several weeks. Ask a doctor before using opioid medicine if you are . Tell your doctor if you notice severe drowsiness or slow breathing in the nursing baby. How should I take acetaminophen and oxycodone? Follow all directions on your prescription label. Never take this medicine in larger amounts, or for longer than prescribed. An overdose can damage your liver or cause . Tell your doctor if you feel an increased urge to use more of this medicine. Never share opioid medicine with another person, especially someone with a history of drug abuse or addiction. MISUSE CAN CAUSE ADDICTION, OVERDOSE, OR . Keep the medicine in a place where others cannot get to it. Selling or giving away opioid medicine is against the law. Measure liquid medicine carefully. Use the dosing syringe provided, or use a medicine dose-measuring device (not a kitchen spoon). If you need surgery or medical tests, tell the doctor ahead of time that you are using this medicine. You should not stop using this medicine suddenly. Follow your doctor's instructions about tapering your dose. Store at room temperature away from moisture and heat. Keep track of your medicine. You should be aware if anyone is using it improperly or without a prescription. Do not keep leftover opioid medication. Just one dose can cause in someone using this medicine accidentally or improperly. Ask your pharmacist where to locate a drug take-back disposal program. If there is no take-back program, flush the unused medicine down the toilet. What happens if I miss a dose? Since this medicine is used for pain, you are not likely to miss a dose. Skip any missed dose if it is almost time for your next dose. Do not use two doses at one time. What happens if I overdose? Seek emergency medical attention or call the Poison Help line at . An overdose of this medicine can be fatal, especially in a child or other person using the medicine without a prescription. Overdose symptoms may include nausea, vomiting, sweating, severe drowsiness, pinpoint pupils, slow breathing, or no breathing. Your doctor may recommend you get naloxone (a medicine to reverse an opioid overdose) and keep it with you at all times. A person caring for you can give the naloxone if you stop breathing or don't wake up. Your caregiver must still get emergency medical help and may need to perform CPR (cardiopulmonary resuscitation) on you while waiting for help to arrive. Anyone can buy naloxone from a pharmacy or local health department. Make sure any person caring for you knows where you keep naloxone and how to use it. What should I avoid while taking acetaminophen and oxycodone? Avoid driving or operating machinery until you know how this medicine will affect you. Dizziness or drowsiness can cause falls, accidents, or severe injuries. Do not drink alcohol. Dangerous side effects or could occur. Ask a doctor or pharmacist before using any other medicine that may contain acetaminophen (sometimes abbreviated as APAP). Taking certain medications together can lead to a fatal overdose. What are the possible side effects of acetaminophen and oxycodone? Get emergency medical help if you have signs of an allergic reaction: hives; difficulty breathing; swelling of your face, lips, tongue, or throat. Opioid medicine can slow or stop your breathing, and may occur. A person caring for you should give naloxone and/or seek emergency medical attention if you have slow breathing with long pauses, blue colored lips, or if you are hard to wake up. In rare cases, acetaminophen may cause a severe skin reaction that can be fatal. This could occur even if you have taken acetaminophen in the past and had no reaction. Stop taking this medicine and call your doctor right away if you have skin redness or a rash that spreads and causes blistering and peeling. Call your doctor at once if you have: ?? noisy breathing, sighing, shallow breathing, breathing that stops; ?? a light-headed feeling, like you might pass out; ?? weakness, tiredness, fever, unusual bruising or bleeding; ?? confusion, unusual thoughts or behavior; ?? problems with urination; ?? liver problems--nausea, upper stomach pain, tiredness, loss of appetite, dark urine, phoenix-colored stools, jaundice (yellowing of the skin or eyes); ?? low cortisol levels-- nausea, vomiting, loss of appetite, dizziness, worsening tiredness or weakness; or ?? high levels of serotonin in the body--agitation, hallucinations, fever, sweating, shivering, fast heart rate, muscle stiffness, twitching, loss of coordination, nausea, vomiting, diarrhea. Serious breathing problems may be more likely in older adults and in those who are debilitated or have wasting syndrome or chronic breathing disorders. Common side effects include: ?? dizziness, drowsiness, feeling tired; ?? feelings of extreme happiness or sadness; ?? nausea, vomiting, stomach pain; ?? constipation; or ?? headache. This is not a complete list of side effects and others may occur. Call your doctor for medical advice about side effects. You may report side effects to FDA at 1-032-XYI-4196. What other drugs will affect acetaminophen and oxycodone? You may have breathing problems or withdrawal symptoms if you start or stop taking certain other medicines. Tell your doctor if you also use an antibiotic, antifungal medication, heart or blood pressure medication, seizure medication, or medicine to treat HIV or hepatitis C. Opioid medication can interact with many other drugs and cause dangerous side effects or . Be sure your doctor knows if you also use: ?? cold or allergy medicines, bronchodilator asthma/COPD medication, or a diuretic ('water pill'); ?? medicines for motion sickness, irritable bowel syndrome, or overactive bladder; ?? other opioids--opioid pain medicine or prescription cough medicine; ?? a sedative like Valium--diazepam, alprazolam, lorazepam, Xanax, Klonopin, Versed, and others; ?? drugs that make you sleepy or slow your breathing--a sleeping pill, muscle relaxer, medicine to treat mood disorders or mental illness; ?? drugs that affect serotonin levels in your body--a stimulant, or medicine for depression, Parkinson's disease, migraine headaches, serious infections, or nausea and vomiting. This list is not complete. Other drugs may affect acetaminophen and oxycodone, including prescription and ejzs-cuy-yobrcvr medicines, vitamins, and herbal products. Not all possible interactions are listed here. Where can I get more information? Your doctor or pharmacist can provide more information about acetaminophen and oxycodone. Remember, keep this and all other medicines out of the reach of children, never share your medicines with others, and use this medication only for the indication prescribed. Every effort has been made to ensure that the information provided by [employer]. ('[employer]') is accurate, up-to-date, and complete, but no guarantee is made to that effect. Drug information contained herein may be time sensitive. [employer] information has been compiled for use by healthcare practitioners and consumers in the [place] and therefore [employer] does not warrant that uses outside of the [place] are appropriate, unless specifically indicated otherwise. [employer] drug information does not endorse drugs, diagnose patients or recommend therapy. [employer] drug information is an informational resource designed to assist licensed healthcare practitioners in caring for their patients and/or to serve consumers viewing this service as a supplement to, and not a substitute for, the expertise, skill, knowledge and judgment of healthcare practitioners. The absence of a warning for a given drug or drug combination in no way should be construed to indicate that the drug or drug combination is safe, effective or appropriate for any given patient. [employer] does not assume any responsibility for any aspect of healthcare administered with the aid of information [employer] provides. The information contained herein is not intended to cover all possible uses, directions, precautions, warnings, drug interactions, allergic reactions, or adverse effects. If you have questions about the drugs you are taking, check with your doctor, nurse or pharmacist. Copyright 0625-0203 [employer]. Version: 20.03. Revision Date: 10/03/2020. Emergency Awareness and Preventative Care STROKE is an EMERGENCY Every Minute Counts Act FAST and Check for these signs: FACE Does the face look uneven? ARM Does one arm drift down? SPEECH Does their speech sound strange? TIME Call at any sign of stroke Stroke Risk Factors Atrial Fibrillation (irregular heartbeat) Diabetes Family history of stroke Heart Disease Heavy alcohol use High Blood Pressure High Cholesterol Physical inactivity and obesity Smoking Cigarette Smoking The facts are clear, cigarette smoking will shorten your life. Smoking can cause many illnesses along the way. As a healthcare provider, we recommend that you stop smoking. Assistance with quitting is available by contacting 0-440-NGPI-NOW. This is a free resource providing counseling, support, and referral. Or you may contact your personal physician. [employer] Suicide Prevention Lifeline: The National Suicide Prevention Lifeline is a national network of local crisis centers that provides free and confidential emotional support to people in suicidal crisis or emotional distress 24 hours a day, 7 days a week. Don't Wait! Stop a Heart Attack Before it Starts What is a heart attack? A heart attack is damage or to a part of the heart from severely decreased or lack of blood flow to the heart. Over time, arteries can become narrow from the buildup of fat and cholesterol, which is called plaque. The plaque can rupture causing a blood clot to form. When the blood clot forms, the artery can become severely narrowed or completely blocked, causing a heart attack. Heart attack is the leading cause of in the [place]. 85% of muscle damage occurs within the first 2 hours. Delay in the recognition of heart attack symptoms increases the chances of . Know the early symptoms of a heart attack: Nausea Feeling of fullness in chest Jaw Pain Pain that travels down one or both arms Fatigue/being tired Anxiety Back Pain Chest pressure, squeezing, or discomfort Shortness of breath Sweating, or a cold sweat Feeling of impending doom There are unusual signs of a heart attack, too! Women, the elderly, and diabetics may present with atypical symptoms: Fainting/dizziness Weakness Confusion Risk Factors for a Heart Attack Some heart disease risk factors, such as age and family history, cannot be changed. Others, like smoking and lack of exercise, can be changed. Smoking High Cholesterol High Blood Pressure Family History Obesity Age Gender (Males are at higher risk) Lack of Exercise Diabetes Diet Stress Excessive Alcohol Intake If you or someone you know is experiencing the signs and symptoms of a heart attack, DON???T DELAY. Call immediately and seek help. If someone collapses, perform CPR! Do not attempt to drive if you are having symptoms of heart attack. Hands-Only CPR Why Hands-Only CPR? Hands-Only CPR has been shown to be as effective as conventional CPR for cardiac arrests that occur outside of a hospital. Survival depends on immediately receiving CPR from someone nearby. How do you perform Hands-Only CPR? There are two easy steps: Call 04-29-1 if you see a teen or adult collapse Push hard and fast in the center of the chest at a beat of 100 beats per minute. Save a life! 4 WAYS TO GET AHEAD OF SEPSIS SEPSIS is a MEDICAL EMERGENCY. Time matters! Infections put you and your family at risk for a life-threatening condition called sepsis. Sepsis is the body's extreme response to an infection. It is life-threatening, and without timely treatment, sepsis can rapidly lead to tissue damage, organ failure, and . Sepsis happens when an infection you already have-in your skin, lungs, urinary tract or somewhere else-triggers a chain reaction throughout your body. 1 PREVENT INFECTIONS Take good care of chronic conditions. Talk to your doctor about getting the recommended vaccines. 2 PRACTICE GOOD HYGIENE Wash your hands frequently. Keep cuts or open sores clean and covered until they are healed. 3 KNOW THE SYMPTOMS Confusion or disorientation Shortness of breath High heart rate Fever, shivering, or feeling very cold Extreme pain or discomfort Clammy or sweaty skin 4 ACT FAST Get medical care IMMEDIATELY if you suspect sepsis or if you have an infection that is not getting better or is getting worse. To learn more about sepsis and how to prevent infections, visit www.cdc.gov/sepsis. Test Results Laboratory or Other Results This Visit (last charted value for your 07/07/2021 visit) Microbiology 07/03/2021 4:00 PM SARS-CoV-2 (COVID19 PCR): Negative Mammography 07/07/2021 10:07 AM MY Surgical Specimen: MY Surgical Specimen 07/07/2021 9:32 AM MY XR GD Ndl Loc RT: MY XR GD Ndl Loc RT Patient Name:ALBA BENJAMIN Florentino I have received this information and was given the opportunity to ask questions. Patient/Ophthalmic Medical Technologist Name: Patient/Ophthalmic Medical Technologist Signature: Relationship to Patient: Clinician/Hospital Ophthalmic Medical Technologist Signature: Date: documented in this encounter Plan of Treatment Upcoming Encounters Date Type Department Care Team (Late st Contact Info) Description 11/12/2025 1:00 PM EDT Office Visit [facility] Cardiology - [facility] [address] [place] [address] Alicia Cruz MD [address] [facility] [address] [place] [address] 11/21/2025 11:00 AM EDT Appointment [facility] [address] [place] [address] Tonja Green PA-C [address] [facility] [address] [place] [address] 11/21/2025 12:00 PM EDT Appointment [facility] [address] [facility] [address] [place] [address] Gissel Clark MD [address] [facility] [address] [place] [address] 11/21/2025 1:00 PM EDT Office Visit [facility] [address] [place] [address] Gissel Clark MD [address] [facility] [address] [place] [address] 11/21/2025 3:00 PM EDT Office Visit [facility] [address] [place], [place] [address] [address] [place] [id number] Kirsten Ku MD [address] [place] [phone] documented as of this encounter Visit Diagnoses Not on filedocumented in this encounter Care Teams Campground Manager Relationship Specialty Start Date End Date Pierz, Fidencio Chowdhury MD [address] [place] [address] [place] [address] PCP - General General Internal Medicine 07/15/22 Miranda Menjviar MD [address] [facility] [address] [place], [place] [id number] Referring Physician Cardiology 02/07/24 Kirsten Ku MD [address] [place] [address] [address] [place], [place] [id number] Hematology and Oncology 02/12/25 documented as of this encounter
--- OUTSIDE RECORDS SUMMARY | 2025-05-01 13:11 | XMS_ITS | Encounter Summary ---
Author Organization [facility] Address [address] [place] [address] Care Team Providers Care Plating Equipment Tender Name Role Phone Fidencio Walsh MD Primary Care Provider [phone] Reason for Visit * Reason Onset Date Comments ED - Called Back For Treatment Only 02/19/2025 Encounter Details Date Type Department Care Team (Late st Contact Info) Description 02/19/2025 Results Follow-Up [facility] [address] [place] [address] [place] [address] Fidencio Walsh MD [address] [place] [address] [place] [address] ED - Called Back For Treatment Only Social History Tobacco Use Types Packs/Day Years [...] encounter Miscellaneous Notes * Telephone Encounter - Courtney Billingsley RegSched Rep - 02/21/2025 4:28 PM EDT Caller: Alba Gerber Relationship: Self Best call back number: Telephone Information: What was the call regarding: PATIENT WOULD LIKE A CALL BACK TO GO OVER THESE TEST AGAIN documented in this encounter Plan of Treatment Upcoming Encounters Date Type Department Care Team (Late st Contact Info) Description 06/20/2025 2:00 PM EDT Office Visit [facility] [address] [address] Fidencio Walsh MD [address] [address] documented as of this encounter Visit Diagnoses Not on filedocumented in this encounter Care Teams Plating Equipment Tender Relationship Specialty Start Date End Date Fidencio Walsh MD [address] [address] PCP - General Internal Medicine 08/09/22 documented as of this encounter
--- OUTSIDE RECORDS SUMMARY | 2025-05-01 13:11 | XMS_ITS | Encounter Summary ---
Author Organization [facility] Address [address] [place] [address] Care Team Providers Care Investment Executive Name Role Phone Fidencio Walsh MD Primary Care Provider [phone] Reason for Visit * Reason Comments Med Refill Encounter Details Date Type Department Care Team (Late Contact Info) Description 04/09/2025 Refill [facility] [address] [place] [address] [place] [address] Fidencio Walsh MD [address] [place] [address] [place] [address] Seasonal allergic rhinitis due [...] Description 06/20/2025 2:00 PM EDT Office Visit [facility] [address] [place] [address] [place] [address] Fidencio Walsh MD [address] [place] [address] documented as of this encounter Visit Diagnoses Diagnosis Seasonal allergic rhinitis due to pollen documented in this encounter Care Teams Investment Executive Relationship Specialty Start Date End Date Fidencio Walsh MD [address] [place] [address] PCP - General Internal Medicine 08/09/22 documented as of this encounter
--- OUTSIDE RECORDS SUMMARY | 2025-05-01 13:11 | XMS_ITS | Encounter Summary ---
Author Organization [facility] Address [address] [place] [address] Care Team Providers Care Public Health Advisor Name Role Phone Fidencio Walsh MD Primary Care Provider [phone] Reason for Visit * Reason Onset Date Comments Med Refill 09/28/2023 Encounter Details Date Type Department Care Team (Late st Contact Info) Description 09/28/2023 Refill [facility] [address] [place] [address] [place] [address] Fidencio Walsh MD [address] [place] [address] [place] [address] Social History Tobacco Use Types Packs/Day Years Used Date Smoking Tobacco: Former Cigarettes 1 1 966 - 1993 Passive Smoke Exposure: Past Smokeless Tobacco: Never Alcohol Use Standard Drinks/Week Comments Never 0 (1 standard drink = 0.6 oz pur e alcohol) PHQ-2 Answer Date Recorded Retired PHQ-9: Brief Depression Severity Measure Score 0 08/02/2023 PHQ-2 Answer Date Recorded Retired PHQ-9: Brief Depression Severity Measure Score 0 08/02/2023 Comments Unknown Sex and Gender Information Value Date Recorded Sex Assigned at Female 02/03/2023 2:56 PM EDT Legal Sex Female 4:45 PM EDT Gender Identity Female 02/03/2023 2:56 PM EDT Sexual Orientation Straight 02/03/2023 2: 56 PM EDT documented as of this encounter Miscellaneous Notes * Telephone Encounter - José Miguel Rodriguez RegSched Rep - 09/28/2023 1:36 PM EST Caller: Alba Gerber Relationship: Self Best call back number: [phone] Requested Prescriptions: Requested Prescriptions Pending Prescriptions Disp Refills anastrozole (ARIMIDEX) 1 MG tablet Pharmacy where request should be sent: [id number] - [place], [place] - [address] [address] [address] [address] - [phone] - [phone] FX Last office visit with prescribing clinician: 08/02/2023 Last telemedicine visit with prescribing clinician: Visit date not found Next office visit with prescribing clinician: 11/01/2023 Additional details provided by patient: ALBA HAS NONE LEFT, NEEDS A SCRIPT SENT TO [facility], PLEASE SEND FOR 90 DAYS. Does the patient have less than a 3 day supply: [x] Yes [] No Would you like a call back once the refill request has been completed: [x] Yes [] No If the office needs to give you a call back, can they leave a voicemail: [] Yes [] No Sj Weston Rep 09/28/23 13:37 EST documented in this encounter Plan of Treatment Upcoming Encounters Date Type Department Care Team (Late st Contact Info) Description 06/20/2025 2:00 PM EDT Office Visit [facility] [address] [place] [address] [place] [phone] Fidencio Walsh MD [address] [place] [address] [place] [address] documented as of this encounter Visit Diagnoses Not on filedocumented in this encounter Care Teams Public Health Advisor Relationship Specialty Start Date End Date Fidencio Walsh MD [address] [place] [address] [place] [address] PCP - General Internal Medicine 08/09/22 documented as of this encounter
--- OUTSIDE RECORDS SUMMARY | 2025-05-01 13:11 | XMS_ITS | Encounter Summary ---
Author Organization [facility] Address [address] [place] [address] Care Team Providers Care Neurodiagnostic Technician Name Role Phone Fidencio Walsh MD Primary Care Provider [phone] Encounter Details Date Type Department Care Team (Latest Contact Info) Description 04/04/2025 Travel Social History Tobacco Use Types Packs/Day [...] Description 06/20/2025 2:00 PM EDT Office Visit [facility] [address] [place] [address] [place] [address] [facility]encio [facility] [address] documented as of this encounter Visit Diagnoses Not on filedocumented in this encounter Care Teams Neurodiagnostic Technician Relationship Specialty Start Date End Date Fidencio Walsh MD [facility] [phone] PCP - General Internal Medicine 08/09/22 documented as of this encounter
--- OUTSIDE RECORDS SUMMARY | 2025-05-01 13:11 | XMS_ITS | Encounter Summary ---
Author Organization [facility] ([place], [place], [place], [place]) Address [address] [place] [address] Care Team Providers Care Whizzer Hand Name Role Phone Fidencio Walsh MD Primary Care Provider [phone] Miranda Menjivar MD Unavailable [phone] Kirsten Ku MD Unavailable [phone] Encounter Details Date Type Department Care Team (Late st Contact Info) Description 07/07/2021 Transcribed Document [facility] [place] [address] ProviderNivia MD [address] [place], [place] [address] Social History Tobacco Use Types Packs/Day Years Used Date Smoking Tobacco: Never Assessed Comments Unknown Sex and Gender Information Value Date Recorded Sex Assigned at Not on file Legal Sex Female 3:28 PM CDT Gender Identity Not on file Sexual Orientation Not on file documented as of this encounter Miscellaneous Notes * Cerner Conversion Note - Nivia ProviderMD - 07/07/2021 7:57 AM DISTRICT PLANT SUPERVISOR Spiritual Care Assessment Entered On: 07/07/2021 9:56 EST Performed On: 07/07/2021 7:57 EST by MIGUEL GALE Chaplain General Information Initial Visit : Yes Referred by : Nurse Referral Reason Comment : pre-surgery prayer Ministry Provided to : Patient Spiritual/Emotional Acuity : Low Spiritual Framework : Well integrated, provides significant strength/resource Presybeterian Preference : Congregational MIGUEL GALE Chaplain - 07/07/2021 9:53 EST Spiritual Assessment Patient's Community/Relationship : Strength in patient's life Supportive/Healthy Relationships : Yes Patient's Sense of Meaning : Strength in patient's life Patient's Concept of God/the Sacred : Strength in patient's life God/the Spiritual Gives Strength : Yes Spiritual Assessment Comment/Summary Points : Pre-surgery visit to patient; she was somewhat apprehensive about her surgery, but ready to get rid of the lump. She is hopeful that this procedure will get rid of anything cancerous and that she will not need any further treatments. Prayed with patient for her surgery and health. Spirital Assessment Comment/Summary Report : SPIRITUAL ASSESSMENT COMMENT/SUMMARY No qualifying data available. MIGUEL GALE Chaplain - 07/07/2021 9:53 EST Interventions Emotional Support : Empathic/Engaged listening, Established trust, Feelings expressed, Hope strengths identified, Meaning strengths identified, Relationship strengths identified Spiritual and Presybeterian : God/the Spiritual connection/strengths identified, Prayer shared MIGUEL GALE Chaplain - 07/07/2021 9:53 EST Electronically signed by Julio Dickens Conversion Customer Success Representative Cerner at 12/13/2022 12:28 PM CDT documented in this encounter Plan of Treatment Upcoming Encounters Date Type Department Care Team (Late st Contact Info) Description 11/12/2025 1:00 PM EDT Office Visit [facility] Cardiology - [address] [place] [address] Alicia Cruz MD [address] [place] [address] 11/21/2025 11:00 AM EDT Appointment [facility] [address] [facility] [address] [place] [address] Tonja Green PA-C [address] [facility] [address] [place] [address] 11/21/2025 12:00 PM EDT Appointment [facility] [address] [facility] [address] [place] [address] Valentin Chaves MD [address] [facility] [address] [place] [address] 11/21/2025 1:00 PM EDT Office Visit [facility] [address] [place] [facility] [address] [place] [address] Valentin Chaves MD [address] [facility] [address] [facility] [address] [place] [address] 11/21/2025 3:00 PM EDT Office Visit [facility] - [address] [address] [address] [facility] [address] [place] [address] Kirsten Ku MD [address] [place] [id number] documented as of this encounter Visit Diagnoses Not on filedocumented in this encounter Care Teams Whizzer Hand Relationship Specialty Start Date End Date [place], Fidencio Chowdhuyr MD [address] [place] [address] [place] [address] PCP - General General Internal Medicine 07/15/22 Miranda Menjivar MD [address] [facility] [address] [place] [address] Referring Physician Cardiology 02/07/24 Kirsten Ku MD [address] [place] [id number] Hematology and Oncology 02/12/25 documented as of this encounter
--- OUTSIDE RECORDS SUMMARY | 2025-05-01 13:11 | XMS_ITS | Encounter Summary ---
Author Organization [facility] Address [address] [place] [address] Care Team Providers Care Carbon Furnace Operator Name Role Phone Fidencio Walsh MD Primary Care Provider [phone] Encounter Details Date Type Department Care Team (Late st Contact Info) Description 03/26/2025 Results Follow-Up [facility] [address] [place] [address] Fidencio Walsh MD [address] [place] [address] [place] [address] Social History Tobacco Use Types Packs/Day [...] Telephone Encounter - Tiffany Delgadillo MA - 03/26/2025 1:57 PM EDT I have made a follow up documented in this encounter Plan of Treatment Upcoming Encounters Date Type Department Care Team (Late st Contact Info) Description 06/20/2025 2:00 PM EDT Office Visit [facility] [address] [place] [address] Fidencio Walsh MD [address] [place] [address] documented as of this encounter Visit Diagnoses Not on filedocumented in this encounter Care Teams Carbon Furnace Operator Relationship Specialty Start Date End Date Fidencio Walsh MD [address] [address] PCP - General Internal Medicine 08/09/22 documented as of this encounter
--- OUTSIDE RECORDS SUMMARY | 2025-05-01 13:11 | XMS_ITS | Clinical Summary ---
Author Organization [facility] Address [address] [place] [address] Care Team Providers Care Aviation Metalsmith Name Role Phone Unavailable Primary Care Provider Unavailabl e Social History Tobacco Use Types Packs/Day Years Used Date Smoking Tobacco: Every Day Alcohol Use Standard Drinks/Week Comments Yes 0 (1 standard drink = 0.6 oz pure alcohol) Alcoholic Drinks/day: Social alcohol use Comments Unknown Sex and Gender Information Value Date Recorded Sex Assigned at Not on file Legal Sex Female 6:30 PM EDT Gender Identity Not on file Sexual Orientation Not on file Last Filed Vital Signs Vital Sign Reading Time Taken Comments Blood Pressure - - Pulse - - Temperature - - Respiratory Rate - - Oxygen Saturation - - Inhaled Oxygen Concentration - - Weight 75.4 kg (166 lb 4 oz) 06/19/2014 3:51 PM EDT Height 160 cm (5' 3 ) 06/19/2014 3:51 PM EDT Body Mass Index 29.45 06/19/2014 3:51 PM EDT Plan of Treatment Not on file
--- OUTSIDE RECORDS SUMMARY | 2025-05-01 13:11 | XMS_ITS | Encounter Summary ---
Author Organization [facility] Address [address] [place] [address] Care Team Providers Care Ambulatory Analyst Name Role Phone Fidencio Walsh MD Primary Care Provider [phone] Encounter Details Date Type Department Care Team (Late st Contact Info) Description 04/05/2025 Results Follow-Up [facility] [address] [place] [address] [place] [address] Fidencio Walsh MD [address] [place] [address] [place] [address] Social History Tobacco Use Types Packs/Day [...] PM EDT documented as of this encounter Progress Notes * Fidencio Walsh MD - 04/05/2025 4:54 PM EDT Prescription for Jardiance 10 mg daily sent into pharmacy. documented in this encounter Plan of Treatment Upcoming Encounters Date Type Department Care Team (Late st Contact Info) Description 06/20/2025 2:00 PM EDT Office Visit [facility] [address] [place] [address] Fidencio Walsh MD [address] [place] [address] documented as of this encounter Visit Diagnoses Not on filedocumented in this encounter Care Teams Ambulatory Analyst Relationship Specialty Start Date End Date Fidencio Walsh MD [address] [place] [address] PCP - General Internal Medicine 08/09/22 documented as of this encounter
--- OUTSIDE RECORDS SUMMARY | 2025-05-01 13:11 | XMS_ITS | Encounter Summary ---
Author Organization [facility] ([place], [place], [place], [place]) Address [address] [place] [address] Care Team Providers Care Mixed Livestock Farmer Name Role Phone Fidencio Walsh MD Primary Care Provider [phone] Miranda Menjivar MD Unavailable [phone] Kirsten Ku MD Unavailable [phone] Encounter Details Date Type Department Care Team (Late st Contact Info) Description 07/07/2021 Transcribed Document [facility] Family Medicine [facility] [place] [address] ProviderNivia MD [address] [place] [address] Social History Tobacco Use Types Packs/Day Years Used Date Smoking Tobacco: Never Assessed Comments Unknown Sex and Gender Information Value Date Recorded Sex Assigned at Not on file Legal Sex Female 3:28 PM CDT Gender Identity Not on file Sexual Orientation Not on file documented as of this encounter Miscellaneous Notes * Cerner Conversion Note - Nivia ProviderMD - 07/07/2021 7:52 AM SCHOOL HEALTH ASSISTANT PAT Adult Entered On: 07/07/2021 7:57 EST Performed On: 07/07/2021 7:52 EST by SUZANNE ESPINOSA RN Vital Measurements Temperature Source : Oral Temperature Mode : Fahrenheit Temperature, Fahrenheit : 98.1 Deg F Clinical Temperature, C : 36.7 Deg C Pulse Method : Pulse Oximetry Pulse Source : Radial, Right Peripheral Pulse Rate : 58 bpm (LOW) Pulse Rhythm : Regular Respiratory Rate : 16 Breaths/Min Blood Pressure Location : Arm, left upper Blood Pressure Source : Non-Invasive BP Device Blood Pressure Position : Side, Left Systolic Blood Pressure : 164 mmHg (HI) Diastolic Blood Pressure : 74 mmHg Oxygen Saturation : 99 % Oxygen Therapy Mode : Room air SUZANNE ESPINOSA RN - 07/07/2021 7:59 EST Pain Assessment Pain Assessment : Initial assessment Pain Scale Used : 0-10 Scale SUZANNE ESPINOSA RN - 07/07/2021 7:52 EST Height and Weight, Clinical Dosing Height Source : Stated Height Entry Format : [place] Height, Feet : 5 ft(Converted to: 152 cm, 60 Inch) Height, Inches : 4 Inch(Converted to: 0 ft 4 Inch, 10.16 cm) Clinical Height : 162.56 cm Weight Source : Standing scale Weight Entry Format : [place] Clinical Dosing Weight : 76.36 kg Weight, Pounds : 168 lb Body Surface Area (BSA) : 1.82 m2 Body Mass Index : 28.9 kg/m2 (HI) [place] Body Weight : 54 kg SUZANNE ESPINOSA RN - 07/07/2021 7:52 EST Health Histories Smoking Status : Former smoker, quit more than 30 days ago Smokeless Tobacco Status : Never SUZANNE ESPINOSA RN - 07/07/2021 7:52 EST Social History (As Of: 07/07/2021 08:04:01 EST) Tobacco: Former smoker, quit more than 30 days ago Smoking Status. Never Smokeless Tobacco Status. Years of Use: 25. Packs/Tins Daily: 2. Last Used: Quit in 1993. (Last Updated: 05/30/2018 11:59:47 EDT by MORENA ANDERSON, KATHERYN) Alcohol: Alcohol Use History No. (Last Updated: 05/30/2018 11:59:55 EDT by MORENA ANDERSON, KATHERYN) Substance Abuse: Drug Use Hx: No. Use in Last 12 Months: No. (Last Updated: 05/30/2018 12:00:00 EDT by MORENA ANDERSON, KATHERYN) Nutrition/Health: Caffeine intake amount: 2-3 cups a day.. (Last Updated: 05/30/2018 12:00:07 EDT by MORENA ANDERSON, KATHERYN) Infectious Disease History Does patient have symptoms of COVID-19? : No Has the Patient Been Tested for COVID-19 in the last 14 days? : Yes, Patient stated results Negative Does the Patient state known exposure to a COVID-19 positive case in the last 14 days? : No Patient Vaccinated for COVID-19 : Fully vaccinated SUZANNE ESPINOSA RN - 07/07/2021 7:59 EST Infectious Disease Risk Screening Grid Cough < 2 wks of unknown origin : NO Cough > 2 weeks : NO Blood in Sputum : NO Fever or self-reported Fever : NO Rash of unknown origin : NO Headache : NO Stiff neck : NO Night Sweats : NO Unexplained Weight Loss : NO Diarrhea (3 episode per day) : NO SUZANNE ESPINOSA RN - 07/07/2021 7:59 EST Patient Masked? : Yes Physical contact outside [place] in the last 30 days : No Hospitalized in Foreign Country : No Infectious Disease History : Chicken pox/Shingles, Influenza, Measles, MRSA, Mumps, Rubella, Other: [place] Exposure to Contagious Illness : No INF Disease TB Screening Calc : 0 INF Disease Recent Travel Calc : 0 SUZANNE ESPINOSA RN - 07/07/2021 7:59 EST COVID19 PreProcedure Screening Is this an Emergent or Add on Procedure? : No Date PreProcedure COVID-19 test known? : Yes Date of PreProcedure COVID-19 : 07/03/2021 EDT Has patient been isolated since the test : Yes Exposed to COVID19 symptoms since test? : No SUZANNE ESPINOSA RN - 07/07/2021 7:59 EST Anesthesia/Transfusion History Family History of Anesthesia Reaction : No prior transfusion(s) Transfusion History : Prior anesthesia without reaction Family History of Anesthesia Reaction : Other: Mother hard to wake up. SUZANNE ESPINOSA RN - 07/07/2021 7:52 EST Functional Assessment Functional ADL Evaluation Index EBN Bathing : Independent (2) Dressing : Independent (2) Toileting : Independent (2) Transferring Bed or Chair : Independent (2) Continence : Independent (2) Feeding : Independent (2) SUZANNE ESPINOSA RN - 07/07/2021 7:52 EST ADL Index Score : 12 SUZANNE ESPINOSA RN - 07/07/2021 7:52 EST Advance Directive Patient has Advance Directive *Q : No, patient refuses Advance Directive information SUZANNE ESPINOSA RN - 07/07/2021 7:52 EST Spiritual/Cultural Needs Any Spiritual/Cultural Needs or Requests : Yes SUZANNE ESPINOSA RN - 07/07/2021 7:52 EST [place] Suicide Severity Rating Scale (C-SSRS) CSSRS Past Month Wish to be : No CSSRS Past Month Suicidal Thoughts : No CSSRS Lifetime Suicide Behavior : No Suicide Severity Rating Score : 0 Suicide Severity Rating : No Additional Care Required at this time Thoughts of Harming/Killing Others : No SUZANNE ESPINOSA RN - 07/07/2021 7:59 EST Psychosocial History Currently in Unsafe Situation : No Do You Have a Support System? : Yes SUZANNE ESPINOSA RN - 07/07/2021 7:59 EST Teaching/Learning Assessment Barriers To Learning : None evident Individuals Taught : Patient, Child Readiness to Learn : Cooperative Baseline Knowledge of Topic : Good Readiness to Learn : Explanation, Printed materials Learning Style Preferences Patient : Printed materials, Verbal explanation Learning Style Preferences Family : Printed materials, Verbal explanation SUZANNE ESPINOSA RN - 07/07/2021 7:59 EST Education Topics, Periop Preadmission Perioperative Education Grid Arrival Time/Place : Verbalizes understanding Falls : Verbalizes understanding IV's : Verbalizes understanding NPO Status/Directions : Verbalizes understanding Pain Management : Verbalizes understanding Preprocedure Preparations : Verbalizes understanding Preprocedure Tests/Labs : Verbalizes understanding Responsible Adult : Verbalizes understanding Take/Hold Medications Pre-Procedure : Verbalizes understanding SUZANNE ESPINOSA RN - 07/07/2021 7:59 EST General Info Arrived From : Home Mode of Arrival on Unit : Ambulatory Patient Arrival Date/Time : 07/07/2021 6:15 EST Legal Guardian : Daughter Want Family/Rep/Phys Notified of Admit : No Emergency Contact #1 : . Emergency Contact #1 Phone Number : . Emergency Contact #1 Relationship : . Emergency Contact #2 : . Emergency Contact #2 Phone Number : . Emergency Contact #2 Relationship : . Information Obtained From : Patient Primary Language : Azeri Preferred Communication Mode : Verbal Communication Barrier : None Mechanical Engineering Coop Needed : No Currently Lactating : No Status : N/A SUZANNE ESPINOSA RN - 07/07/2021 7:59 EST Hernando Scale [place] Sensory Perception : No impairment [place] Moisture : Rarely moist [place] Activity : Walks frequently [place] Mobility : No limitation Hern[place] Nutrition : Excellent Hern[place] Friction and Shear : No apparent problem Hernando Score : 23 SUZANNE ESPINOSA RN - 07/07/2021 7:59 EST Sleep Apnea Risk Assmt Reason BiPAP/CPAP Not Used at Home : PT UNABLE TO USE SUZANNE ESPINOSA RN - 07/07/2021 7:59 EST BiPAP/CPAP Ordered for Home Use : Yes Hx of Obstructive Sleep Apnea Diagnosis : Yes BiPAP/CPAP Used at Home : No Age over 50 Years Old : Yes Gender Male : No SUZANNE ESPINOSA RN - 07/07/2021 7:52 EST Pain Scale Intensity : 0 SUZANNE ESPINOSA RN - 07/07/2021 7:52 EST Image 4 - Images currently included in the form version of this document have not been included in the text rendition version of the form. Electronically signed by Julio Dickens Conversion Center Human Resources Manager Cerner at 12/13/2022 12:38 PM CDT documented in this encounter Plan of Treatment Upcoming Encounters Date Type Department Care Team (Late st Contact Info) Description 11/12/2025 1:00 PM EDT Office Visit [facility] Cardiology - [address] [place] [address] Alicia Cruz MD [address] [facility] [address] [place] [address] 11/21/2025 11:00 AM EDT Appointment [facility] [address] [facility] 101 [place] [address] Tonja Green PA-C [address] [place] [address] [address] [place] [address] 11/21/2025 12:00 PM EDT Appointment [facility] [address] [facility] [address] [place] [address] Valentin Chaves MD [address] [facility] [address] [place] [address] 11/21/2025 1:00 PM EDT Office Visit [facility] [address] [facility] [address] [place] [address] Valentin Chaves MD [address] [facility] 101 [place] [address] 11/21/2025 3:00 PM EDT Office Visit [facility] - [place] [address] [place] [address] Kirsten Ku MD [address] [facility] [address] [place], [place] [id number] documented as of this encounter Visit Diagnoses Not on filedocumented in this encounter Care Teams Mixed Livestock Farmer Relationship Specialty Start Date End Date [place], Fidencio Chowdhury MD [address] [place] [address] [place] [address] PCP - General General Internal Medicine 07/15/22 Miranda Menjivar MD [address] [facility] [address] [place], [place] [id number] Referring Physician Cardiology 02/07/24 Kirsten Ku MD [address] [facility] [address] [place] [address] Hematology and Oncology 02/12/25 documented as of this encounter
--- OUTSIDE RECORDS SUMMARY | 2025-05-01 13:11 | XMS_ITS | Encounter Summary ---
Author Organization [facility] Address [address] [place] [address] Care Team Providers Care Public Health Inspector Name Role Phone Fidencio Walsh MD Primary Care Provider [phone] Reason for Visit * Reason Onset Date Comments Med Refill 04/17/2025 Encounter Details Date Type Department Care Team (Late st Contact Info) Description 04/17/2025 Refill [facility] [address] [place] [address] [place] [address] Fidencio Walsh MD [address] [place] [address] [place] [address] Social History Tobacco Use Types Packs/Day [...] encounter Miscellaneous Notes * Telephone Encounter - Michael Bustamante RegSched Rep - 04/17/2025 10:09 AM EDT Caller: Alba Gerber Relationship: Self Best call back number: [phone] Requested Prescriptions: Requested Prescriptions Pending Prescriptions Disp Refills carvedilol (COREG) 12.5 MG tablet Sig: Take 1 tablet by mouth 2 (Two) Times a Day With Meals. coenzyme Q10 100 MG capsule Pharmacy where request should be sent: [facility] [address] [phone] [facility] [phone] FX Last office visit with prescribing clinician: 04/04/2025 Last telemedicine visit with prescribing clinician: Visit date not found Next office visit with prescribing clinician: 06/20/2025 Does the patient have less than a 3 day supply: [x] Yes [] No Sj Singh Rep 04/17/25 10:10 EDT documented in this encounter Plan of Treatment Upcoming Encounters Date Type Department Care Team (Late st Contact Info) Description 06/20/2025 2:00 PM EDT Office Visit [facility] [address] [place] [phone] Fidencio Walsh MD [address] [place] [address] [place] [address] documented as of this encounter Visit Diagnoses Not on filedocumented in this encounter Care Teams Public Health Inspector Relationship Specialty Start Date End Date Fidencio Walsh MD [address] [place] [address] [place] [address] PCP - General Internal Medicine 08/09/22 documented as of this encounter
--- NOTE | 2025-05-01 13:30 | US_ITS ---
PROCEDURE: US TRANSVAGINAL CLINICAL INDICATION: abnormal uterine bleeding COMPARISON: No exams were available for comparison FINDINGS: Transvaginal sonographic images of the pelvis were obtained. UTERUS: 7.3cm x 4.6 cmx 3.7 cm with a combined endometrial thickness of 3.3mm. The endometrium appears atrophic. The uterus is fluid-filled. This fluid-filled area measures 4.0 cm x 2.2 cm x 3.9 cm. There appears to be a solid and cystic mass within the cervix that may represent a large cervical polyp. It measures 2.5 cm x 1.8 cm x 2.1 cm. There appears to be a vascular pedicle originating in the upper cervix to this mass. LEFT OVARY: 1.0cmx1.0cmx0.9cm with a volume of 0.4ml. The left ovary is difficult to visualize. RIGHT OVARY: Not visualized Left ovary is seen and appears atrophic. Doppler flow to left ovary is seen. There is no fluid in the cul-de-sac. IMPRESSION: 1. Anteverted uterus, slightly enlarged due to the large amount of fluid within the endometrium. There is a mass in the cervix that measures up to 2.5 cm in size with a vascular pedicle. Likely an endometrial polyp. The endometrium appears atrophic. 2. The left ovary is seen and is small and atrophic appearing. The right ovary is not visualized. 3. Fluid in the cul-de-sac. Dictated by: Wilberto Rivas MD 05/01/2025 19:23 Wilberto Rivas MD in OV 05/01/2025 19:23
== END 2025-05-01 23:59 | disposition home or self-care (01) ==
LOC: RAD 12:57
PROVIDERS: PCP Obstetrics & Gynecology; Visit Provider Obstetrics & Gynecology
DX: N85.4 Malposition of uterus (principal); N85.2 Hypertrophy of uterus; N85.8 Other specified noninflammatory disorders of uterus; N83.312 Acquired atrophy of left ovary; N93.9 Abnormal uterine and vaginal bleeding, unspecified; R93.89 Abnormal findings on diagnostic imaging of other specified body structures
CPT/HCPCS: 76830

== ENCOUNTER 2025-05-15 11:02 | Outpatient (CLI) | payer MEDICARE, SELFPAY ==
--- OUTSIDE RECORDS SUMMARY | 2025-04-04 13:00 | XMS_ITS | Encounter Summary ---
Author Organization [facility] Address [address] [place] [id number] Care Team Providers Care Marketing Program Coordinator Name Role Phone Fidencio Walsh MD Primary Care Provider [phone] Reason for Visit * Reason Comments Primary Care Follow-Up 1 mo f/u Encounter Details Date Type Department Care Team (Late st Contact Info) Description 04/04/2025 1:00 PM EDT Office Visit [facility] [address] [place] [address] [place] [phone] Fidencio Walsh MD [address] [place] [address] [place] [phone] Stage 3a chronic kidney disease (Primary Dx); Iron deficiency anemia, unspecified iron deficiency anemia type; Coronary artery disease involving coronary bypass graft of mentasta heart without angina pectoris; Prediabetes Social History Tobacco Use Types Packs/Day Years Used Date Smoking Tobacco: Former Cigarettes 1 28 1 966 - 1993 Passive Smoke Exposure: Past Smokeless Tobacco: Never Alcohol Use Standard Drinks/Week Comments Never 0 (1 standard drink = 0.6 oz pur e alcohol) PHQ-2 Answer Date Recorded Retired PHQ-9: Brief Depression Severity Measure Score 0 08/02/2023 PHQ-2 Answer Date Recorded Patient Health Questionnaire-2 Score 0 08/20/2024 Comments No Sex and Gender Information Value Date Recorded Sex Assigned at Female 02/03/2023 2:56 PM EDT Legal Sex Female 4:45 PM EDT Gender Identity Female 02/03/2023 2:56 PM EDT Sexual Orientation Straight 02/03/2023 2: 56 PM EDT documented as of this encounter Last Filed Vital Signs Vital Sign Reading Time Taken Comments Blood Pressure 124/82 04/04/2025 1:07 PM EDT Pulse 75 04/04/2025 1:07 PM EDT Temperature 37.4 C (99.3 F) 04/04/2025 1:07 PM EDT Respiratory Rate 18 04/04/2025 1:07 PM EDT Oxygen Saturation 96% 04/04/2025 1:07 PM EDT Inhaled Oxygen Concentration - - Weight 74.8 kg (165 lb) 04/04/2025 1:07 PM EDT Height 160 cm (5' 3 ) 04/04/2025 1:07 PM EDT Body Mass Index 29.23 04/04/2025 1:07 PM EDT documented in this encounter Progress Notes * Fidencio Walsh MD - 04/04/2025 1:32 PM EDTAssociated Problem(s): Stage 3a chronic kidney disease Diagnosed with recent blood work in preparation of cardiac catheterization at [facility]02/23/2024 with creatinine was 1.49 and GFR 37, where the cardiac catheterization was canceled by Dr. Menjivar. Follow-up by myself 03/08/2024 showed notable improvement with creatinine 1.08 and GFR 54, subsequent to that through [facility] on 08/24/2024 with creatinine 1.0. Prior investigations include 02/08/2023 with creatinine 1.00 and GFR 60. Recent hematology labs on 03/22/2025 included CMP which had a creatinine 1.4 and a GFR of 40 which is similar compared to previous pattern nightly increase. She thinks he may not been drinking as well. As such she has been hydrating better, c ontinue unchanged and caution NSAIDs or other renal toxic medications. I will recheck her BMP todayto assess further, as well as a UACR to see if she is having any kidney protein loss where she might benefit from consideration of SGLT2 inhibitors in addition to her losartan 50 mg daily which does give renal benefit. * Fdiencio Walsh MD - 04/04/2025 1:31 PM EDTAssociated Problem(s): Prediabetes Diagnosis with hemoglobin A1c of 5.7% with 02/08/2023 blood work. Hemoglobin A1c slightly increased to 5.6% on 02/18/2025, compared to previous 5.5% on 08/20/2024, previously improved with dietary changes today on 01/31/2024 at 5.5%, previous 6.3%, 5.7%, and 5.7% at diagnosis. No indication for medication at this time. Too soon to recheck her hemoglobin A1c but she is having no polyuria polydipsia and was actually doing better with diet and activity with 7 pound weight loss. She is aware of increased thirst or urination pattern is a sign of potential progression to diabetes. Continue healthy diet, exercise, weight loss. Monitor hemoglobin A1c she follows up in May 2025 * Fidencio Walsh MD - 04/04/2025 1:30 PM EDTAssociated Problem(s): Iron deficiency anemia Diagnosed with recent blood work 02/23/2024 in anticipation of that days cardiac catheterization with hemoglobin 8.4 and hematocrit 29.8 with most recent prior 02/08/2023 at 11.2 and 36.8. Additional iron level obtained which was low at 14, TIBC was within normal limits but percent saturation was lowat 4%. Consistent with iron deficiency anemia. She was initiated on ferrous sulfate 325 mg daily, with vitamin C coadministered to help increase absorption. There are no clear signs of bleeding. Recheck of iron testing 03/08/2024 revealed consistent pattern of iron deficiency anemia, she has subsequently had through cook helper pastry Dr. Wing a 06/04/2024 colonoscopy with one 8 mm polyp, otherwise negative and no signs of bleeding and an EGD reported 06/04/2024 as negative as well. Subsequent pill endoscopy completed mid July 2024 nonrevealing. She notably had follow-up 08/24/2024 with hematology/oncology related history of breast DCIS, where they rechecked her blood counts and hemoglobin is 13.8, hematocrit 43.2, both normalized with normal iron studies and ferritin, and again recently checked on 03/22/2025 with again stabilized iron counts and blood counts. She is on anastrozole which has some potential risk of causing anemia as well. Most recent follow-up with [facility]/oncology on 03/22/2025. * Fidencio Walsh MD - 04/04/2025 1:28 PM EDTAssociated Problem(s): Coronary artery disease involving coronary bypass graft of mentasta heart without angina pectoris Reported history of 3 vessel bypass grafting in 2011, performed in [place]. Previously she had seen Dr. Calderon, academic computing director in [place]. She saw Dr. Womack, who had a non-concerning stress echocardiogram 03/30/2018, as clearance for colonoscopy. She switched to Dr. Alicia Cruz with appointment 01/13/2024 where she had open he had a stress echocardiogram which had some potentially concerning component where she was referred to senior benefits specialist Dr. Menjivar, with recommendation for cardiac catheterization which was planned and set up for 02/23/2024 but with kidney dysfunction and new anemia, it was canceled. Since that time she has had improved kidney function with 03/08/2024 creatinine 1.08 and GFR 54, but still needs to follow-up and schedule catheterization which is pending as of 08/20/2024 visit. She takes an aspirin 81 mg tablet daily, Coreg 12.5 twice daily, Crestor 20 mg daily, losartan 50 mg daily. EKG 08/02/2023 without concern, no change compared to 06/12/2020, 05/07/2019. Keep follow-up with cardiology, last visit with Dr. Cruz's 11/13/2024 with stability and 1 year follow-up recommended. No new symptoms of concern as of 04/04/2025 * Melonie Lucero MA - 04/04/2025 1:00 PM EDT Venipuncture Blood Specimen Collection Venipuncture performed in right arm by Melonie Lucero MA with good hemostasis. Patient tolerated the procedure well without complications. 04/04/25 Melonie Lucero MA * Fidencio Walsh MD - 04/04/2025 1:00 PM EDT Images from the original note were not included. Office Note Name: Alba Gerber : 1950 Chief Complaint Primary Care Follow-Up (1 mo f/u) Subjective History of Present Illness: Alba Gerber is a 74 y.o. female who presents today for follow-up on multimedical problems most notably with recent labs from hematology. They did some iron labs and CBC in addition to CMP on 03/22/2025. Her hemoglobin and hematocrit have continued stabilized in normal range and her iron deficiency previously was in good range. Nonetheless the CMP had increased creatinine 1.4 with a GFR 40, which was increased compared to previous although she had been in that range again last summer 2023. She does note she may not have been hydrating as well and that was going on and there was also a lot of weather, she has been doing better since. She is not having any urinary discomfort, we talked about rec hecking her BMP and a UACR today and she is agreeable. Otherwise regarding prediabetic pattern she continues to eat healthy and be active and has had 7 pound weight loss. She is hoping that will alsobenefit her cholesterol. Blood pressure continues in good range when she checks it and no lightheadedness or dizziness. Regarding cardiac history no chest pain palpitations or shortness of breath Review of Systems Objective Past Medical History: Diagnosis Date CAD (coronary artery disease) HERB (obstructive sleep apnea) Past Surgical History: Procedure Laterality Date ANKLE SURGERY Right ankle repair 1996. CARPAL TUNNEL RELEASE Right wrist carpal tunnel repair . CHOLECYSTECTOMY COLONOSCOPY last reported approximately 2004, believed to be normal. CORONARY ARTERY BYPASS GRAFT History of coronary artery disease with three-vessel CABGs reported 2011. STOMACH SURGERY 2004 intervention for bleeding gastric ulcers. TUBAL ABDOMINAL LIGATION bilateral tubal ligation in the . Family History Problem Relation Age of Onset Other Mother CARDIAC VALVULAR DISEASE Diabetes Mother Ulcers Mother Cancer Father PULMONARY CARCINOMA SECONDARY TO SMOKING AND MINING WORK Other Sister Bright disease and cervical carcinoma Other Sister EYE ISSUES Hypertension Sister Other Brother Goodpasture's disease Other Brother kidney disease/Bright disease, Other Brother AGENT ORANGE EXPOSURE Heart disease Brother Diabetes type II Brother Hypertension Brother Cancer Maternal Grandmother LIVER AND BILE DUCT Other Maternal Grandfather STOMACH ISSUES Hypertension Son Diabetes Son Obesity Son Vital Signs BP 124/82 (BP Location: Left arm, Patient Position: Sitting, Cuff Size: Adult) Pulse 75 Temp 99.3 ??F (37.4 ??C) (Temporal) Resp 18 Ht 160 cm (63 ) Wt 74.8 kg (165 lb) SpO2 96% BMI 29.23 kg/m?? Estimated body mass index is 29.23 kg/m?? as calculated from the following: Height as of this encounter: 160 cm (63 ). Weight as of this encounter: 74.8 kg (165 lb). Physical Exam Constitutional: General: She is not in acute distress. Appearance: Normal appearance. She is not ill-appearing, toxic-appearing or diaphoretic. HENT: Right Ear: Tympanic membrane, ear canal and external ear normal. Left Ear: Tympanic membrane, ear canal and external ear normal. Nose: Nose normal. No rhinorrhea. Mouth/Throat: Mouth: Mucous membranes are moist. Pharynx: Oropharynx is clear. No oropharyngeal exudate or posterior oropharyngeal erythema. Neck: Vascular: No carotid bruit. Cardiovascular: Rate and Rhythm: Normal rate and regular rhythm. Pulses: Normal pulses. Heart sounds: Normal heart sounds. No murmur heard. No friction rub. No gallop. Pulmonary: Effort: Pulmonary effort is normal. No respiratory distress. Breath sounds: Normal breath sounds. No stridor. No wheezing. Musculoskeletal: Cervical back: Neck supple. No tenderness. Right lower leg: No edema. Left lower leg: No edema. Lymphadenopathy: Cervical: No cervical adenopathy. Skin: General: Skin is warm and dry. Capillary Refill: Capillary refill takes less than 2 seconds. Neurological: General: No focal deficit present. Mental Status: She is alert and oriented to person, place, and time. Mental status is at baseline. Psychiatric: Mood and Affect: Mood normal. Behavior: Behavior normal. Thought Content: Thought content normal. POCT Results (if applicable): Results for orders placed or performed in visit on 02/18/25 POC Glycosylated Hemoglobin (Hb A1C) Collection Time: 02/18/25 2:28 PM Specimen: Blood Result Value Ref Range Hemoglobin A1C 5.6 4.5 - 5.7 % Lot Number [id number] Expiration Date 10/19/2026 POC Glucose, Blood Collection Time: 02/18/25 2:28 PM Specimen: Blood Result Value Ref Range Glucose 87 70 - 130 mg/dL Lot Number [id number] Expiration Date 09/06/2025 TSH Collection Time: 02/18/25 2:29 PM Specimen: Arm, Right; Blood Blood Release to kasey Result Value Ref Range TSH 1.230 0.450 - 4.500 uIU/mL T4, Free Collection Time: 02/18/25 2:29 PM Specimen: Arm, Right; Blood Blood Release to kasey Result Value Ref Range Free T4 1.43 0.82 - 1.77 ng/dL Assessment and Plan Diagnoses and all orders for this visit: 1. Stage 3a chronic kidney disease (Primary) Assessment & Plan: Diagnosed with recent blood work in preparation of cardiac catheterization at [facility]02/23/2024 with creatinine was 1.49 and GFR 37, where the cardiac catheterization was canceled by Dr. Menjivar. Follow-up by myself 03/08/2024 showed notable improvement with creatinine 1.08 and GFR 54, subsequent to that through [facility] hematology on 08/24/2024 with creatinine 1.0. Prior investigations include 02/08/2023 with creatinine 1.00 and GFR 60. Recent hematology labs on 03/22/2025 included CMP which had a creatinine 1.4 and a GFR of 40 which is similar compared to previous pattern nightly increase. She thinks he may not been drinking as well. As such she has been hydrating better, c ontinue unchanged and caution NSAIDs or other renal toxic medications. I will recheck her BMP todayto assess further, as well as a UACR to see if she is having any kidney protein loss where she might benefit from consideration of SGLT2 inhibitors in addition to her losartan 50 mg daily which does give renal benefit. Orders: - Basic Metabolic Panel; Future - Microalbumin / Creatinine Urine Ratio - Urine, Clean Catch; Future - Microalbumin / Creatinine Urine Ratio - Urine, Clean Catch - Basic Metabolic Panel 2. Iron deficiency anemia, unspecified iron deficiency anemia type Assessment & Plan: Diagnosed with recent blood work 02/23/2024 in anticipation of that days cardiac catheterization with hemoglobin 8.4 and hematocrit 29.8 with most recent prior 02/08/2023 at 11.2 and 36.8. Additional iron level obtained which was low at 14, TIBC was within normal limits but percent saturation was lowat 4%. Consistent with iron deficiency anemia. She was initiated on ferrous sulfate 325 mg daily, with vitamin C coadministered to help increase absorption. There are no clear signs of bleeding. Recheck of iron testing 03/08/2024 revealed consistent pattern of iron deficiency anemia, she has subsequently had through cook helper pastry Dr. Wing a 06/04/2024 colonoscopy with one 8 mm polyp, otherwise negative and no signs of bleeding and an EGD reported 06/04/2024 as negative as well. Subsequent pill endoscopy completed mid July 2024 nonrevealing. She notably had follow-up 08/24/2024 with hematology/oncology related history of breast DCIS, where they rechecked her blood counts and hemoglobin is 13.8, hematocrit 43.2, both normalized with normal iron studies and ferritin, and again recently checked on 03/22/2025 with again stabilized iron counts and blood counts. She is on anastrozole which has some potential risk of causing anemia as well. Most recent follow-up with [facility]/oncology on 03/22/2025. 3. Coronary artery disease involving coronary bypass graft of mentasta heart without angina pectoris Assessment & Plan: Reported history of 3 vessel bypass grafting in 2011, performed in [place]. Previously she had seen Dr. Calderon, academic computing director in [place]. She saw Dr. Womack, who had a non-concerning stress echocardiogram 03/30/2018, as clearance for colonoscopy. She switched to Dr. Alicia Cruz with appointment 01/13/2024 where she had open he had a stress echocardiogram which had some potentially concerning component where she was referred to senior benefits specialist Dr. Menjivar, with recommendation for cardiac catheterization which was planned and set up for 02/23/2024 but with kidney dysfunction and new anemia, it was canceled. Since that time she has had improved kidney function with 03/08/2024 creatinine 1.08 and GFR 54, but still needs to follow-up and schedule catheterization which is pending as of 08/20/2024 visit. She takes an aspirin 81 mg tablet daily, Coreg 12.5 twice daily, Crestor 20 mg daily, losartan 50 mg daily. EKG 08/02/2023 without concern, no change compared to 06/12/2020, 05/07/2019. Keep follow-up with cardiology, last visit with Dr. Cruz's 11/13/2024 with stability and 1 year follow-up recommended. No new symptoms of concern as of 04/04/2025 4. Prediabetes Assessment & Plan: Diagnosis with hemoglobin A1c of 5.7% with 02/08/2023 blood work. Hemoglobin A1c slightly increased to 5.6% on 02/18/2025, compared to previous 5.5% on 08/20/2024, previously improved with dietary changes today on 01/31/2024 at 5.5%, previous 6.3%, 5.7%, and 5.7% at diagnosis. No indication for medication at this time. Too soon to recheck her hemoglobin A1c but she is having no polyuria polydipsia and was actually doing better with diet and activity with 7 pound weight loss. She is aware of increased thirst or urination pattern is a sign of potential progression to diabetes. Continue healthy diet, exercise, weight loss. Monitor hemoglobin A1c she follows up in May 2025 Vaccine Counseling: Follow Up No follow-ups on file. Fidencio Walsh MD documented in this encounter Plan of Treatment Upcoming Encounters Date Type Department Care Team (Late st Contact Info) Description 06/20/2025 2:00 PM EDT Office Visit [facility] [address] [place] [address] [place] [phone] Fidencio Walsh MD [address] [place] [address] [place] [id number] documented as of this encounter Procedures Procedure Name Priority Date/Time Associated Diagnosis Comments MICROALBUMIN / CREATININE URINE RATIO Routine 04/04/2025 1:32 PM EDT Stage 3a chronic kidney disease BASIC METABOLIC PANEL Routine 04/04/2025 1:32 PM EDT Stage 3a chronic kidney disease documented in this encounter Results * (ABNORMAL) Microalbumin / Creatinine Urine Ratio - Urine, Clean Catch (04/04/2025 1:32 PM EDT) Creatinine, Urine 31.3 Not Estab. mg/dL [facility] Microalbumin, Urine 10.0 Not Estab. ug/mL [facility] Microalbumin/Cre atinine Ratio 32(H) 0 - 29 mg/g creat [facility] Comment: Normal: 0 - 29 Moderately increased: 30 - 300 Severely increased: >300 Urine Urine specimen obtained by clean catch procedure / Unknown 04/04/2025 1:32 PM EDT 04/04/2025 Comment:Urine Release to [facility] (AMBULATORY) - 04/05/2025 1:07 PM EDT Performed at: [address] [place] [id number] Boat Oar Maker: Sidney Verdin PhD, Phone: [phone] Fidencio Walsh MD URINE ORDERABLES Final Result [facility] (AMBULATORY) [address] [place] [id number], [facility] [address] [place] [id number], * (ABNORMAL) Basic Metabolic Panel (04/04/2025 1:32 PM EDT) Pathologist [facility] Glucose 85 70 - 99 mg/dL [facility] BUN 15 8 - 27 mg/dL [facility] Creatinine 1.01(H) 0.57 - 1.00 mg/dL [facility] EGFR Result 58(L) >59 mL/min/1.7 3 [facility] BUN/Creatinine Ratio 15 12 - 28 [facility] Sodium 138 134 - 144 mmol/L [facility] Potassium 4.6 3.5 - 5.2 mmol/L [facility] Chloride 99 96 - 106 mmol/L [facility] Total CO2 20 20 - 29 mmol/L [facility] Calcium 9.7 8.7 - 10.3 mg/dL [facility] Blood 04/04/2025 1:32 PM EDT 04/04/2025 Comment:Blood Release to [facility] (AMBULATORY) - 04/05/2025 11:07 AM EDT Performed at: 01 - [facility] [address] [facility], [place], [place] [id number] Boat Oar Maker: Sidney Verdin PhD, Phone: [phone] us Fidencio Walsh MD LAB BLOOD ORDERABLES Final Resul t [facility] (AMBULATORY) [address] [place] [address], [place] [phone] [facility] [address] [place] [address], documented in this encounter Visit Diagnoses Diagnosis Stage 3a chronic kidney disease- Primary Iron deficiency anemia, unspecified iron deficiency anemia type Coronary artery disease involving coronary bypass graft of mentasta heart without angina pectoris Prediabetes Other abnormal glucose documented in this encounter Care Teams Marketing Program Coordinator Relationship Specialty Start Date End Date Fidencio Walsh MD [address] [place] [address] [place] [id number] PCP - General Internal Medicine 08/09/22 documented as of this encounter
--- OUTSIDE RECORDS SUMMARY | 2025-05-16 11:23 | XMS_ITS | Encounter Summary ---
Author Organization [facility] Address [address] [place] [address] Care Team Providers Care Process Control Technician Name Role Phone Fidencio Walsh MD Primary Care Provider [phone] Reason for Visit * Reason Comments Med Refill Encounter Details Date Type Department Care Team (Late Contact Info) Description 04/09/2025 Refill [facility] [address] [place] [address] [place] [phone] Fidencio Walsh MD [address] [place] [address] [place] [address] Seasonal allergic rhinitis due [...] 06/20/2025 2:00 PM EDT Office Visit [facility] [address] [place] [address] [place] [address] Fidencio Walsh MD [address] [place] [address] documented as of this encounter Visit Diagnoses Diagnosis Seasonal allergic rhinitis due to pollen documented in this encounter Care Teams Process Control Technician Relationship Specialty Start Date End Date Fidencio Walsh MD [address] [address] PCP - General Internal Medicine 08/09/22 documented as of this encounter
--- OUTSIDE RECORDS SUMMARY | 2025-05-16 11:23 | XMS_ITS | Encounter Summary ---
Author Organization [facility] Address [address] [place] [id number] Care Team Providers Care Glass Blower Name Role Phone Fidencio Walsh MD Primary Care Provider [phone] Reason for Visit * Reason Comments Med Refill Encounter Details Date Type Department Care Team (Late st Contact Info) Description 04/09/2025 Refill [facility] [address] [place] [address] [place] [address] Fidencio Walsh MD [address] [place] [address] [place] [address] Acquired hypothyroidism Social History Tobacco Use [...] 06/20/2025 2:00 PM EDT Office Visit [facility] [address] [place] [id number] Fidencio Walsh MD [address] [place] [address] documented as of this encounter Visit Diagnoses Diagnosis Acquired hypothyroidism Unspecified hypothyroidism documented in this encounter Care Teams Glass Blower Relationship Specialty Start Date End Date Fidencio Walsh MD [address] [place] [address] PCP - General Internal Medicine 08/09/22 documented as of this encounter
--- OUTSIDE RECORDS SUMMARY | 2025-05-16 11:23 | XMS_ITS | Encounter Summary ---
Author Organization [facility] Address [address] [place] [address] Care Team Providers Care Process Improvement Analyst Name Role Phone Fidencio Walsh MD Primary Care Provider [phone] Reason for Visit * Reason Comments Med Refill Encounter Details Date Type Department Care Team (Late Contact Info) Description 03/19/2025 Refill [facility] [address] [place] [address] [place] [phone] Fidencio Walsh MD [address] [place] [address] [place] [address] Seasonal allergic rhinitis due [...] Description 06/20/2025 2:00 PM EDT Office Visit [facility] [address] [place] [address] [place] [phone] Fidencio Walsh MD [address] [place] [address] documented as of this encounter Visit Diagnoses Diagnosis Seasonal allergic rhinitis due to pollen documented in this encounter Care Teams Process Improvement Analyst Relationship Specialty Start Date End Date Fidencio Walsh MD [address] [place] [address] PCP - General Internal Medicine 08/09/22 documented as of this encounter
--- OUTSIDE RECORDS SUMMARY | 2025-05-16 11:23 | XMS_ITS | Encounter Summary ---
Author Organization [facility] Address [address] [place] [address] Care Team Providers Care Publishing Manager Name Role Phone Fidencio Walsh MD Primary Care Provider [phone] Reason for Visit * Reason Onset Date Comments ED - Called Back For Treatment Only 02/19/2025 Encounter Details Date Type Department Care Team (Late st Contact Info) Description 02/19/2025 Results Follow-Up [facility] [address] [place] [address] [place] [phone] Fidencio Walsh MD [address] [place] [address] [place] [address] ED - Called Back For Treatment [...] Description 06/20/2025 2:00 PM EDT Office Visit [facility] [address] [place] [phone] Fidencio Walsh MD [address] [place] [place] [address] documented as of this encounter Visit Diagnoses Not on filedocumented in this encounter Care Teams Publishing Manager Relationship Specialty Start Date End Date Fidencio Walsh MD [address] [place] [address] PCP - General Internal Medicine 08/09/22 documented as of this encounter
--- OUTSIDE RECORDS SUMMARY | 2025-05-16 11:23 | XMS_ITS | Encounter Summary ---
Author Organization [facility] Address [address] [place] [address] Care Team Providers Care Wellness Nurse Rn Name Role Phone Fidencio Walsh MD Primary Care Provider [phone] Reason for Visit * Reason Comments Med Refill Encounter Details Date Type Department Care Team (Late Contact Info) Description 03/28/2025 Refill [facility] [address] [place] [address] [place] [phone] Fidencio Walsh MD [address] [place] [address] [place] [address] Seasonal allergic rhinitis due [...] Description 06/20/2025 2:00 PM EDT Office Visit [facility] [address] [place] [address] [place] [phone] Fidencio Walsh MD [address] [place] [address] documented as of this encounter Visit Diagnoses Diagnosis Seasonal allergic rhinitis due to pollen documented in this encounter Care Teams Wellness Nurse Rn Relationship Specialty Start Date End Date Fidencio Walsh MD [address] [address] PCP - General Internal Medicine 08/09/22 documented as of this encounter
--- OUTSIDE RECORDS SUMMARY | 2025-05-16 11:23 | XMS_ITS | Clinical Summary ---
Author Organization [facility] Address [address] [place] [address] Care Team Providers Care Recruiter Account Manager Name Role Phone Unavailable Primary Care Provider [...]
--- OUTSIDE RECORDS SUMMARY | 2025-05-16 11:23 | XMS_ITS | Encounter Summary ---
Author Organization [facility] Address [address] [place] [address] Care Team Providers Care Manager Rail Name Role Phone Fidencio Walsh MD Primary Care Provider [phone] Encounter Details Date Type Department Care Team [...] Description 06/20/2025 2:00 PM EDT Office Visit [facility] [address] [place] [address] [place] [phone] [facility]idencio [facility] [address] documented as of this encounter Visit Diagnoses Not on filedocumented in this encounter Care Teams Manager Rail Relationship Specialty Start Date End Date Fidencio Walsh [facility] [place] [address] 961-10 PCP - General Internal Medicine 08/09/22 documented as of this encounter
--- OUTSIDE RECORDS SUMMARY | 2025-05-16 11:23 | XMS_ITS | Encounter Summary ---
Author Organization [facility] Address [address] [place] [address] Care Team Providers Care Cell Reliner Name Role Phone Fidencio Walsh MD Primary Care Provider [phone] Reason for Visit * Reason Comments Med Refill Encounter Details Date Type Department Care Team (Late st Contact Info) Description 04/01/2022 Refill [facility] [address] [place] [address] [place] [phone] Fidencio Walsh MD [address] [place] [address] [place] [address] Social History Tobacco Use Types Packs/Day [...] Visit [facility] [address] [place] [address] [place] [phone] Fidencio Walsh MD [address] [place] [address] [place] [address] documented as of this encounter Visit Diagnoses Not on filedocumented in this encounter Care Teams Cell Reliner Relationship Specialty Start Date End Date Fidencio Walsh MD [facility] [place] [address] PCP - General Internal Medicine 08/09/22 documented as of this encounter
--- OUTSIDE RECORDS SUMMARY | 2025-05-16 11:23 | XMS_ITS | Encounter Summary ---
Author Organization [facility] Address [address] [place] [address] Care Team Providers Care Ammonium Sulfate Operator Name Role Phone Fidencio Walsh MD Primary Care Provider [phone] Reason for Visit * Reason Comments Med Refill Encounter Details Date Type Department Care Team (Late st Contact Info) Description 07/20/2023 Refill [facility] [address] [place] [address] [place] [phone] Fiedncio Walsh MD [address] [place] [address] [place] [address] Social History Tobacco Use [...] 2:00 PM EDT Office Visit [facility] [address] [place] [address] [place] [phone] Fidencio Walsh MD [address] [place] [address] [place] [address] documented as of this encounter Visit Diagnoses Not on filedocumented in this encounter Care Teams Ammonium Sulfate Operator Relationship Specialty Start Date End Date Fidencio Walsh MD [address] [place] [address] PCP - General Internal Medicine 08/09/22 documented as of this encounter
--- OUTSIDE RECORDS SUMMARY | 2025-05-16 11:23 | XMS_ITS | Encounter Summary ---
Author Organization [facility] Address [address] [place] [address] Care Team Providers Care Top Coater Name Role Phone Fidencio Walsh MD Primary Care Provider [phone] Reason for Visit * Reason Comments Med Refill Encounter Details Date Type Department Care Team (Late Contact Info) Description 03/25/2025 Refill [facility] [address] [place] [address] [place] [phone] Fidencio Walsh MD [address] [place] [address] [place] [address] Acquired hypothyroidism Social History [...] Visit [facility] [address] [place] [address] [place] [phone] Fidencio Walsh MD [address] [place] [address] [place] [address] documented as of this encounter Visit Diagnoses Diagnosis Acquired hypothyroidism Unspecified hypothyroidism documented in this encounter Care Teams Top Coater Relationship Specialty Start Date End Date Fidencio Walsh MD [address] [place] [address] PCP - General Internal Medicine 08/09/22 documented as of this encounter
--- OUTSIDE RECORDS SUMMARY | 2025-05-16 11:23 | XMS_ITS | Encounter Summary ---
Author Organization [facility] Address [address] [place] [address] Care Team Providers Care Hose Tender Name Role Phone Fidencio Walsh MD Primary Care Provider [phone] Reason for Visit * Reason Onset Date Comments REFERRAL 02/21/2025 Encounter Details Date Type Department Care Team (Late st Contact Info) Description 02/21/2025 Telephone [facility] [address] [place] [address] [place] [address] Fidencio Walsh MD [address] [place] [address] [place] [address] REFERRAL Social History Tobacco Use Types [...] the provider, practice or medical service name: VICKI WRAY What is the office location: [facility] What is the office phone number: Any additional details: documented in this encounter Plan of Treatment Upcoming Encounters Date Type Department Care Team (Late st Contact Info) Description 06/20/2025 2:00 PM EDT Office Visit [facility] [address] [place] [address] Fidencio Walsh MD [address] [place] [address] [place] [address] documented as of this encounter Visit Diagnoses Not on filedocumented in this encounter Care Teams Hose Tender Relationship Specialty Start Date End Date Fidencio Walsh MD [address] [place] [address] PCP - General Internal Medicine 08/09/22 documented as of this encounter
--- OUTSIDE RECORDS SUMMARY | 2025-05-16 11:23 | XMS_ITS | Encounter Summary ---
Author Organization [facility] Address [address] [place] [address] Care Team Providers Care Barge Captain Name Role Phone Fidencio Walsh MD Primary Care Provider [phone] Encounter Details Date Type Department Care Team (Late st Contact Info) Description 03/21/2025 External PBMM Data [facility] [address] [facility] [place] [address] Pharmacy, Payor Data Social History Tobacco Use [...] 2:00 PM EDT Office Visit [facility] [address] [place] [address] [place] [phone] Fidencio Walsh MD [address] [place] [address] [place] [address] documented as of this encounter Visit Diagnoses Not on filedocumented in this encounter Care Teams Barge Captain Relationship Specialty Start Date End Date Fidencio Walsh MD [address] [place], [place] [address] PCP - General Internal Medicine 08/09/22 documented as of this encounter
--- OUTSIDE RECORDS SUMMARY | 2025-05-16 11:23 | XMS_ITS | Encounter Summary ---
Author Organization [facility] Address [address] [place] [id number] Care Team Providers Care Cartridge Gauger Name Role Phone Fidencio Walsh MD Primary Care Provider [phone] Reason for Visit * Reason Onset Date Comments Results 03/25/2025 Encounter Details Date Type Department Care Team (Late st Contact Info) Description 03/25/2025 Telephone [facility] [address] [place] [address] [place] [address] Fidencio Walsh MD [address] [place] [address] Results Social History Tobacco Use Types [...] Encounter - Tiffany Delgadillo MA - 03/26/2025 12:13 PM EDT I [...] BuzzPrettyhy Relationship: Self Best call back number: [phone] Caller requesting test results: PT What test [...] Office Visit [facility] [address] [place] [address] [place] [phone] Fidencio Walsh MD [address] [place] [address] documented as of this encounter Visit Diagnoses Not on filedocumented in this encounter Care Teams Cartridge Gauger Relationship Specialty Start Date End Date Fidencio Walsh MD [address] [address] PCP - General Internal Medicine 08/09/22 documented as of this encounter
--- OUTSIDE RECORDS SUMMARY | 2025-05-16 11:23 | XMS_ITS | Encounter Summary ---
Author Organization [facility] Address [address] [place] [address] Care Team Providers Care Metal Plater Name Role Phone Fidencio Walsh MD Primary Care Provider [phone] Encounter Details Date Type Department Care Team (Late st Contact Info) Description 04/05/2025 Results Follow-Up [facility] [address] [place] [address] [place] [address] Fidencio Walsh MD [address] [place] [address] [place] [address] Social History Tobacco Use Types Packs/Day [...] 06/20/2025 2:00 PM EDT Office Visit [facility] [address] [place] [address] Fidencio Walsh MD [address] [place] [address] documented as of this encounter Visit Diagnoses Not on filedocumented in this encounter Care Teams Metal Plater Relationship Specialty Start Date End Date Fidencio Walsh MD [address] [place] [address] PCP - General Internal Medicine 08/09/22 documented as of this encounter
--- OUTSIDE RECORDS SUMMARY | 2025-05-16 11:23 | XMS_ITS | Encounter Summary ---
Author Organization [facility] Address [address] [place] [address] Care Team Providers Care Metal Wire Technician Name Role Phone Fidencio Walsh MD Primary Care Provider [phone] Encounter Details Date Type Department Care Team (Late st Contact Info) Description 04/18/2025 External PBMM Data [facility] [address] [facility] [place] [address] Pharmacy, Payor Data Social History Tobacco Use [...] Description 06/20/2025 2:00 PM EDT Office Visit [facility] [address] [place] [address] [place] [phone] Fidencio Walsh MD [address] [place] [address] [place] [address] documented as of this encounter Visit Diagnoses Not on filedocumented in this encounter Care Teams Metal Wire Technician Relationship Specialty Start Date End Date Fidencio Walsh MD [address] [place], [place] [address] PCP - General Internal Medicine 08/09/22 documented as of this encounter
--- OUTSIDE RECORDS SUMMARY | 2025-05-16 11:23 | XMS_ITS | Clinical Summary ---
Author Organization [facility] Address [address] [place] [address] Care Team Providers Care Dictating Machine Transcriber Name Role Phone Fidencio Walsh MD Primary Care Provider [phone] Allergies Active Allergy Reactions Criticality Noted Date Comments Codeine Provider Review Needed 05/19/2022 Medications anastrozole (ARIMIDEX) 1 MG tablet 07/01/20 22 Active Calcium Carbonate 1500 (600 Ca) MG tablet Take 1 tablet by mouth. Active aspirin 81 MG chewable tablet Chew 1 tablet Daily. Active Simbrinza 1-0.2 % suspension 05/30/20 23 Active timolol (TIMOPTIC) 0.5 % ophthalmic solution Administer 1 drop to both eyes 2 (Two) Times a Day. 05/30/20 23 Active dorzolamide-timolo l (COSOPT) 2-0.5 % ophthalmic solution INSTILL 1 DROP INTO BOTH EYES 2 TIMES A DAY 12/23/19 24 Active Diclofenac Sodium (VOLTAREN) 1 % gel gelIndications:Cer vicalgia Apply 4 g topically to the appropriate area as directed 2 (Two) Times a Day As Needed (musculoskeleta l pain). 150 g 1 08/20/20 24 Active amitriptyline (ELAVIL) 50 MG tablet TAKE 1 TABLET BY MOUTH EVERY NIGHT 90 tablet 1 02/09/20 25 Active FeroSul 325 (65 Fe) MG tabletIndications: Iron deficiency anemia, unspecified iron deficiency anemia type Take 1 tablet by mouth Daily With Breakfast. 90 tablet 3 02/19/20 25 Active losartan (COZAAR) 50 MG tabletIndications: Essential hypertension TAKE 1 TABLET BY MOUTH DAILY 30 tablet 3 02/23/20 25 Active rosuvastatin (CRESTOR) 20 MG tablet TAKE 1 TABLET BY MOUTH EVERY EVENING 90 tablet 1 02/23/20 25 Active fluticasone (FLONASE) 50 MCG/ACT nasal sprayIndications:S easonal allergic rhinitis due to pollen ADMINISTER 2 SPRAYS INTO THE NOSTRIL(S) DAILY DIRECTED BY PROVIDER 16 g 3 03/19/20 25 Active cetirizine (zyrTEC) 10 MG tabletIndications: Seasonal allergic rhinitis due to pollen TAKE ONE TABLET BY MOUTH ONCE DAILY 30 tablet 3 03/28/20 25 Active empagliflozin (Jardiance) 10 MG tablet tabletIndications: Stage 3a chronic kidney disease,Microalbum inuria Take 1 tablet by mouth Daily. 30 tablet 3 04/05/20 25 Active levothyroxine (SYNTHROID, LEVOTHROID) 88 MCG tabletIndications: Acquired hypothyroidism Take 1 tablet by mouth Daily. 90 tablet 04/09/20 25 Active montelukast (SINGULAIR) 10 MG tabletIndications: Seasonal allergic rhinitis due to pollen TAKE 1 TABLET BY MOUTH EVERY NIGHT 30 tablet 1 04/09/20 25 Active carvedilol (COREG) 12.5 MG tablet Take 1 tablet by mouth 2 (Two) Times a Day With Meals. 30 tablet 2 04/17/20 25 Active coenzyme Q10 100 MG capsule Take 1 capsule by mouth Daily. 30 capsule 2 04/17/20 25 Active coenzyme Q10 100 MG capsule Take 1 capsule by mouth Daily. 025 Discontin ued(Reord er) carvedilol (COREG) 12.5 MG tablet Take 1 tablet by mouth 2 (Two) Times a Day With Meals. 025 Discontin ued(Reord er) Active Problems Problem Noted Date Diagnosed Date [...] I will refer her to gynecology at [place] location per her preference, appreciate that input. [...] deficiency anemia, she has subsequently had through visitor service assistant Dr. Wing a 06/04/2024 colonoscopy with one [...] anemia as well. Most recent follow-up with [facility] hematology/on[facility] on 03/22/2025. Assessment & Plan (02/18/2025 [...] deficiency anemia, she has subsequently had through visitor service assistant Dr. Wing a 06/04/2024 colonoscopy with one [...] anemia as well, she will follow-up with [facility] hematology/oncology on 03/22/2025. Assessment & Plan (08/20/2024 [...] deficiency anemia, she has subsequently had through visitor service assistant Dr. Wing a 06/04/2024 colonoscopy with one [...] of then speaking with Dr. Calero's office, visitor service assistant further is potentially planned colonoscopy to consider [...] work in preparation of cardiac catheterization at [facility] 02/23/2024 with creatinine was 1.49 and GFR 37, where the cardiac catheterization was canceled by Dr. Menjivar. Follow-up by myself 03/08/2024 showed notable improvement with creatinine 1.08 and GFR 54, subsequent to that through [facility] hematology on 08/24/2024 with creatinine 1.0. Prior [...] work in preparation of cardiac catheterization at [facility] 02/23/2024 with creatinine was 1.49 and GFR 37, where the cardiac catheterization was canceled by Dr. Menjivar. Follow-up by myself 03/08/2024 showed notable improvement with creatinine 1.08 and GFR 54, subsequent to that through [facility] hematology on 08/24/2024 with creatinine 1.0. Prior investigations include 02/08/2023 with creatinine 1.00 and GFR 60. Caution NSAIDs or other renal toxic medications. Reinforced importance of continued good hydration. Recheck with blood work when she follows up in May 2025. Assessment & Plan (08/20/2024 11:06 AM EST): Diagnosed with recent blood work in preparation of cardiac catheterization at [facility] 02/23/2024 with creatinine was 1.49 and GFR [...] work in preparation of cardiac catheterization at [facility] 02/23/2024 with creatinine was 1.49 and GFR [...] Routine general medical exam ination at a [facility] facility 08/09/2022 Assessment & Plan (08/20/2024 11:06 [...] Mammogram normal 10/12/2019, fall 2020 mammogram through [facility] with abnormality resulting in breast biopsy of the right breast which was reassuring with follow-up 07/15/2022 normal with 12-month recommendation, last normal follow-up on 11/10/2023 with yearly follow-up recommended. Vaccinations include verification of pneumococcal 23 valent vaccine on 06/05/2014, Zostavax on 06/05/2014, both at [facility], pneumococcal 13 valent vaccine 06/04/2015 [...] Mammogram normal 10/12/2019, fall 2020 mammogram through [facility] with abnormality resulting in breast biopsy of the right breast which was reassuring with follow-up 07/15/2022 normal with 12-month recommendation, patient still needs to schedule. Vaccinations include verification of pneumococcal 23 valent vaccine on 06/05/2014, Zostavax on 06/05/2014, both at [facility], pneumococcal 13 valent vaccine 06/04/2015 [...] Mammogram normal 10/12/2019, fall 2020 mammogram through [facility] with abnormality resulting in breast biopsy of the right breast which was reassuring with follow- up 07/15/2022 normal with 12-month recommendation for next follow-up. Vaccinations include verification of pneumococcal 23 valent vaccine on 06/05/2014, Zostavax on 06/05/2014, both at [facility], pneumococcal 13 valent vaccine 06/04/2015 [...] disease invo lving coronary bypass graft of [place]uiqs[place] heart without angina pectoris 08/09/2022 Assessment & Plan (04/04/2025 1:28 PM EDT): Reported history of 3 vessel bypass grafting in 2011, performed in [place]. Previously she had seen Dr. Calderon, advertising designer in [place]. She saw Dr. Womack, who had a non-concerning stress echocardiogram 03/30/2018, as clearance for colonoscopy. She switched to Dr. Alicia Cruz with appointment 01/13/2024 where she had open he had a stress echocardiogram which had some potentially concerning component where she was referred to corporate real estate specialist Dr. Menjivar, with recommendation for cardiac [...] vessel bypass grafting in 2011, performed in [place]. Previously she had seen Dr. Calderon, advertising designer in [place]. She saw Dr. Womack, who had a non-concerning stress echocardiogram 03/30/2018, as clearance for colonoscopy. She switched to Dr. Alicia Cruz with appointment 01/13/2024 where she had open he had a stress echocardiogram which had some potentially concerning component where she was referred to corporate real estate specialist Dr. Menjivar, with recommendation for cardiac [...] vessel bypass grafting in 2011, performed in [place]. Previously she had seen Dr. Calderon, advertising designer in [place]. She saw Dr. Womack, who had a non-concerning stress echocardiogram 03/30/2018, as clearance for colonoscopy. She switched to Dr. Alicia Cruz with appointment 01/13/2024 where she had open he had a stress echocardiogram which had some potentially concerning component where she was referred to corporate real estate specialist Dr. Menjivar, with recommendation for cardiac [...] vessel bypass grafting in 2011, performed in [place]. Previously she had seen Dr. Calderon, advertising designer in [place]. She saw Dr. Womack, who had a non-concerning stress echocardiogram 03/30/2018, as clearance for colonoscopy. She switched to Dr. Alicia Cruz with most recent appointment 01/13/2024 where she had open he had a stress echocardiogram which had some potentially concerning component where she was referred to corporate real estate specialist Dr. Menjivar, with recommendation for cardiac [...] vessel bypass grafting in 2011, performed in [place]. Previously she had seen Dr. Calderon advertising designer in [place]. She saw Dr. Womack, who had a non-concerning stress echocardiogram 03/30/2018, as clearance for colonoscopy. She switched to Dr. Alicia Cruz with most recent appointment 01/13/2024 where she had open he had a stress echocardiogram which had some potentially concerning component where she has been referred to corporate real estate specialist Dr. Menjivar, recommend importance of keeping that appointment. She takes an aspirin 81 mg tablet daily, Coreg 12.5 twice daily, Crestor 20 mg daily, losartan 50 mg daily. EKG 08/02/2023 without concern, no change compared to 06/12/2020, 05/07/2019. Keep follow-up with cardiology. Assessment & Plan (10/31/2023 1:45 PM EST): Reported history of 3 vessel bypass grafting in 2011, performed in [place]. Previously she had seen Dr. Calderon advertising designer in [place]. She saw Dr. Womack, who had a [...] vessel bypass grafting in 2011, performed in [place]. Previously she had seen Dr. Calderon, advertising designer in [place]. She saw Dr. Womack, who had a [...] vessel bypass grafting in 2011, performed in [place]. Previously she had seen Dr. Calderon, advertising designer in [place]. She saw Dr. Womack, who had a [...] vessel bypass grafting in 2011, performed in [place]. She notably had seen Dr. Calderon, advertising designer in [place]. She saw Dr. Womack, who had a [...] (02/18/2025 3:06 PM EDT): Ongoing follow-up with [facility] cardiology with good compliance control with last evaluation 07/29/2023, she is follow-up and reinforced importance of maintaining use of CPAP. Assessment & Plan (08/20/2024 11:06 AM EST): Ongoing follow-up with [facility] with good compliance control with last evaluation 07/29/2023, she is follow-up and reinforced importance of maintaining use of CPAP. Assessment & Plan (08/02/2023 2:09 PM EST): Ongoing follow-up with [facility] with good compliance control with last evaluation [...] generally good response to conservative treatment with kncy-reu-xiyhdug Aleve as needed, heating pad. Last such [...] generally good response to conservative treatment with ghbq-ruo-fxcluve Aleve as needed, heating pad. Last such [...] generally good response to conservative treatment with bfdz-snl-zomppye Aleve as needed, heating pad. Last such [...] generally good response to conservative treatment with nkzj-ezz-tvlknac Aleve as needed, heating pad. Last such [...] bothersome, some response to conservative treatment with piuy-hgu-dwrovqh Aleve as needed, heating pad. Modest flare [...] bothersome, some response to conservative treatment with cqfx-knj-klqfsfa Aleve as needed, heating pad. With what [...] bothersome, some response to conservative treatment with yzvs-sst-ethhtuj Aleve as needed, heating pad. She declines [...] concerning with ultimate right breast biopsy at [facility] on 07/07/2021, as performed by Dr. Valentin Chaves. Ultimately resulted in right sided lumpectomy with ductal carcinoma in situ diagnosis for which she has followed up most recently with Dr. Gasper Leo on 11/15/2024 with negative and reassuring breast imaging and 1 year follow-up recommended. Assessment & Plan (08/09/2022 10:50 AM EST): Fall 2020 breast imaging concerning with ultimate right breast biopsy at [facility] on 07/07/2021, as performed by Dr. Valentin Chaves. Most recent follow-up through [facility] 07/15/2022 normal with 1 year follow-up recommended Encounters Date Type Department Care Team Description 04/18/2025 External PBMM Data [facility] [address] [place] [address] [place] [phone] Pharmacy, Payor Data 04/17/2025 Refill [facility] [address] [place] [address] [place] [phone] Fidencio Walsh MD 04/09/2025 Refill [facility] [address] [place] [address] [place] [phone] Fidencio Walsh MD Seasonal allergic rhinitis due to pollen 04/09/2025 Refill [facility] [address] [place] [address] [place] [phone] Fidencio Walsh MD Acquired hypothyroidism 04/05/2025 Results Follow-Up [facility] [address] [place] [address] [place] [phone] Fidencio Walsh MD 04/04/2025 1:00 PM EDT Office Visit [facility] [address] [place] [address] [place] [phone] Fidencio Walsh MD Stage 3a chronic kidney disease (Primary Dx); Iron deficiency anemia, unspecified iron deficiency anemia type; Coronary artery disease involving coronary bypass graft of nuiqs[place] heart without angina pectoris; Prediabetes 04/04/2025 Travel 03/28/2025 Refill [facility] [address] [place] [address] [place] [phone] Fidencio Walsh MD Seasonal allergic rhinitis due to pollen 03/26/2025 Results Follow-Up [facility] [address] [place] [address] [place] [phone] Fidencio Walsh MD 03/25/2025 Telephone [facility] [address] [place] [address] H[place] [phone] Fidencio Walsh MD Results 03/25/2025 Refill [facility] [address] [place] [address] [place] [phone] Fidencio Walsh MD Acquired hypothyroidism 03/21/2025 External PBMM Data [facility] [address] [place] [phone] Pharmacy, Payor Data 03/19/2025 Refill [facility] [address] [place] [address] HÉ[place] SCH[place] [phone] Fidencio Walsh MD Seasonal allergic rhinitis due to pollen 02/22/2025 Refill [facility] [address] [place] [address] H[place] [phone] Fidencio Walsh MD Essential hypertension 02/21/2025 Telephone [facility] [address] [place] [phone] Fidencio Walsh MD REFERRAL 02/19/2025 Results Follow-Up [facility] [address] [place] [phone] Fidencio Walsh MD ED - Called Back For Treatment Only 02/18/2025 3:00 PM EDT Office Visit [address] [place] [phone] Fidencio Walsh MD Prediabetes (Primary Dx); Acquired hypothyroidism; Ductal carcinoma in situ (DCIS) of right breast; Class 1 obesity due to excess calories with serious comorbidity and body mass index (BMI) of 30.0 to 30.9 in adult; Coronary artery disease involving coronary bypass graft of nuiqs[place] heart without angina pectoris; Essential hypertension; Iron deficiency anemia, unspecified iron deficiency anemia type; Mixed hyperlipidemia; HERB (obstructive sleep apnea); Stage 3a chronic kidney disease; Vaginal bleeding 02/18/2025 Travel from Last 3 Months Immunizations Immunization Administration Dates Next Due Arexvy (RSV, Adults 60+ yrs) 07/30/2024,06/30/20 Fluad Quad 65+ 05/28/2020 Fluzone High-Dose 65+YRS [...] Description 06/20/2025 2:00 PM EDT Office Visit [facility] [address] [place] [phone] Fidencio Walsh MD [address] [place] [address] Health Maintenance Due Date Last Done Comments COLOGUARD 1995 COLON CANCER SCREENING 5 YEA R SIGMOIDOSCOPY 1995 CT COLONOGRAPHY 1995 FECAL OCCULT BLOOD TEST 1995 FIT Testing (1 year) 1995 DXA SCAN 10/19/2023 10/19/2021, 10/19/2021 LIPID PANEL 03/08/2025 03/08/2024, 01/28, 02/23/2024, Additional history exists COVID-19 Vaccine (2023-2 5 season) 2025 07/13/2024, 05/26/2023, 05/31/2022, Additional [...] 1:32 PM EDT 04/04/2025 Comment:Urine Release to [facility] Riky [facility] (AMBULATORY) - 04/05/2025 1:07 PM EDT Performed at: - [address] [id number] Junior Accounting Clerk: Sidney Verdin PhD, Phone: [phone] Fidencio Walsh MD URINE ORDERABLES Final Result [facility] [address] [place] [address], [facility] [address] [id number], * (ABNORMAL) Basic Metabolic Panel (04/04/2025 1:32 [...] 1:32 PM EDT 04/04/2025 Comment:Blood Release to pat i [facility] [place] (AMBULATORY) - 04/05/2025 11:07 AM EDT Performed at: - [address] [id number] Junior Accounting Clerk: Sidney Verdin PhD, Phone: [phone] us Fidencio Walsh MD LAB BLOOD ORDERABLES Final Resul t Performing Organization Address [facility] Co de Phone Number [facility] ([facility]) [address] [place] [address], [place] [phone] [facility] [address] [place] [address], [place] [phone] * LABS SCANNED (03/25/2025) us Fidencio Walsh MD LAB BLOOD ORDERABLES Final Resul t * TSH (02/18/2025 2:29 PM EDT) TSH 1.230 0.450 - 4.500 uIU/mL [facility] Blood Structure of right upper limb / Unknown 02/18/2025 2:29 PM EDT 02/18/2025 Comment:Blood Release to pat i [facility] (AMBULATORY) - 02/19/2025 7:06 AM EDT Performed at: - [address] [id number] Junior Accounting Clerk: Sidney Verdin PhD, Phone: [phone] us Fidencio Walsh MD LAB BLOOD ORDERABLES Final Resul t Performing Organization Address [facility] Co de Phone Number [facility] ([facility] [address] [place] [address], [facility] [address] [place] [address], * T4, Free (02/18/2025 2:29 PM EDT) Free T4 1.43 0.82 - 1.77 ng/dL [facility] Blood Structure of right upper limb / Unknown 02/18/2025 2:29 PM EDT 02/18/2025 Comment:Blood Release to [facility]iky [facility] - 02/19/2025 7:06 AM EDT Performed at: - [facility] [id number] Junior Accounting Clerk: Sidney Verdin PhD, Phone: [phone] us Fidencio Walsh MD LAB BLOOD ORDERABLES Final Resul t [facility] ([facility] [address] [place] [address], [facility] [address] [place] [address], * POC Glucose, Blood (02/18/2025 2:28 PM EDT) Pathologist [facility] Glucose 87 70 - 130 mg/dL Lot Number [id number] Expiration Date 09/06/2025 Blood 02/18/2025 2:28 PM EDT us Fidencio Walsh MD POINT OF CARE TEST ORDERABLES Fi nal Result * POC Glycosylated Hemoglobin (Hb A1C) (02/18/2025 2:28 PM EDT) Hemoglobin A1C 5.6 4.5 - 5.7 % [facility] Lot Number [id number] [facility] Expiration Date 10/19/2026 [facility] Blood 02/18/2025 2:28 PM EDT us Fidencio Walsh MD POINT OF CARE TEST ORDERABLES Fi nal Result [facility]
[address] [place] [address], * Colonoscopy, Scan (06/04/2024) Javon Wing MD [...] 10:35 AM EDT 03/09/2024 Comment:Blood Release to [facility] [place] (AMBULATORY) - 03/12/2024 7:06 PM EDT Performed at: 02 - [facility] [id number] Junior Accounting Clerk: Sidney Verdin PhD, Phone: [phone] Fidencio Walsh MD LAB BLOOD ORDERABLES Final Resul t [facility] [address] [place] [address], [place] [phone] [facility] [address] [place] [address], [place] [phone] * Hepatitis C Antibody (02/08/2023 2:39 PM [...] 2:39 PM EDT 02/09/2023 Comment:Blood Release to pat i Narrative [facility] (AMBULATORY) - 02/10/2023 6:07 AM EDT Performed at: 01 - [facility] [address] [facility] [place], [place] [id number] Junior Accounting Clerk: Sidney Verdin PhD, Phone: [phone] Fidencio aWlsh MD LAB BLOOD ORDERABLES Final Resul t [facility] [address] [place] [address], [facility] [address] [place] [address], * HM MAMMOGRAPHY (01/17/2022) Anatomical Region Laterality Modality Other [facility] HEALTH MAINTENANCE Final Resu lt * DEXA SCAN (10/19/2021) Anatomical Region Laterality Modality Other [facility] HEALTH MAINTENANCE Final Resu lt from Last 3 Months or Most Recently Relevant to Health Maintenance Insurance [employer] O Care Teams Dictating Machine Transcriber Relationship Specialty Start Date End Date Fidencio Walsh MD [address] [place] [address] [place] [id number] PCP - General Internal Medicine 08/09/22
--- OUTSIDE RECORDS SUMMARY | 2025-05-16 11:23 | XMS_ITS | Encounter Summary ---
Author Organization [facility] Address [address] [place] [address] Care Team Providers Care Slots Manager Name Role Phone Fidencio Walsh MD Primary Care Provider [phone] Encounter Details Date Type Department Care Team (Late st Contact Info) Description 03/26/2025 Results Follow-Up [facility] [address] [place] [address] Fidencio Walsh MD [address] [place] [address] [place] [address] Social History Tobacco [...] Description 06/20/2025 2:00 PM EDT Office Visit [facility] [address] [place] [phone] Fidencio Walsh MD [address] [place] [address] documented as of this encounter Visit Diagnoses Not on filedocumented in this encounter Care Teams Slots Manager Relationship Specialty Start Date End Date Fidencio Walsh MD [address] [address] PCP - General Internal Medicine 08/09/22 documented as of this encounter
--- OUTSIDE RECORDS SUMMARY | 2025-05-16 11:23 | XMS_ITS | Encounter Summary ---
Author Organization [facility] Address [address] [place] [id number] Care Team Providers Care Business Management Professor Name Role Phone Fidencio Walsh MD Primary Care Provider [phone] Reason for Visit * Reason Onset Date Comments Med Refill 04/17/2025 Encounter Details Date Type Department Care Team (Late st Contact Info) Description 04/17/2025 Refill [facility] [address] [place] [address] [place] [id number] Fidencio Walsh MD [address] [place] [address] [place] [address] Social History Tobacco [...] Miscellaneous Notes * Telephone Encounter - Michael uBstamante RegSched Rep - 04/17/2025 10:09 AM EDT Caller: Alba Gerber Relationship: Self Best call back number: [phone] Requested Prescriptions: Requested Prescriptions Pending Prescriptions Disp Refills carvedilol (COREG) 12.5 MG tablet Sig: Take 1 tablet by mouth 2 (Two) Times a Day With Meals. coenzyme Q10 100 MG capsule Pharmacy where request should be sent: [facility] [address] [phone] [facility] [phone] FX Last office visit with prescribing clinician: [...] 06/20/2025 2:00 PM EDT Office Visit [facility] [address] [place] [phone] Fidencio Walsh MD [address] [place] [address] [place] [id number] documented as of this encounter Visit Diagnoses Not on filedocumented in this encounter Care Teams Business Management Professor Relationship Specialty Start Date End Date Fidencio Walsh MD [address] [place] [address] [place] [id number] PCP - General Internal Medicine 08/09/22 documented as of this encounter
--- OUTSIDE RECORDS SUMMARY | 2025-05-16 11:23 | XMS_ITS | Encounter Summary ---
Author Organization [facility] Address [address] [place] [address] Care Team Providers Care Flattening Press Operator Name Role Phone Fidencio Walsh MD Primary Care Provider [phone] Reason for Visit * Reason Onset Date Comments Med Refill 09/28/2023 Encounter Details Date Type Department Care Team (Late st Contact Info) Description 09/28/2023 Refill [facility] [address] [place] [address] [place] [phone] Fidencio Walsh MD [address] [place] [address] [place] [address] Social History Tobacco Use Types Packs/Day [...] Gerber Relationship: Self Best call back number: [phone] Requested Prescriptions: Requested Prescriptions Pending Prescriptions Disp Refills anastrozole (ARIMIDEX) 1 MG tablet Pharmacy where request should be sent: [id number] - [place], [place] - [address] [address] [address] [place] [address] [address] - [phone] - [phone] FX Last office visit with prescribing clinician: 08/02/2023 Last telemedicine visit with prescribing clinician: Visit date not found Next office visit with prescribing clinician: 11/01/2023 Additional details provided by patient: ALBA HAS NONE LEFT, NEEDS A SCRIPT SENT TO [facility], PLEASE SEND FOR 90 DAYS. Does the [...] Description 06/20/2025 2:00 PM EDT Office Visit [facility] [address] [place] [address] [place] [phone] Fidencio Walsh MD [address] [place] [address] [place] [id number] documented as of this encounter Visit Diagnoses Not on filedocumented in this encounter Care Teams Flattening Press Operator Relationship Specialty Start Date End Date Fidencio Walsh MD [address] [place] [address] [place] [id number] PCP - General Internal Medicine 08/09/22 documented as of this encounter
== END 2025-05-15 23:59 | disposition home or self-care (01) ==
LOC: LAB.DROPOF 05-16 11:21
PROVIDERS: PCP Nurse Practitioner; Visit Provider Nurse Practitioner
DX: B35.1 Tinea unguium (principal)
CPT/HCPCS: 87101; 87220

== ENCOUNTER 2025-06-21 14:48 | Outpatient (RCR) | payer MEDICARE, SELFPAY | END 2025-06-21 23:59 | disposition home or self-care (01) | LOC: PT 14:48 | PROVIDERS: Visit Provider Pediatrics | DX: R53.81 Other malaise (principal) | CPT/HCPCS: 97162 ==

== ENCOUNTER 2025-07-11 13:00 | Outpatient (RCR) | payer MEDICARE, SELFPAY | END 2025-07-11 23:59 | disposition home or self-care (01) | LOC: PT 13:00 | PROVIDERS: Visit Provider Pediatrics | DX: R53.81 Other malaise (principal); R26.81 Unsteadiness on feet | CPT/HCPCS: 97110; 97112; 97530 ==

== ENCOUNTER 2025-07-17 09:02 | Outpatient (CLI) | payer MEDICARE, SELFPAY ==
[2025-07-17 08:04] VITALS: BMI 29.0
--- NOTE | 2025-07-17 11:04 | ECG_ITS ---
APPROVED REPORT Exam: Resting ECG HR:49 bpm ECG Measurements Heart Rate 49 AXES MI 99 P 197 QRSd 81 QRS -22 QT 442 T 32 QTc 412 Conclusion Sinus bradycardia LOW QRS VOLTAGE IN PRECORDIAL LEADS [QRS DEFLECTION < 1.0 mV IN CHEST LEADS] POSSIBLE RIGHT VENTRICULAR CONDUCTION DELAY [RSR (QR) IN V1/V2] MODERATE VOLTAGE CRITERIA FOR LVH, CONSIDER NORMAL VARIANT [MEETS CRITERIA IN ONE OF: R(aVL), S(V1), R(V5), R(V5/V6)+S(V1)] ANTERIOR MYOCARDIAL INFARCTION , PROBABLY OLD [40+ ms Q WAVE AND/OR ST/T ABNORMALITY IN V3/V4] ABNORMAL ECG UNCONFIRMED REPORT Electronically signed by : Sanchez Amaral MD 07/18/2025 08:30:16
[2025-07-17 11:40] LABS: Hematocrit 43.4 % (37.0-47.0); Hemoglobin 14.1 g/dL (12.2-16.2); Immature Granulocytes % 0.5 %; Mean Corpuscular HGB Conc 32.5 g/dL (31.8-35.4); Mean Corpuscular Hemoglobin 30.7 pg (27.0-31.2); Mean Corpuscular Volume 94.3 fl (81-99); Nucleated Red Blood Cells % 0 %; Platelet Count 223 K/mm3 (142-424); Red Blood Count 4.60 M/mm3 (4.20-5.40); Red Cell Distribution Width-SD 44.7 fL; White Blood Count 6.3 K/mm3 (4.8-10.8)
[2025-07-17 11:48] LABS: Alanine Aminotransferase 16 U/L (12-78); Albumin Level 4.6 g/dl (3.5-5.0); Albumin/Globulin Ratio 1.6 (1.1-1.8); Alkaline Phosphatase 63 U/L (38-126); Anion Gap 9.1 mEq/L (5-15); Aspartate Amino Transferase 43 U/L (14-36); Bilirubin,Total 0.5 mg/dl (0.2-1.3); Blood Urea Nitrogen 14 mg/dl (7-17); Calcium 9.1 mg/dl (8.4-10.2); Carbon Dioxide 27 mmol/L (22.0-30.0); Chloride 98 mmol/L (98-107); Creatinine Clearance Estimated 48 mL/min (50-200); Creatinine,Serum 1.20 mg/dl (0.52-1.04); Estimated Glomerular Filt Rate 44 ml/min (>60); GFR (African American) 53 ML/MIN (>60); Globulin 2.9 g/dL (1.3-3.2); Glucose 95 mg/dl (74-100); Potassium 4.1 mmoL/L (3.5-5.1); Sodium 130 mmol/L (136-145); Total Protein,Serum 7.5 g/dl (6.3-8.2)
== END 2025-07-17 23:59 | disposition home or self-care (01) ==
LOC: PREOP 09:03
PROVIDERS: PCP Pediatrics; Visit Provider Obstetrics & Gynecology
DX: Z01.810 Encounter for preprocedural cardiovascular examination (principal); Z01.812 Encounter for preprocedural laboratory examination; I25.2 Old myocardial infarction; R94.31 Abnormal electrocardiogram [ECG] [EKG]
CPT/HCPCS: 80053; 85025; 93005

== ENCOUNTER 2025-07-22 07:03 | Day surgery (SDC) | payer MEDICARE, SELFPAY ==
[2025-07-17 14:18] VITALS: BMI 29.0
[2025-07-22] VITALS (10 sets, daily range): BP systolic 148–187; BP diastolic 72–87; PULSE 48–60; RESP 12–18; TEMP 36.1–36.2; O2SAT 94–98
[2025-07-22] MEDS: LACTATED RINGERS 1000ML 1,000 ML 25 ML IV (07:33)
[2025-07-22] MEDS: ACETAMINOPHEN 500MG TAB 1000 MG PO (07:33)
--- NOTE | 2025-07-22 07:51 | P.PNANES_ITS ---
[facility] Disclaimer: The information contained in this section may have been updated after the patient was seen, as this information can be updated by other users. Medical History Hematuria without proteinuria Encounter for preoperative assessment Abnormal finding on ultrasound Onychomycosis Postmenopausal bleeding Normal esophagogastroduodenoscopy (EGD) Colonoscopy planned Chronic kidney disease Hypertension Mixed hyperlipidemia Normal colonoscopy HERB (obstructive sleep apnea) CAD (coronary artery disease) Surgical History Hx of tubal ligation Coronary artery disease involving coronary bypass graft History of cholecystectomy History of carpal tunnel release History of ankle surgery Family History Other Cancer Diabetes Heart disease Hypertension Kidney disease Social History Smoking Status: Former smoker alcohol intake: former substance use type: unknown current occupational status: retired and disabled Travel in the last 8 weeks?: None [facility] Anesthesia Checklist Patient Identification Patient Identification: Arm Band and Verbal (Name & ) Structural Data Admitted From: Home Planned Operative Procedure/s: D&C polypectomy Consent for Planned Operative Procedure(s) Verified: Yes Verified Documents: Surgical Consent and History and Physical NPO Status Verified Time NPO: 00:00 Additional verifications Anesthesia Reactions: No Hx Blood Transfusions: No Blood Transfusion Reaction: No Airway Assessment Mallampati Score:: Class II Dentition: Good Dentition Neurological Assessment Level of Consciousness: Awake, Alert and Appropriate Hx Seizures: No Numbness or tingling in extremities: No Anesthesia Plan Anesthesia Risk discussed: Yes Anesthesia Plan: Verified ASA Class: II Anesthesia Type: General
[2025-07-22] MEDS: SODIUM CHLORIDE IRRIG SOLUTION 3,000 ML 25 ML IR (08:50)
--- NOTE | 2025-07-22 09:17 | P.PNANES_ITS ---
[facility] Anesthesia Record Part I Anesthesia Record I Intake, IV Amount: 700 Hydration: Adequate Estimated blood loss (mL): 0 Urine output (mL): 0 Blood Products used (#): none Blood Pressure: 163/87 SaO2: 97 Pulse Rate: 58 Airway Patency: Patent Respiratory Rate: 12 Temperature: 97 F Patient is:: Drowsy and Stable Stable to PACU at:: 09:10
--- NOTE | 2025-07-22 09:17 | P.OP_ITS ---
Date of procedure: 07/22/25 Pre-op Diagnosis:: 1. Postmenopausal bleeding 2. Abnormal ultrasound finding Post-op Diagnosis:: 1. Postmenopausal bleeding 2. Abnormal ultrasound finding 3. Cystocele, stage 1-2 Procedure performed:: 1. Hysteroscopy, dilation and curettage with Myosure curettage Surgeon:: Xi Nath DO Circuitry Negative Inspector(s):: N/a EVALUATION SPECIALIST:: Teja Bustillo Anesthesia: GETA Estimated blood loss (mL): 5 Clinical Note:: Ms Alba Gerber is a 75 yo P2002 who presents to [facility] for scheduled procedure. She complains of postmenopausal bleeding. She went through menopause about 25 years ago, ~ age 50. History of vaginal delivery x 2. Bleeding started a few months ago and is light in amount but is red and sometimes brown in color. Denies pain. Last year she was anemic and required a blood transfusion but source of anemia was never found. She has had colonoscopy and EGD and no source of bleeding identified. She admits to hemorrhoids. Pelvic ultrasound 05/01/25 demonstrated anteverted uterus, slightly enlarged due to the large amount of fluid within the endometrium. There is a mass in the cervix that measures up to 2.5 cm in size with a vascular pedicle. Likely an endometrial polyp. The endometrium appears atrophic. The left ovary is seen and is small and atrophic appearing. The right ovary is not visualized. Fluid in the cul-de-sac. Operative findings:: 1. On bimanual exam, uterus slightly enlarged, midposition. No adnexal masses palpated. Stage 1-2 cystocele noted in dorsal lithotomy position. 2. On hysteroscopic exam, bilateral tubal ostia not easily visualized secondary to scarring. Grossy normal atrophic endometrial tissue at the fundus. Around the lower uterine segment there appeared to be yellowish colord plaques scattered around the endometrium. Small polyp like mass in the cervical canal Operative note:: Risks, benefits and alternatives were discussed with the patient. Risks include but are not limited to bleeding, infection, uterine perforation and VTE. Patient voiced understanding and agreed to proceed. She was wheeled back to the operating room and placed under general anesthesia without difficulty. She was placed in dorsal lithotomy position and prepped and draped in the normal sterile fashion. A bimanual exam was performed. A weighted Auvard was placed in the vaginal vault. Single tooth tenaculum was placed on posterior lip of the cervix. Uterus sounded to 10. Sequential Oziel dilators were used to dilate the cervical os. Hysteroscope was inserted through the cervix without difficulty. Endometrial cavity was evaluated. See findings above. Pictures were taken. Myosure was inserted through the hysteroscope. Myosure curettage was performed per protocol in a 360 degree fashion under direct visualization. A small amount of tissue was obtained. Pictures were taken. Hysteroscope with Myosure was removed. Medium size sharp curette was then inserted through the cervix and into the uterine cavity. Sharp curettage was performed in a 360 degree fashion. Sharp curette was used to remove mass/polyp within cervical canal. Instruments were removed from the vagina. Tenaculum site was hemostatic Patient was awaken from anesthesia without difficulty. She was transported to recovery room in stable condition. Patient will be discharged home when awake and ambulating. She was given postop instructions as well as instructions to follow-up in the office in 2 weeks. Condition: stable Disposition: same day Specimens:: 1. Endometrial curettings 2. Cervical polyp Complications:: None
--- NOTE | 2025-07-22 11:09 | P.PNANES_ITS ---
[facility] Anesthesia Record Part II Anesthesia Record Part II Discharge Time: 09:40 Destination: Surgical Day Care (OP Surgery) PACU nurse assessment reviewed?: Yes Patient Condition:: Good Anesthesia Complications:: None Swallowing reflex intact?: Yes Airway Patency: Patent Cyanosis?: No Blood Pressure: 155/80 SaO2: 97 Respiratory Rate: 16 Pulse Rate: 58 Temperature: 97 F Mental Status: Alert & Oriented Pain level:: 0 Nausea and/or vomitting:: None Intake, IV Amount: 0 Hydration: Adequate
== END 2025-07-22 10:11 | disposition home or self-care (01) ==
PROVIDERS: PCP Pediatrics; Visit Provider Obstetrics & Gynecology
PROC: 0UDB8ZZ Extraction of Endometrium, Via Natural or Artificial Opening Endoscopic (ICD-10-PCS; CPT 58558; principal; 2025-07-22 08:30)
DX: N95.0 Postmenopausal bleeding; I25.10 Atherosclerotic heart disease of native coronary artery without angina pectoris; N18.9 Chronic kidney disease, unspecified; I12.9 Hypertensive chronic kidney disease with stage 1 through stage 4 chronic kidney disease, or unspecified chronic kidney disease; E78.2 Mixed hyperlipidemia; Z90.49 Acquired absence of other specified parts of digestive tract; Z98.51 Tubal ligation status; Z95.5 Presence of coronary angioplasty implant and graft; Z87.891 Personal history of nicotine dependence; Z79.82 Long term (current) use of aspirin; A63.0 Anogenital (venereal) warts; C54.1 Malignant neoplasm of endometrium
CPT/HCPCS: 58558; 88305; 88341; 88342; 88360; 88365; J1100; J1596; J2003; J2250; J2405; J2704; J3010; J7120

== ENCOUNTER 2025-07-29 14:53 | Outpatient (RCR) | payer MEDICARE, SELFPAY | END 2025-07-29 23:59 | disposition home or self-care (01) | LOC: PT 14:53 | PROVIDERS: PCP Pediatrics; Visit Provider Pediatrics | DX: R53.81 Other malaise (principal) | CPT/HCPCS: 97112; 97530 ==